=== PATIENT | male | born 1940 | race Caucasian/White ===

== ENCOUNTER 2024-02-03 15:43 | Inpatient (IN) | payer MEDICARE, BC ==
--- NOTE | 2024-02-03 16:13 | ED ---
Nausea/Vomiting/Diarrhea HPI - General Chief complaint: Nausea/Vomiting/Diarrhea Stated complaint: Generalized Weakness Time Seen by Provider: 02/03/24 15:59 Source: patient, EMS, RN notes reviewed Mode of arrival: EMS Limitations: no limitations - History of Present Illness Initial comments: This is an 83 year old male who presents to the emergency department for nausea and vomiting. Patient's daughter is at bedside and provides the majority of the history. States that she received a call from him yesterday stating that he was nauseous and short of breath. They went over to his house and he was having ongoing nausea and vomiting along with diarrhea and difficulty breathing. They called EMS, however he refused transport at that time because symptoms had started to subside. This morning the nausea and vomiting returned. He was also very weak and unable to get himself up out of his chair. This prompted family to call EMS again. Patient currently denies any chest pain, shortness of breath, or abdominal pain. MD complaint: nausea, vomiting - Related Data Home Medications Medication Instructions Recorded Confirmed Apixaban [Eliquis] 5 mg PO BID 02/03/24 02/03/24 Atorvastatin [Lipitor] 40 mg PO HS 02/03/24 02/03/24 Furosemide [Lasix] 20 mg PO DAILY PRN 02/03/24 02/03/24 Losartan [Cozaar] 25 mg PO DAILY 02/03/24 02/03/24 Metoprolol Succinate (ER) [Toprol 12.5 mg PO DAILY 02/03/24 02/03/24 Xl] Tamsulosin [Flomax] 0.4 mg PO HS 02/03/24 02/03/24 predniSONE 20 mg PO DAILY 02/03/24 02/03/24 Allergies Allergy/AdvReac Type Severity Reaction Status Date / Time itraconazole [From Sporanox] Allergy Rash/Hives Verified 02/03/24 19:35 Review of Systems ROS Statement: Those systems with pertinent positive or pertinent negative responses have been documented in the HPI. ROS Other: All systems not noted in ROS Statement are negative. Past Medical History Past Medical History: Atrial Fibrillation History of Any Multi-Drug Resistant Organisms: None Reported Past Psychological History: No Psychological Hx Reported Smoking Status: Former smoker Past Alcohol Use History: None Reported Past Drug Use History: None Reported General Exam Limitations: no limitations General appearance: alert, in no apparent distress Head exam: Present: atraumatic, normocephalic, normal inspection Respiratory exam: Present: normal lung sounds bilaterally. Absent: respiratory distress, wheezes, rales, rhonchi, stridor Cardiovascular Exam: Present: tachycardia, irregular rhythm GI/Abdominal exam: Present: soft, normal bowel sounds. Absent: distended, tenderness, guarding, rebound, rigid Neurological exam: Present: alert, oriented X3, CN II-XII intact Psychiatric exam: Present: normal affect, normal mood Skin exam: Present: warm, dry, intact, normal color. Absent: rash Course Vital Signs 02/03/24 02/03/24 02/03/24 15:46 17:36 18:13 Temperature 98.4 F 100.6 F H Pulse Rate 64 118 H 121 H Respiratory 16 17 24 Rate Blood Pressure 115/68 92/76 120/67 O2 Sat by Pulse 97 94 L 96 Oximetry 02/03/24 02/03/24 02/03/24 18:56 20:00 20:30 Temperature 100.6 F H 100.1 F H Pulse Rate 110 H 120 H Respiratory 18 18 Rate Blood Pressure 90/72 97/60 O2 Sat by Pulse 95 94 L Oximetry 02/03/24 02/03/24 02/03/24 20:40 21:00 21:10 Temperature Pulse Rate 93 117 H 99 Respiratory 18 18 16 Rate Blood Pressure 88/52 76/57 87/56 O2 Sat by Pulse 96 96 97 Oximetry 02/03/24 02/03/24 02/03/24 21:20 21:30 21:40 Temperature Pulse Rate 106 H 102 H 111 H Respiratory 18 16 18 Rate Blood Pressure 82/56 86/59 116/94 O2 Sat by Pulse 96 93 L 95 Oximetry 02/03/24 02/03/24 02/03/24 22:00 22:10 22:20 Temperature Pulse Rate 112 H 112 H 106 H Respiratory 18 18 18 Rate Blood Pressure 81/51 84/52 96/79 O2 Sat by Pulse 96 96 96 Oximetry 02/03/24 02/03/24 02/03/24 22:30 22:40 22:50 Temperature Pulse Rate 124 H 113 H 121 H Respiratory 18 18 18 Rate Blood Pressure 86/52 88/48 71/49 O2 Sat by Pulse 95 94 L 95 Oximetry 02/03/24 02/03/24 02/03/24 23:00 23:10 23:20 Temperature 98.2 F Pulse Rate 113 H 109 H 110 H Respiratory 18 18 16 Rate Blood Pressure 77/49 86/44 73/49 O2 Sat by Pulse 95 94 L 95 Oximetry 02/03/24 02/03/24 23:30 23:40 Temperature Pulse Rate 108 H 103 H Respiratory 18 18 Rate Blood Pressure 84/52 79/50 O2 Sat by Pulse 95 94 L Oximetry Medical Decision Making - Medical Decision Making This is an 83 year old male who presents to the emergency department for nausea and vomiting. Was pt. sent in by a medical professional or institution? @ -No Did you speak to anyone other than the patient for history? @ -His daughter provided the majority of the history. Did you review nursing and triage notes? @ -Yes, and I agree, it is accurate with regards to the patient's symptoms. Were old charts reviewed? @ -No Differential Diagnosis? @ -Differential Nausea and Vomiting: Gastroenteritis, cholecystitis, appendicitis, pancreatitis, migraine, benign positional vertigo, food borne illness, pyelonephritis, irritable bowel syndrome, influenza, Covid, GERD, incarcerated hernia, intestinal obstruction, this is not meant to be an all-inclusive list. EKG interpreted by me (3pts min.)? @ -EKG interpreted by me demonstrating the following: A-fib with RVR. Ventricular rate 119 bpm, QRS duration 96 ms, QTc 375 ms. X-rays interpreted by me (1pt min.)? @ -Chest x-ray obtained. My interpretation identifies a patchy opacity at the left lung base. CT interpreted by me (1pt min.)? @ -CT scan of the abdomen and pelvis obtained. My interpretation identifies no evidence of bowel wall thickening or free air. U/S interpreted by me (1pt. min.)? @ -Not obtained What testing was considered but not performed? (CT, X-rays, U/S, labs)? Why? @ -None What meds were considered but not given? Why? @ -None Did you discuss the management of the patient with other professionals? @ -Yes, Dr. Brooks, who accepts the patient for admission. Did you reconcile home meds? @ -Yes Was smoking cessation discussed for >3mins.? @ -No Was critical care preformed (if so, how long)? @ -No Were there social determinants of health that impacted care today? How? (Joseph elessness, low income, unemployed, alcoholism, drug addiction, transportation, low edu. Level, literacy, decrease access to med. care, penitentiary, rehab)? @ -No Was there de-escalation of care discussed even if they declined? (Discuss DNR or withdrawal of care, Hospice)? @ -No What co-morbidities impacted this encounter? (DM, HTN, Smoking, COPD, CAD, C ancer, CVA, Hep., AIDS, mental health diagnosis, sleep apnea, morbid obesity)? @ -A-fib, CAD, HTN Was patient admitted / discharged? @ -Admitted. Lab work demonstrates signs of dehydration. Troponin negative, but on the higher side of normal at 0.026. COVID, influenza, and RSV testing negative. Urinalysis demonstrates rare bacteria, but is not overly suggestive of infection. Urine sent for culture. Chest x-ray demonstrates a patchy left lung base opacity suggestive of atelectasis versus less likely developing pneumonia. CT scan of the abdomen and pelvis reveals no acute process. Patient's heart rate was within normal limits on arrival, however he then went into A-fib with RVR. He was rehydrated with a liter bolus of IV fluids, however he remained in A-fib with RVR. He was subsequently started on a Cardizem drip. Nausea was well-controlled with Zofran and Reglan. When the patient was reevaluated, he was found to be febrile with a temperature 100.6 F. Ofirmev administered, however he remained febrile and was then given ibuprofen. Tem perature eventually came down. He remained in A-fib with RVR, however he started to become hypotensive and the Cardizem drip was discontinued. His heart rate had improved at that point. Patient appears to have some sort of infection given the fever and A-fib with RVR, however the specific infection is not clear. It may be related to pneumonia or a UTI, however neither of those are definitive. It could also be viral in nature. He was started on the pneumonia protocol with ceftriaxone and azithromycin to cover for potential infectious process. Blood culture and procalcitonin level ordered as well. Patient admitted to medicine for A-fib with RVR, nausea and vomiting, and infection of unknown etiology. Consult placed for cardiology and infectious disease. Case discussed with ED attending Dr. Gómez. Undiagnosed new problem with uncertain prognosis? @ -None Drug Therapy requiring intensive monitoring for toxicity (Heparin, Nitro, Insulin, Cardizem)? @ -Cardizem Were any procedures done? @ -None Diagnosis/symptom? @ -A-fib with RVR, nausea and vomiting, infection of unknown etiology Acute, or Chronic, or Acute on Chronic? @ -Acute Uncomplicated (without systemic symptoms) or Complicated (systemic symptoms)? @ -Complicated Side effects of treatment? @ -None Exacerbation, Progression, or Severe Exacerbation] @ -Not applicable Poses a threat to life or bodily function? @ -Yes, can lead to septic shock and - Lab Data Result diagrams: 02/03/24 16:14 02/03/24 16:14 Lab Results 02/03/24 02/03/24 02/03/24 Range/Units 16:14 16:14 16:14 WBC 8.0 (3.8-10.6) k/uL RBC 4.40 (4.30-5.90) m/uL Hgb 14.1 (13.0-17.5) gm/dL Hct 43.2 (39.0-53.0) % MCV 98.2 (80.0-100.0) fL MCH 32.0 (25.0-35.0) pg MCHC 32.6 (31.0-37.0) g/dL RDW 13.8 (11.5-15.5) % Plt Count 136 L (150-450) k/uL MPV 8.1 Neutrophils % 88 % Lymphocytes % 5 % Monocytes % 5 % Eosinophils % 1 % Basophils % 0 % Neutrophils # 7.0 (1.3-7.7) k/uL Lymphocytes # 0.4 L (1.0-4.8) k/uL Monocytes # 0.4 (0-1.0) k/uL Eosinophils # 0.1 (0-0.7) k/uL Basophils # 0.0 (0-0.2) k/uL Sodium 135 L (137-145) mmol/L Potassium 4.0 (3.5-5.1) mmol/L Chloride 103 (98-107) mmol/L Carbon Dioxide 27 (22-30) mmol/L Anion Gap 5 mmol/L BUN 35 H (9-20) mg/dL Creatinine 0.81 (0.66-1.25) mg/dL Est GFR (CKD-EPI)AfAm >90 (>60 ml/min/1.73 sqM) Est GFR (CKD-EPI)NonAf 82 (>60 ml/min/1.73 sqM) Glucose 115 H (74-99) mg/dL Plasma Lactic Acid Emeka 1.9 (0.7-2.0) mmol/L Calcium 8.3 L (8.4-10.2) mg/dL Magnesium 1.7 (1.6-2.3) mg/dL Total Bilirubin 1.2 (0.2-1.3) mg/dL AST 21 (17-59) U/L ALT 15 (4-49) U/L Alkaline Phosphatase 70 (38-126) U/L Troponin I (0.000-0.034) ng/mL C-Reactive Protein (<1.0) mg/dL NT-Pro-B Natriuret Pep pg/mL Total Protein 5.9 L (6.3-8.2) g/dL Albumin 3.6 (3.5-5.0) g/dL Lipase 27 (23-300) U/L Urine Color Urine Appearance (Clear) Urine pH (5.0-8.0) Ur Specific Gillett (1.001-1.035) Urine Protein (Negative) Urine Glucose (UA) (Negative) Urine Ketones (Negative) Urine Blood (Negative) Urine Nitrite (Negative) Urine Bilirubin (Negative) Urine Urobilinogen (<2.0) mg/dL Ur Leukocyte Esterase (Negative) Urine RBC (0-5) /hpf Urine WBC (0-5) /hpf Ur Squamous Epith Cells (0-4) /hpf Urine Bacteria (None) /hpf Urine Mucus (None) /hpf Urine Yeast (Budding) (None) /hpf Influenza Type A (PCR) (Not Detectd) Influenza Type B (PCR) (Not Detectd) RSV (PCR) (Not Detectd) SARS-CoV-2 (PCR) (Not Detectd) 02/03/24 02/03/24 02/03/24 Range/Units 16:14 16:14 16:14 WBC (3.8-10.6) k/uL RBC (4.30-5.90) m/uL Hgb (13.0-17.5) gm/dL Hct (39.0-53.0) % MCV (80.0-100.0) fL MCH (25.0-35.0) pg MCHC (31.0-37.0) g/dL RDW (11.5-15.5) % Plt Count (150-450) k/uL MPV Neutrophils % % Lymphocytes % % Monocytes % % Eosinophils % % Basophils % % Neutrophils # (1.3-7.7) k/uL Lymphocytes # (1.0-4.8) k/uL Monocytes # (0-1.0) k/uL Eosinophils # (0-0.7) k/uL Basophils # (0-0.2) k/uL Sodium (137-145) mmol/L Potassium (3.5-5.1) mmol/L Chloride (98-107) mmol/L Carbon Dioxide (22-30) mmol/L Anion Gap mmol/L BUN (9-20) mg/dL Creatinine (0.66-1.25) mg/dL Est GFR (CKD-EPI)AfAm (>60 ml/min/1.73 sqM) Est GFR (CKD-EPI)NonAf (>60 ml/min/1.73 sqM) Glucose (74-99) mg/dL Plasma Lactic Acid Emeka (0.7-2.0) mmol/L Calcium (8.4-10.2) mg/dL Magnesium (1.6-2.3) mg/dL Total Bilirubin (0.2-1.3) mg/dL AST (17-59) U/L ALT (4-49) U/L Alkaline Phosphatase (38-126) U/L Troponin I 0.026 (0.000-0.034) ng/mL C-Reactive Protein (<1.0) mg/dL NT-Pro-B Natriuret Pep 1880 pg/mL Total Protein (6.3-8.2) g/dL Albumin (3.5-5.0) g/dL Lipase (23-300) U/L Urine Color Urine Appearance (Clear) Urine pH (5.0-8.0) Ur Specific Gillett (1.001-1.035) Urine Protein (Negative) Urine Glucose (UA) (Negative) Urine Ketones (Negative) Urine Blood (Negative) Urine Nitrite (Negative) Urine Bilirubin (Negative) Urine Urobilinogen (<2.0) mg/dL Ur Leukocyte Esterase (Negative) Urine RBC (0-5) /hpf Urine WBC (0-5) /hpf Ur Squamous Epith Cells (0-4) /hpf Urine Bacteria (None) /hpf Urine Mucus (None) /hpf Urine Yeast (Budding) (None) /hpf Influenza Type A (PCR) Not Detected (Not Detectd) Influenza Type B (PCR) Not Detected (Not Detectd) RSV (PCR) Not Detected (Not Detectd) SARS-CoV-2 (PCR) Not Detected (Not Detectd) 02/03/24 02/03/24 Range/Units 19:15 20:00 WBC (3.8-10.6) k/uL RBC (4.30-5.90) m/uL Hgb (13.0-17.5) gm/dL Hct (39.0-53.0) % MCV (80.0-100.0) fL MCH (25.0-35.0) pg MCHC (31.0-37.0) g/dL RDW (11.5-15.5) % Plt Count (150-450) k/uL MPV Neutrophils % % Lymphocytes % % Monocytes % % Eosinophils % % Basophils % % Neutrophils # (1.3-7.7) k/uL Lymphocytes # (1.0-4.8) k/uL Monocytes # (0-1.0) k/uL Eosinophils # (0-0.7) k/uL Basophils # (0-0.2) k/uL Sodium (137-145) mmol/L Potassium (3.5-5.1) mmol/L Chloride (98-107) mmol/L Carbon Dioxide (22-30) mmol/L Anion Gap mmol/L BUN (9-20) mg/dL Creatinine (0.66-1.25) mg/dL Est GFR (CKD-EPI)AfAm (>60 ml/min/1.73 sqM) Est GFR (CKD-EPI)NonAf (>60 ml/min/1.73 sqM) Glucose (74-99) mg/dL Plasma Lactic Acid Emeka (0.7-2.0) mmol/L Calcium (8.4-10.2) mg/dL Magnesium (1.6-2.3) mg/dL Total Bilirubin (0.2-1.3) mg/dL AST (17-59) U/L ALT (4-49) U/L Alkaline Phosphatase (38-126) U/L Troponin I (0.000-0.034) ng/mL C-Reactive Protein 2.5 H (<1.0) mg/dL NT-Pro-B Natriuret Pep pg/mL Total Protein (6.3-8.2) g/dL Albumin (3.5-5.0) g/dL Lipase (23-300) U/L Urine Color Light Yellow Urine Appearance Clear (Clear) Urine pH 5.0 (5.0-8.0) Ur Specific Gillett 1.021 (1.001-1.035) Urine Protein Negative (Negative) Urine Glucose (UA) Negative (Negative) Urine Ketones Negative (Negative) Urine Blood Moderate H (Negative) Urine Nitrite Negative (Negative) Urine Bilirubin Negative (Negative) Urine Urobilinogen <2.0 (<2.0) mg/dL Ur Leukocyte Esterase Negative (Negative) Urine RBC 12 H (0-5) /hpf Urine WBC 2 (0-5) /hpf Ur Squamous Epith Cells 1 (0-4) /hpf Urine Bacteria Rare H (None) /hpf Urine Mucus Few H (None) /hpf Urine Yeast (Budding) Rare H (None) /hpf Influenza Type A (PCR) (Not Detectd) Influenza Type B (PCR) (Not Detectd) RSV (PCR) (Not Detectd) SARS-CoV-2 (PCR) (Not Detectd) - Radiology Data Radiology results: report reviewed, image reviewed Disposition Clinical Impression: Atrial fibrillation with RVR, Nausea & vomiting, Infection of uncertain etiology Disposition: ADMITTED IP TO THIS HOSP
[2024-02-03 16:25] LABS: Basophils % (A) 0 %; Eosinophils # (A) 0.1 k/uL (0-0.7); Eosinophils % (A) 1 %; HCT 43.2 % (39.0-53.0); HGB 14.1 gm/dL (13.0-17.5); Lymphocytes # (A) 0.4 k/uL (1.0-4.8); Lymphocytes % (A) 5 %; MCHC 32.6 g/dL (31.0-37.0); MCV 98.2 fL (80.0-100.0); Mean Platelet Volume 8.1; Monocytes # (A) 0.4 k/uL (0-1.0); Monocytes % (A) 5 %; Neutrophils % (A) 88 %; Platelet Count 136 k/uL (150-450); RDW 13.8 % (11.5-15.5)
[2024-02-03] MEDS: FAMOTIDINE 20 MG/2 ML VIAL IV STA (16:35)
[2024-02-03] MEDS: ONDANSETRON 4 MG/2 ML VIAL IVP STA (16:35)
[2024-02-03] MEDS: SODIUM CHLORIDE 0.9% 1,000 ML IV STA (16:36)
[2024-02-03 16:37] LABS: ALT 15 U/L (4-49); AST 21 U/L (17-59); African American GFR (CKD) >90 (>60 ml/min/1.73 sqM); Albumin 3.6 g/dL (3.5-5.0); Alkaline Phosphatase 70 U/L (38-126); Anion Gap 5 mmol/L; Blood Urea Nitrogen 35 mg/dL (9-20); Calcium 8.3 mg/dL (8.4-10.2); Carbon Dioxide 27 mmol/L (22-30); Chloride 103 mmol/L (98-107); Glucose 115 mg/dL (74-99); Lipase 27 U/L (23-300); Magnesium 1.7 mg/dL (1.6-2.3); Non-African American GFR(CKD) 82 (>60 ml/min/1.73 sqM); Sodium 135 mmol/L (137-145); Total Bilirubin 1.2 mg/dL (0.2-1.3); Total Protein 5.9 g/dL (6.3-8.2)
--- NOTE | 2024-02-03 17:21 | XR ---
EXAMINATION TYPE: XR chest 2V DATE OF EXAM: 02/03/2024 5:14 PM COMPARISON: None available. CLINICAL INDICATION: Male, 83 years old with history of STEVEN; H TECHNIQUE: XR chest 2V Frontal and lateral views of the chest. FINDINGS: Cardiac silhouette within normal limits for size. Patchy left lung base opacity which could reflect atelectasis and/or pneumonia. I find no pleural eff usion. No pneumothorax. No acute osseous abnormality. IMPRESSION: Patchy left lung base opacity suggestive of atelectasis versus less likely developing pneumonia. [facility], , 02/03/2024 5:19 PM
[2024-02-03] MEDS: METOCLOPRAMIDE 5 MG/ML 2 ML VIAL IVP STA (17:43)
[2024-02-03] MEDS: ACETAMINOPHEN IV (For NPO) 1,000 MG in EMPTY BAG 1 BAG IVPB STA (18:08)
[2024-02-03] MEDS: DILTIAZEM 125 MG in SODIUM CHLORIDE 0.9% 100 ML IV SCH (18:44)
[2024-02-03] MEDS ORDERED: PNEUMONIA PROTOCOL UTILIZED 1 EACH MISC PO PRN (19:00)
[2024-02-03] MEDS: SODIUM CHLORIDE 0.9% 500 ML 500 ML IV STA (19:01)
[2024-02-03] MEDS: IBUPROFEN 800 MG TAB PO STA (19:15)
--- NOTE | 2024-02-03 20:03 | CT ---
EXAMINATION TYPE: CT abdomen pelvis w con DATE OF EXAM: 02/03/2024 7:50 PM COMPARISON: None available. CLINICAL INDICATION: Male, 83 years old with history of N/V, fever; Abdominal pain, nausea and vomiti ng onset this morning. TECHNIQUE: Axial CT abdomen pelvis w con;Sagittal and coronal reformats were created on a separate w orkstation. Contrast used:80 mL of Isovue 300 with IV Contrast, (none if empty) Oral contrast used: without Oral Contrast (none if empty) CT DLP: 1159.9 mGycm, Automated exposure control for dose reduction was used. FINDINGS: LOWER CHEST: Unremarkable ABDOMEN LIVER: Unremarkable GALLBLADDER AND BILE DUCTS: Unremarkable. PANCREAS: Unremarkable. SPLEEN: Unremarkable. ADRENAL GLANDS: Unremarkable. KIDNEYS AND URETERS: Simple cysts bilaterally and additional hypodense lesions which are indeterminat e. For example, a 12 mm exophytic lesion in the left kidney (axial series 3 image 32). Punctate nonob structing left renal calculus. Additional small indeterminate lesions in the right kidney measuring u p to 10 mm (image 35). PELVIS BLADDER: Multiple bladder diverticula. REPRODUCTIVE: Unremarkable. ABDOMEN & PELVIS STOMACH AND BOWEL: Stomach and duodenum are unremarkable. Scattered diverticula are noted throughout the colon. No evidence of bowel obstruction. PERITONEUM/RETROPERITONEUM: No evidence of pneumoperitoneum or free fluid. VASCULATURE: No evidence of aortic aneurysm. MUSCULOSKELETAL: Osseous structures demineralized. Multilevel thoracolumbar spinal degenerative carrillo es. Grade 1 anterolisthesis of L4 and L5. [id number] age-indeterminate compression deformities of the T12 and L1 vertebral bodies. LYMPH NODES: No gross evidence for lymphadenopathy. SOFT TISSUE/ABDOMINAL WALL: Unremarkable IMPRESSION: 1. No acute abnormality in the abdomen/pelvis or CT findings to explain reported symptoms. 2. Age-indeterminate mild to moderate compression fractures of the T12 and L1 vertebral bodies. 3. Colonic diverticulosis. 4. Multiple bladder diverticula. 5. Indeterminate 12 mm exophytic lesion in the left kidney. Recommend outpatient MRI with IV contras t for further evaluation. [facility], , 02/03/2024 8:01 PM
[2024-02-03 20:13] LABS: Appearance,Urine Clear (Clear); Bacteria,Urine Rare /hpf; Bilirubin,Urine Negative (Negative); Blood,Urine Moderate (Negative); Budding Yeast,Urine Rare /hpf; Color,Urine Light Yellow; Glucose,Urine (UA) Negative (Negative); Ketones,Urine Negative (Negative); Leukocyte Esterase,Urine Negative (Negative); Mucus,Urine Few /hpf; Nitrite,Urine Negative (Negative); Protein,Urine Negative (Negative); RBC,Urine 12 /hpf (0-5); Specific Gravity,Urine 1.021 (1.001-1.035); Squamous Epithelial Cell,Urine 1 /hpf (0-4); Urobilinogen,Urine <2.0 mg/dL (<2.0); WBC,Urine 2 /hpf (0-5)
[2024-02-03] MEDS ORDERED: ONDANSETRON 4 MG/2 ML VIAL IVP PRN (20:28)
[2024-02-03] MEDS ORDERED: HYDROcodone/APAP 5-325MG 1 EACH TAB PO PRN (20:28)
[2024-02-03] MEDS ORDERED: ACETAMINOPHEN TAB 325 MG TAB PO PRN (20:28)
[2024-02-03] MEDS ORDERED: MORPHINE SULFATE 4 MG/ML SYRINGE IV PRN (20:28)
[2024-02-03] MEDS ORDERED: IBUPROFEN 400 MG TAB PO PRN (20:28)
[2024-02-03] MEDS ORDERED: NALOXONE 0.4 MG/ML 1 ML VIAL IV PRN (20:28)
[2024-02-03] MEDS ORDERED: FUROSEMIDE 20 MG TAB PO PRN (20:31)
[2024-02-03] MEDS: DILTIAZEM DRIP BOLUS FROM BAG 1 MG SOLN IV ONE (20:48)
[2024-02-03] MEDS: SODIUM CHLORIDE 0.9% 1,000 ML IV SCH (20:57)
[2024-02-03] MEDS: ATORVASTATIN 40 MG TAB PO SCH (20:58)
[2024-02-03] MEDS: TAMSULOSIN 0.4 MG CAP.ER.24H PO SCH (20:58)
[2024-02-03] MEDS: APIXABAN 5 MG TAB PO SCH (20:58)
[2024-02-03] MEDS: AZITHROMYCIN 500 MG in SODIUM CHLORIDE 0.9% 250 ML IVPB STA (21:03)
[2024-02-04] MEDS: SODIUM CHLORIDE 0.9% 500 ML 500 ML IV ONE (00:07)
[2024-02-04] MEDS: DEXTROSE 5% IN WATER 100 ML with AMIODARONE 150 MG IV ONE (03:36)
[2024-02-04] MEDS: AMIODARONE 360 MG in DEXTROSE 5% IN WATER 200 ML IV ONE (04:16)
[2024-02-04] MEDS: predniSONE 20 MG TAB PO SCH (08:11)
[2024-02-04] MEDS: PANTOPRAZOLE 40 MG/10 ML VIAL IV SCH (08:11)
[2024-02-04] MEDS: LOSARTAN 25 MG TAB PO SCH (08:11)
[2024-02-04] MEDS: METOPROLOL SUCCINATE (ER) 25 MG TAB.ER.24H PO SCH ×2 (08:11→12:49)
--- NOTE | 2024-02-04 09:42 | P.HPIM ---
History of Present Illness This is a pleasant 83 years old male with past medical history of atrial fibrillation on Eliquis at home. Presents because of vomiting for 3 days duration, he said he has been vomiting frequently for 2 days he could not eat and drink, yesterday he tried to drink and right away he threw up However patient has no abdominal pain, yesterday had normal bowel movement no urinary complaints like dysuria or change in frequency, no chest pain or dyspnea, he has mild headache but no dizziness weakness or numbness He quit smoking more than 20 years ago no alcohol or illicit drugs He complains from chronic lower extremity and ankle neuropathy at baseline he uses a walker. Patient also denies abdominal pain or back pain On admission patient has been having a fever of 100.6 Blood pressure borderline 91/72, heart rate 107 proBNP is elevated 1880 Urine analysis showing RBCs about 12 with moderate blood EKG showing A-fib with a rate of 116 Chest x-ray showing left lower lobe opacity, I reviewed the chest x-ray by myself and agree. Most likely related to pneumonia CT of the abdomen and pelvis is negative for acute process but showing age- indeterminate mild to moderate compression fracture of T12 and L1, multiple bladder diverticular disease and 12 mm left kidney lesion needs outpatient MRI with IV contrast per radiologist Review of Systems Review of systems CONSTITUTIONAL: No fever, no malaise, no fatigue. HEENT: No recent visual problems or hearing problems. Denied any sore throat. CARDIOVASCULAR: No orthopnea, PND, no palpitations, no syncope. PULMONARY: No shortness of breath, no cough, no hemoptysis. GASTROINTESTINAL: No diarrhea, no nausea, no vomiting, no abdominal pain. Normoactive bowel sounds. NEUROLOGICAL: No headaches, no weakness, no numbness. HEMATOLOGICAL: Denies any bleeding or petechiae. GENITOURINARY: Denies any burning micturition, frequency, or urgency. MUSCULOSKELETAL/RHEUMATOLOGICAL: Denies any joint pain, swelling, or any muscle pain. ENDOCRINE: Denies any polyuria or polydipsia. Past Medical History Past Medical History: Atrial Fibrillation History of Any Multi-Drug Resistant Organisms: None Reported Past Surgical History: Heart Catheterization With Stent Additional Past Surgical History / Comment(s): heart cath 2017 Past Psychological History: No Psychological Hx Reported Smoking Status: Former smoker Past Alcohol Use History: None Reported Past Drug Use History: None Reported Medications and Allergies Home Medications Medication Instructions Recorded Confirmed Type Apixaban [Eliquis] 5 mg PO BID 02/03/24 02/03/24 History Atorvastatin [Lipitor] 40 mg PO HS 02/03/24 02/03/24 History Furosemide [Lasix] 20 mg PO DAILY PRN 02/03/24 02/03/24 History Losartan [Cozaar] 25 mg PO DAILY 02/03/24 02/03/24 History Metoprolol Succinate (ER) [Toprol 12.5 mg PO DAILY 02/03/24 02/03/24 History Xl] Tamsulosin [Flomax] 0.4 mg PO HS 02/03/24 02/03/24 History predniSONE 20 mg PO DAILY 02/03/24 02/03/24 History Allergies Allergy/AdvReac Type Severity Reaction Status Date / Time itraconazole [From Sporanox] Allergy Rash/Hives Verified 02/03/24 19:35 Physical Exam Vitals: Vital Signs Temp Pulse Resp BP Pulse Ox 02/04/24 06:30 107 H 18 91/66 98 02/04/24 06:15 113 H 16 85/49 98 02/04/24 06:00 105 H 16 84/55 99 02/04/24 05:45 102 H 18 98/55 99 02/04/24 05:30 123 H 16 100/48 99 02/04/24 05:15 114 H 16 90/47 99 02/04/24 05:00 104 H 16 78/65 98 02/04/24 04:45 120 H 16 94/60 98 02/04/24 04:30 113 H 18 111/80 99 02/04/24 04:10 121 H 18 103/78 98 02/04/24 04:00 142 H 18 86/67 98 02/04/24 03:50 98.1 F 113 H 18 97/63 98 02/04/24 03:30 146 H 18 103/58 98 02/04/24 03:15 172 H 18 86/59 95 02/04/24 02:45 137 H 18 112/72 98 02/04/24 02:30 134 H 20 101/76 99 02/04/24 02:15 131 H 20 96/83 98 02/04/24 02:00 131 H 18 90/62 99 02/04/24 01:45 116 H 20 104/60 98 02/04/24 01:30 118 H 21 96/63 98 02/04/24 01:15 126 H 18 112/95 91 L 02/04/24 01:00 101 H 18 82/62 95 02/04/24 00:45 98 18 89/59 94 L 02/04/24 00:30 106 H 18 81/58 95 02/04/24 00:15 123 H 16 88/51 93 L 02/04/24 00:00 105 H 18 73/50 98 02/03/24 23:45 110 H 16 82/54 95 02/03/24 23:40 103 H 18 79/50 94 L 02/03/24 23:30 108 H 18 84/52 95 02/03/24 23:20 110 H 16 73/49 95 02/03/24 23:10 98.2 F 109 H 18 86/44 94 L 02/03/24 23:00 113 H 18 77/49 95 02/03/24 22:50 121 H 18 71/49 95 02/03/24 22:40 113 H 18 88/48 94 L 02/03/24 22:30 124 H 18 86/52 95 02/03/24 22:20 106 H 18 96/79 96 02/03/24 22:10 112 H 18 84/52 96 02/03/24 22:00 112 H 18 81/51 96 02/03/24 21:40 111 H 18 116/94 95 02/03/24 21:30 102 H 16 86/59 93 L 02/03/24 21:20 106 H 18 82/56 96 02/03/24 21:10 99 16 87/56 97 02/03/24 21:00 117 H 18 76/57 96 02/03/24 20:40 93 18 88/52 96 02/03/24 20:30 120 H 18 97/60 94 L 02/03/24 20:00 100.1 F H 110 H 18 90/72 95 02/03/24 18:56 100.6 F H 02/03/24 18:13 121 H 24 120/67 96 02/03/24 17:36 100.6 F H 118 H 17 92/76 94 L 02/03/24 15:46 98.4 F 64 16 115/68 97 Intake and Output 02/03/24 02/04/24 02/04/24 22:59 06:59 14:59 Intake Total 11.917 Balance 11.917 Intake: Intake, IV Titration 11.917 Amount Diltiazem 125 mg In 11.917 Sodium Chloride 0.9% 100 ml @ 5 MG/HR 5 mls/hr IV .Q24H [facility] Rx#:[id number] Other: Weight 84.368 kg GENERAL: The patient is alert and oriented x3, not in any acute distress. Well developed, well nourished. HEENT: Pupils are round and equally reacting to light. EOMI. No scleral icterus. No conjunctival pallor. Normocephalic, atraumatic. No pharyngeal erythema. No thyromegaly. CARDIOVASCULAR: S1 and S2 present. No murmurs, rubs, or gallops. PULMONARY: Chest is clear to auscultation, no wheezing , no crackles. ABDOMEN: Soft, nontender, nondistended, normoactive bowel sounds. No palpable organomegaly. MUSCULOSKELETAL: No joint swelling or deformity. EXTREMITIES: No cyanosis, clubbing, or pedal edema. NEUROLOGICAL: Gross neurological examination did not reveal any focal deficits. SKIN: No rashes. no petechiae. Results CBC & Chem 7: 02/03/24 16:14 02/03/24 16:14 Labs: Abnormal Lab Results - Last 24 Hours (Table) 02/03/24 02/03/24 02/03/24 Range/Units 16:14 16:14 19:15 Plt Count 136 L (150-450) k/uL Lymphocytes # 0.4 L (1.0-4.8) k/uL Sodium 135 L (137-145) mmol/L BUN 35 H (9-20) mg/dL Glucose 115 H (74-99) mg/dL Calcium 8.3 L (8.4-10.2) mg/dL C-Reactive Protein 2.5 H (<1.0) mg/dL Total Protein 5.9 L (6.3-8.2) g/dL Urine Blood (Negative) Urine RBC (0-5) /hpf Urine Bacteria (None) /hpf Urine Mucus (None) /hpf Urine Yeast (Budding) (None) /hpf 02/03/24 Range/Units 20:00 Plt Count (150-450) k/uL Lymphocytes # (1.0-4.8) k/uL Sodium (137-145) mmol/L BUN (9-20) mg/dL Glucose (74-99) mg/dL Calcium (8.4-10.2) mg/dL C-Reactive Protein (<1.0) mg/dL Total Protein (6.3-8.2) g/dL Urine Blood Moderate H (Negative) Urine RBC 12 H (0-5) /hpf Urine Bacteria Rare H (None) /hpf Urine Mucus Few H (None) /hpf Urine Yeast (Budding) Rare H (None) /hpf Assessment and Plan Assessment: Left lower lobe pneumonia Recurrent nausea vomiting and dehydration x 3 days A-fib and RVR, present on admission Mild hematuria, microscopic with multiple bladder diverticula and left kidney lesion 112 mm Chronic compression fracture of T12-L1 Plan: Continue with no IV fluids D5 normal saline at 75 mL/h Continue ceftriaxone and Zithromax Follow-up sputum culture and blood culture Infectious disease consult Cardiology team consult Continue with Luis Guaman urology consult for left kidney lesion, this was explained for the patient and risk of cancer explained to him as well Labs and medication were reviewed.. Continue same treatment. Continue with symptomatic treatment. Resume home medication. Monitor labs and vitals. DVT and GI prophylaxis. Further recommendations as per clinical course of the patient DVT prophylaxis: Eliquis GI Prophylaxis: Pepcid PT/OT: Pending Prognosis is guarded
[2024-02-04] MEDS: AMIODARONE 450 MG in DEXTROSE 5% IN WATER 250 ML IV SCH (10:30)
[2024-02-04] MEDS: DEXTROSE 5%-0.9% NACL 1,000 ML IV SCH (10:33)
--- NOTE | 2024-02-04 12:44 | P.CRDCN ---
History of Present Illness Consult date: 02/04/24 History of present illness: HISTORY OF PRESENTING ILLNESS 83-year-old male with past medical history of atrial fibrillation on anticoagulation with Eliquis. He is known to Dr. Sterling in [facility]. He also has prior history of CAD status post PCI in 2017. He has longstanding chronic atrial fibrillation. He is not got an ablation or cardioversion procedure done in the past. This time he presented to the hospital because of poor appetite, feeling weak for 3 to 4 days increased nausea vomiting. He was also noticed to have increased heart rate and low blood pressure and subjective fevers. On admission temp was 100.6 , heart rate 107, BP 91/72, EKG shows atrial fibrillation with RVR heart rate 119, frequent PVCs, Social Hx: Ex-smoker, denies any alcohol use drug use marijuana use Family Hx: non contributary to current clinical scenario REVIEW OF SYSTEMS 14 point review of system is negative except what is mentioned above in HPI. PHYSICAL EXAMINATION Neck: Brisk carotid upstroke, no jugular venous distention. Lungs: Mild decreased air entry in bilateral bases likely due to atelectasis Heart: Irregularly irregular pulse, no significant murmurs appreciated Abdomen: Soft nontender, positive bowel sounds. Extremities: 1-2+ pitting edema bilateral lower extremity with cold and clammy extremities, bluish discoloration neuro: Alert, oritented, no focal deficits. Detailed neuro exam was not performed. 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 Suspect PAD Ex-smoker Hypomagnesemia Nausea vomiting Hypotension, likely related to my dehydration and poor oral intake because of nausea Generalized weakness, due to above UTI Cardiac testing Admission labs: NT-proBNP 1800, initial Trope negative, magnesium 1.7 Admission ECG shows A-fib RVR heart rate 119 bpm, PVCs. Telemetry 02/04/2024, A-fib heart rate 104 bpm, intermittent PVCs PLAN Obtain echocardiogram Repeat troponin levels, TSH, lipid, HbA1c Give 3 g of magnesium sulfate. Continue amiodarone drip for now. Increase metoprolol succinate to 25 mg daily. I would not do long-term rhythm control with amiodarone. May consider cardioversion/ablation on outpatient basis. Hold losartan due to low blood pressure Obtain orthostatic vital signs Obtain bilateral lower extremity arterial doppler Tee Ramires, MD, FACC, RPVI Thank you for allowing [facility] to participate in this patient's care. Feel free to reach out in case of any followup questions. Past Medical History Past Medical History: Atrial Fibrillation History of Any Multi-Drug Resistant Organisms: None Reported Past Surgical History: Heart Catheterization With Stent Additional Past Surgical History / Comment(s): heart cath 2017 Past Psychological History: No Psychological Hx Reported Smoking Status: Former smoker Past Alcohol Use History: None Reported Past Drug Use History: None Reported Medications and Allergies Home Medications Medication Instructions Recorded Confirmed Type Apixaban [Eliquis] 5 mg PO BID 02/03/24 02/03/24 History Atorvastatin [Lipitor] 40 mg PO HS 02/03/24 02/03/24 History Furosemide [Lasix] 20 mg PO DAILY PRN 02/03/24 02/03/24 History Losartan [Cozaar] 25 mg PO DAILY 02/03/24 02/03/24 History Metoprolol Succinate (ER) [Toprol 12.5 mg PO DAILY 02/03/24 02/03/24 History Xl] Tamsulosin [Flomax] 0.4 mg PO HS 02/03/24 02/03/24 History predniSONE 20 mg PO DAILY 02/03/24 02/03/24 History Allergies Allergy/AdvReac Type Severity Reaction Status Date / Time itraconazole [From Sporanox] Allergy Rash/Hives Verified 02/03/24 19:35 Physical Exam Vitals: Vital Signs Temp Pulse Resp BP Pulse Ox 02/04/24 10:54 107 H 18 108/67 95 02/04/24 06:30 107 H 18 91/66 98 02/04/24 06:15 113 H 16 85/49 98 02/04/24 06:00 105 H 16 84/55 99 02/04/24 05:45 102 H 18 98/55 99 02/04/24 05:30 123 H 16 100/48 99 02/04/24 05:15 114 H 16 90/47 99 02/04/24 05:00 104 H 16 78/65 98 02/04/24 04:45 120 H 16 94/60 98 02/04/24 04:30 113 H 18 111/80 99 02/04/24 04:10 121 H 18 103/78 98 02/04/24 04:00 142 H 18 86/67 98 02/04/24 03:50 98.1 F 113 H 18 97/63 98 02/04/24 03:30 146 H 18 103/58 98 02/04/24 03:15 172 H 18 86/59 95 02/04/24 02:45 137 H 18 112/72 98 02/04/24 02:30 134 H 20 101/76 99 02/04/24 02:15 131 H 20 96/83 98 02/04/24 02:00 131 H 18 90/62 99 02/04/24 01:45 116 H 20 104/60 98 02/04/24 01:30 118 H 21 96/63 98 02/04/24 01:15 126 H 18 112/95 91 L 02/04/24 01:00 101 H 18 82/62 95 02/04/24 00:45 98 18 89/59 94 L 02/04/24 00:30 106 H 18 81/58 95 02/04/24 00:15 123 H 16 88/51 93 L 02/04/24 00:00 105 H 18 73/50 98 02/03/24 23:45 110 H 16 82/54 95 02/03/24 23:40 103 H 18 79/50 94 L 02/03/24 23:30 108 H 18 84/52 95 02/03/24 23:20 110 H 16 73/49 95 02/03/24 23:10 98.2 F 109 H 18 86/44 94 L 02/03/24 23:00 113 H 18 77/49 95 02/03/24 22:50 121 H 18 71/49 95 02/03/24 22:40 113 H 18 88/48 94 L 02/03/24 22:30 124 H 18 86/52 95 02/03/24 22:20 106 H 18 96/79 96 02/03/24 22:10 112 H 18 84/52 96 02/03/24 22:00 112 H 18 81/51 96 02/03/24 21:40 111 H 18 116/94 95 02/03/24 21:30 102 H 16 86/59 93 L 02/03/24 21:20 106 H 18 82/56 96 02/03/24 21:10 99 16 87/56 97 02/03/24 21:00 117 H 18 76/57 96 12/25/24 20:40 93 18 88/52 96 02/03/24 20:30 120 H 18 97/60 94 L 02/03/24 20:00 100.1 F H 110 H 18 90/72 95 02/03/24 18:56 100.6 F H 02/03/24 18:13 121 H 24 120/67 96 02/03/24 17:36 100.6 F H 118 H 17 92/76 94 L 02/03/24 15:46 98.4 F 64 16 115/68 97 Intake and Output 02/03/24 02/04/24 02/04/24 22:59 06:59 14:59 Intake Total 11.917 Balance 11.917 Intake: Intake, IV Titration 11.917 Amount Diltiazem 125 mg In 11.917 Sodium Chloride 0.9% 100 ml @ 5 MG/HR 5 mls/hr IV .Q24H [facility] Rx#:[id number] Other: Weight 84.368 kg Results 02/03/24 16:14 02/03/24 16:14 Cardiac Enzymes 02/03/24 02/03/24 Range/Units 16:14 16:14 AST 21 (17-59) U/L Troponin I 0.026 (0.000-0.034) ng/mL CBC 02/03/24 Range/Units 16:14 WBC 8.0 (3.8-10.6) k/uL RBC 4.40 (4.30-5.90) m/uL Hgb 14.1 (13.0-17.5) gm/dL Hct 43.2 (39.0-53.0) % Plt Count 136 L (150-450) k/uL Comprehensive Metabolic Panel 02/03/24 Range/Units 16:14 Sodium 135 L (137-145) mmol/L Potassium 4.0 (3.5-5.1) mmol/L Chloride 103 (98-107) mmol/L Carbon Dioxide 27 (22-30) mmol/L BUN 35 H (9-20) mg/dL Creatinine 0.81 (0.66-1.25) mg/dL Glucose 115 H (74-99) mg/dL Calcium 8.3 L (8.4-10.2) mg/dL AST 21 (17-59) U/L ALT 15 (4-49) U/L Alkaline Phosphatase 70 (38-126) U/L Total Protein 5.9 L (6.3-8.2) g/dL Albumin 3.6 (3.5-5.0) g/dL Current Medications Generic Name Dose Route Start Last Admin Trade Name Freq PRN Reason Stop Dose Admin Acetaminophen 650 mg 02/03/24 20:28 Acetaminophen Tab 325 Mg Tab PO Q6HR PRN Mild Pain or Fever > 100.5 Hydrocodone Bitart/Acetaminophen 1 each 02/03/24 20:28 Hydrocodone/Apap 5-325mg 1 Each Tab PO Q4HR PRN Moderate Pain (Scale 4 to 6) Apixaban 5 mg 02/03/24 21:00 02/04/24 08:11 Apixaban 5 Mg Tab PO 5 mg BID NISSA Administration Protocol Atorvastatin Calcium 40 mg 02/03/24 21:00 02/03/24 20:58 Atorvastatin 40 Mg Tab PO 40 mg HS NISSA Administration Azithromycin 500 mg 02/04/24 21:00 Azithromycin 500 Mg Tab PO 02/05/24 21:01 HS NISSA Protocol Famotidine 20 mg 02/04/24 21:00 Famotidine 20 Mg/2 Ml Vial IV Q12HR NISSA Furosemide 20 mg 02/03/24 20:31 Furosemide 20 Mg Tab PO DAILY PRN Edema Ceftriaxone Sodium 2 gm/ 50 mls @ 100 mls/hr 02/04/24 21:00 Sodium Chloride IVPB 02/07/24 21:29 HS NISSA Protocol Amiodarone HCl 450 mg/ 250 mls @ 16.667 mls/hr 02/04/24 03:15 02/04/24 10:30 Dextrose/Water IV 02/04/24 21:14 0.5 mg/min .Q15H NISSA 16.667 mls/hr Administration Protocol 0.5 MG/MIN Dextrose/Sodium Chloride 1,000 mls @ 75 mls/hr 02/04/24 09:45 02/04/24 10:33 Dextrose 5%-Ns Iv Soln IV 75 mls/hr .[id number] NISSA Administration Magnesium Sulfate/Dextrose 1 100 mls @ 100 mls/hr 02/04/24 12:45 gm/ IV Solution IVPB 02/04/24 15:44 Q1H NISSA Ibuprofen 400 mg 02/03/24 20:28 Ibuprofen 400 Mg Tab PO Q6HR PRN Mild Pain or Fever > 100.5 Metoprolol Succinate 25 mg 02/04/24 12:30 Metoprolol Succinate (Er) 25 Mg Tab.Er.24h PO DAILY NISSA Miscellaneous Information 1 each 02/03/24 19:00 Pneumonia Protocol Utilized 1 Each Misc PO ONCE PRN Per Protocol Morphine Sulfate 4 mg 02/03/24 20:28 Morphine Sulfate 4 Mg/Ml Syringe IV Q4HR PRN Severe Pain (Scale 7 to 10) Naloxone HCl 0.2 mg 02/03/24 20:28 Naloxone 0.4 Mg/Ml 1 Ml Vial IV Q2M PRN Opioid Reversal Ondansetron HCl 4 mg 02/03/24 20:28 Ondansetron 4 Mg/2 Ml Vial IVP Q8HR PRN Nausea And Vomiting Pantoprazole Sodium 40 mg 02/04/24 09:00 02/04/24 08:11 Pantoprazole 40 Mg/10 Ml Vial IV 40 mg DAILY NISSA Administration Prednisone 20 mg 02/04/24 09:00 02/04/24 08:11 Prednisone 20 Mg Tab PO 20 mg DAILY NISSA Administration Tamsulosin HCl 0.4 mg 02/03/24 21:00 02/03/24 20:58 Tamsulosin 0.4 Mg Cap.Er.24h PO 0.4 mg HS NISSA Administration Intake and Output 02/03/24 02/04/24 02/04/24 22:59 06:59 14:59 Intake Total 11.917 Balance 11.917 Intake: Intake, IV Titration 11.917 Amount Diltiazem 125 mg In 11.917 Sodium Chloride 0.9% 100 ml @ 5 MG/HR 5 mls/hr IV .Q24H [facility] Rx#:[id number] Other: Weight 84.368 kg 02/03/24 16:14 02/03/24 16:14
[2024-02-04] MEDS: MAGNESIUM SULFATE-D5W PMX 1 GM in DEXTROSE/WATER 1 100ML.BAG IVPB SCH (12:50)
--- NOTE | 2024-02-04 13:39 | US ---
EXAMINATION TYPE: US arterial LE single level DATE OF EXAM: 02/04/2024 1:27 PM COMPARISONS: None. CLINICAL INDICATION: Male, 83 years old with history of PAD; PAD TECHNIQUE: Systolic pressures were taken of the upper and lower extremity arteries with ankle-brachia l indices and toe brachial indices calculated bilaterally. History of: Smoker: No Hypertension: No Diabetic: No Hyperlipidemia: No TIA/CVA: No Previous Vascular Surgery: No CAD: No [place]: No Vascular Ulcers: No Claudication: No Gangrene: No FINDINGS: Doppler Waveforms: Right: Multiphasic Left: Multiphasic Brachial Artery systolic pressure: Right: 103 Left: 120 Posterior Tibial artery systolic pressure: Right:140 Left: 133 Dorsalis Pedis artery systolic pressure: Right: 122 Left:119 Ankle-Brachial Indices: Right: 1.17 Left: 1.11 (Vessel hardening > 1.4; Normal 0.9 - 1.4, Moderate 0.7 - 0.9, Severe 0.5-0.7) IMPRESSION: Normal ankle-brachial brachial indices bilaterally. [facility], , 02/04/2024 1:37 PM
--- NOTE | 2024-02-04 16:50 | CA ---
Transthoracic Echo Report Name: Kameron Larson Age: 83 Gender: M : 1940 Exam Date: 02/04/2024 15:13 Exam Location: [facility] Ht (in): 71 Wt (lb): 186 Ordering Physician: Tee Ramires MD ([id number]) Attending/Referring Phys: Agronomy Manager Fouzia Grayson RDCS Procedure CPT: Indications: chf, afib Cardiac Hx: Technical Quality: Fair Contrast 1: Total Dose (mL): Contrast 2: Total Dose (mL): MEASUREMENTS (Male / Female) Normal Values 2D ECHO LV Diastolic Diameter PLAX 5.8 cm 4.2 - 5.9 / 3.9 - 5.3 cm LV Systolic Diameter PLAX 4.9 cm IVS Diastolic Thickness 0.8 cm 0.6 - 1.0 / 0.6 - 0.9 cm LVPW Diastolic Thickness 0.8 cm 0.6 - 1.0 / 0.6 - 0.9 cm LV Relative Wall Thickness 0.3 RV Internal Dim ED PLAX 4.1 cm LA Systolic Diameter LX 4.7 cm 3.0 - 4.0 / 2.7 - 3.8 cm LV Diastolic Volume MOD 4C 108.0 cm??? LV Systolic Volume MOD 4C 63.2 cm??? LV Ejection Fraction MOD 4C 41.4 % LV Cardiac Index MOD 4C 2099.1 cm???/min???m??? LV Diastolic Length 4C 8.6 cm LV Systolic Length 4C 7.2 cm LV Diastolic Volume MOD 2C 102.3 cm??? LV Systolic Volume MOD 2C 61.7 cm??? LV Ejection Fraction MOD 2C 39.7 % LV Cardiac Index MOD 2C 1905.4 cm???/min???m??? LV Diastolic Length 2C 7.7 cm LV Systolic Length 2C 6.9 cm LA Volume 98.0 cm??? 18 - 58 / 22 - 52 cm??? LA Volume Index 47.4 cm???/m??? 16 - 28 cm???/m??? M-MODE Aortic Root Diameter MM 3.4 cm AV Cusp Separation MM 1.8 cm DOPPLER AV Peak Velocity 123.2 cm/s AV Peak Gradient 6.1 mmHg MV Area PHT 3.6 cm??? MV Deceleration Time 149.0 ms TR Peak Velocity 236.2 cm/s TR Peak Gradient 22.3 mmHg Right Ventricular Systolic Press 27.3 mmHg FINDINGS Left Ventricle Left ventricular ejection fraction is estimated at 35-40 %. Left ventricular cavity size normal. Left ventricular wall thickness normal. Moderately reduced global left ventricular systolic function. Right Ventricle Severe right ventricular dilatation. Right ventricular systolic pressure within normal limits. Right Atrium Moderate right atrial dilatation. No right atrial thrombus or mass seen. Left Atrium Mildly increased left atrial diameter. Severely increased left atrial volume. Mildly increased left atrial area. Mitral Valve Structurally normal mitral valve. Mild mitral regurgitation. Aortic Valve Trileaflet aortic valve. No aortic valve stenosis or regurgitation. Tricuspid Valve Structurally normal tricuspid valve. Mild tricuspid regurgitation. Pulmonic Valve Structurally normal pulmonic valve. No pulmonic regurgitation. Pericardium No pericardial effusion. Aorta Normal size aortic root and proximal ascending aorta. CONCLUSIONS Moderate LV systolic dysfunction with an ejection fraction of 35-40% Dilated left atrium Mild mitral and tricuspid regurgitation Previewed by: Dr. Yovani Lee MD (Electronically Signed) Final Date: 04 February 2024 16:49
[2024-02-04 19:14] LABS: Chol/HDL Ratio 2.37 Ratio; LDL Cholesterol,Calculated 57.9 mg/dL (0.0-131.0)
[2024-02-04] MEDS: AZITHROMYCIN 500 MG TAB PO SCH (20:04)
[2024-02-04] MEDS: FAMOTIDINE 20 MG/2 ML VIAL IV SCH (20:05)
--- NOTE | 2024-02-04 23:16 | P.CONS ---
History of Present Illness - Reason for Consult Consult date: 02/04/24 Infection of unknown etiology Requesting physician: Claudia Ramos - Chief Complaint Nausea vomiting x 3 days - History of Present Illness Patient is a 83-year-old male with a past medical history significant for atrial fibrillation coronary artery disease presenting to the hospital for evaluation of nausea and vomiting patient symptom has been going on for about 2 to 3 days patient mention has not been able to keep anything down at the moment he drinks water it comes out patient denies having any abdominal pain denies having any significant diarrhea or blood or mucus in the stool and also started having increasing shortness of breath for the patient presented to hospital patient did not recall having any fever at home however the patient was febrile with a temperature of 100.6 F in the ER patient was tachycardic but not hypotensive or hypoxic and no need for supplemental oxygen patient did have a white count of 8.0 creatinine 0.81 electrolytes has been normal liver enzymes normal CRP is 2.5 urine has been negative liver isms are normal influenza RSV COVID testing has been negative patient did have a chest x-ray patchy left base opacity suggestive of atelectasis versus early developing pneumonia patient did have abdominal pelvis CT did not show any acute abnormality patient was started on Rocephin and Zithromax infectious was consulted concerning for infection of uncertain cause Review of Systems Positive point and negatives has been mentioned in the HPI, complete review of systems was performed and all other systems are negative Past Medical History Past Medical History: Atrial Fibrillation History of Any Multi-Drug Resistant Organisms: None Reported Past Surgical History: Heart Catheterization With Stent Additional Past Surgical History / Comment(s): heart cath 2016 Past Psychological History: No Psychological Hx Reported Smoking Status: Former smoker Past Alcohol Use History: None Reported Past Drug Use History: None Reported Medications and Allergies Home Medications Medication Instructions Recorded Confirmed Type Apixaban [Eliquis] 5 mg PO BID 02/03/24 02/03/24 History Atorvastatin [Lipitor] 40 mg PO HS 02/03/24 02/03/24 History Furosemide [Lasix] 20 mg PO DAILY PRN 02/03/24 02/03/24 History Losartan [Cozaar] 25 mg PO DAILY 02/03/24 02/03/24 History Metoprolol Succinate (ER) [Toprol 12.5 mg PO DAILY 02/03/24 02/03/24 History Xl] Tamsulosin [Flomax] 0.4 mg PO HS 02/03/24 02/03/24 History predniSONE 20 mg PO DAILY 02/03/24 02/03/24 History Allergies Allergy/AdvReac Type Severity Reaction Status Date / Time itraconazole [From Sporanox] Allergy Rash/Hives Verified 02/03/24 19:35 Physical Exam Vitals: Vital Signs Temp Pulse Resp BP Pulse Ox 02/04/24 06:30 107 H 18 91/66 98 02/04/24 06:15 113 H 16 85/49 98 02/04/24 06:00 105 H 16 84/55 99 02/04/24 05:45 102 H 18 98/55 99 02/04/24 05:30 123 H 16 100/48 99 02/04/24 05:15 114 H 16 90/47 99 02/04/24 05:00 104 H 16 78/65 98 02/04/24 04:45 120 H 16 94/60 98 02/04/24 04:30 113 H 18 111/80 99 02/04/24 04:10 121 H 18 103/78 98 02/04/24 04:00 142 H 18 86/67 98 02/04/24 03:50 98.1 F 113 H 18 97/63 98 02/04/24 03:30 146 H 18 103/58 98 02/04/24 03:15 172 H 18 86/59 95 02/04/24 02:45 137 H 18 112/72 98 02/04/24 02:30 134 H 20 101/76 99 02/04/24 02:15 131 H 20 96/83 98 02/04/24 02:00 131 H 18 90/62 99 02/04/24 01:45 116 H 20 104/60 98 02/04/24 01:30 118 H 21 96/63 98 02/04/24 01:15 126 H 18 112/95 91 L 02/04/24 01:00 101 H 18 82/62 95 02/04/24 00:45 98 18 89/59 94 L 02/04/24 00:30 106 H 18 81/58 95 02/04/24 00:15 123 H 16 88/51 93 L 02/04/24 00:00 105 H 18 73/50 98 02/03/24 23:45 110 H 16 82/54 95 02/03/24 23:40 103 H 18 79/50 94 L 02/03/24 23:30 108 H 18 84/52 95 02/03/24 23:20 110 H 16 73/49 95 02/03/24 23:10 98.2 F 109 H 18 86/44 94 L 02/03/24 23:00 113 H 18 77/49 95 02/03/24 22:50 121 H 18 71/49 95 02/03/24 22:40 113 H 18 88/48 94 L 02/03/24 22:30 124 H 18 86/52 95 02/03/24 22:20 106 H 18 96/79 96 02/03/24 22:10 112 H 18 84/52 96 02/03/24 22:00 112 H 18 81/51 96 02/03/24 21:40 111 H 18 116/94 95 02/03/24 21:30 102 H 16 86/59 93 L 02/03/24 21:20 106 H 18 82/56 96 02/03/24 21:10 99 16 87/56 97 02/03/24 21:00 117 H 18 76/57 96 02/03/24 20:40 93 18 88/52 96 02/03/24 20:30 120 H 18 97/60 94 L 02/03/24 20:00 100.1 F H 110 H 18 90/72 95 02/03/24 18:56 100.6 F H 02/03/24 18:13 121 H 24 120/67 96 02/03/24 17:36 100.6 F H 118 H 17 92/76 94 L 02/03/24 15:46 98.4 F 64 16 115/68 97 Intake and Output 02/03/24 02/04/24 02/04/24 22:59 06:59 14:59 Intake Total 11.917 Balance 11.917 Intake: Intake, IV Titration 11.917 Amount Diltiazem 125 mg In 11.917 Sodium Chloride 0.9% 100 ml @ 5 MG/HR 5 mls/hr IV .Q24H [facility] Rx#:[id number] Other: Weight 84.368 kg GENERAL DESCRIPTION: Elderly male lying in bed, no distress. No tachypnea or accessory muscle of respiration use. HEENT: Shows Pallor , no scleral icterus. Oral mucous membrane is dry. No pharyngeal erythema or thrush NECK: Trachea central, no thyromegaly. LUNGS: Unlabored breathing. Decreased breath sound at the base HEART: S1, S2, regular rate and rhythm. No loud murmur ABDOMEN: Soft, no tenderness , guarding or rigidity, no organomegaly EXTREMITIES: No edema of feet. SKIN: No rash, no masses palpable. NEUROLOGICAL: The patient is awake, alert, oriented x3, mood and affect normal. Results CBC & Chem 7: 02/03/24 16:14 02/03/24 16:14 Labs: Abnormal Lab Results - Last 24 Hours (Table) 02/03/24 02/03/24 02/03/24 Range/Units 16:14 16:14 19:15 Plt Count 136 L (150-450) k/uL Lymphocytes # 0.4 L (1.0-4.8) k/uL Sodium 135 L (137-145) mmol/L BUN 35 H (9-20) mg/dL Glucose 115 H (74-99) mg/dL Calcium 8.3 L (8.4-10.2) mg/dL C-Reactive Protein 2.5 H (<1.0) mg/dL Total Protein 5.9 L (6.3-8.2) g/dL Urine Blood (Negative) Urine RBC (0-5) /hpf Urine Bacteria (None) /hpf Urine Mucus (None) /hpf Urine Yeast (Budding) (None) /hpf 02/03/24 Range/Units 20:00 Plt Count (150-450) k/uL Lymphocytes # (1.0-4.8) k/uL Sodium (137-145) mmol/L BUN (9-20) mg/dL Glucose (74-99) mg/dL Calcium (8.4-10.2) mg/dL C-Reactive Protein (<1.0) mg/dL Total Protein (6.3-8.2) g/dL Urine Blood Moderate H (Negative) Urine RBC 12 H (0-5) /hpf Urine Bacteria Rare H (None) /hpf Urine Mucus Few H (None) /hpf Urine Yeast (Budding) Rare H (None) /hpf Assessment and Plan (1) Fever Current Visit: Yes Status: Acute Code(s): R50.9 - FEVER, UNSPECIFIED SNOM ED Code(s): 365181161 Plan: 1patient presented to hospital acute nausea and vomiting unable to keep anything down subsequent evaluating shortness of breath with patchy opacity seen in the left base concerning for possible pneumonia question of aspiration, patient did have a low-grade fever abdominal CT did not show any acute abnormality UA did not show any pyuria evidence of any cellulitis or joint swelling 2-we will check ultrasound of the liver and the gallbladder area 3-try to obtain a sputum 4-continue with Rocephin Zithromax while waiting for the workup to be completed We will follow on clinical condition and cultures to further adjust medication if needed Thank you for this consultation we will follow the patient along with you Dictation was produced using [employer] dictation software. please excuse any grammatical, word or spelling errors. Time with Patient: Greater than 30
[2024-02-05] MEDS: AMIODARONE 450 MG in DEXTROSE 5% IN WATER 250 ML IV SCH (03:11)
[2024-02-05 08:15] LABS: Basophils % (A) 0 %; Eosinophils # (A) 0.1 k/uL (0-0.7); Eosinophils % (A) 2 %; HGB 12.1 gm/dL (13.0-17.5); Lymphocytes # (A) 0.5 k/uL (1.0-4.8); Lymphocytes % (A) 10 %; MCH 32.6 pg (25.0-35.0); MCHC 32.6 g/dL (31.0-37.0); MCV 100.2 fL (80.0-100.0); Monocytes # (A) 0.4 k/uL (0-1.0); Monocytes % (A) 7 %; Neutrophils # (A) 4.1 k/uL (1.3-7.7); Neutrophils % (A) 80 %; Platelet Count 105 k/uL (150-450); RDW 13.4 % (11.5-15.5); WBC 5.1 k/uL (3.8-10.6)
[2024-02-05 08:28] LABS: African American GFR (CKD) >90 (>60 ml/min/1.73 sqM); Anion Gap 2 mmol/L; Blood Urea Nitrogen 20 mg/dL (9-20); Calcium 6.8 mg/dL (8.4-10.2); Carbon Dioxide 26 mmol/L (22-30); Chloride 109 mmol/L (98-107); Glucose 98 mg/dL (74-99); Magnesium 2.4 mg/dL (1.6-2.3); Non-African American GFR(CKD) 84 (>60 ml/min/1.73 sqM); Potassium 3.5 mmol/L (3.5-5.1); Sodium 137 mmol/L (137-145)
--- NOTE | 2024-02-05 10:39 | US ---
EXAMINATION TYPE: US abdomen complete DATE OF EXAM: 02/05/2024 COMPARISON: CT 02/03/2024 CLINICAL INDICATION: Male, 83 years old with history of Fever and vomiting; Fever and vomiting. TECHNIQUE: Grayscale and color Doppler imaging of the abdomen was performed. FINDINGS: EXAM MEASUREMENTS: Liver Length: 13.9 cm Gallbladder Wall: 0.30 cm CBD: 0.55 cm, color Doppler imaging was utilized to isolate the common bile duct for measurement. Spleen: 8.4 cm Right Kidney: 12.0 x 5.7 x 6.0 cm Left Kidney: 11.9 x 5.0 x 5.5 cm TANK TRUCK OPERATOR NOTES: *Exam is limited due to gas. Pancreas: Very limited due to gas. Only portions of the pancreatic neck are seen. Liver: Most images taken intercostal. Visualized portions show homogeneous appearance. Gallbladder: Limited due to gas. Gallbladder measures 4.9 cm transverse. No wall thickening or shadow ing stones. Evidence for sonographic Meyers's sign: No CBD: wnl Spleen: Limited visibility, but otherwise appears wnl Right Kidney: Multiple complex areas and simple cysts are seen. *Largest complex area seen laterally measures: 3.0 x 1.8 x 2.4 cm. Internal echoes could be artifact or debris. *Largest cyst seen inferiorly measures: 4.7 x 3.2 x 3.5 cm. *Hyperechoic focus seen at mid: 0.3 x 0.3 x 0.4 cm. Left Kidney: *Complex area seen upper: 1.8 x 1.7 x 1.8 cm. Internal echoes could represent artifact read. Solid mass not excluded at this time. *Hyperechoic focus seen at mid: 0.4 x 0.4 x 0.4 cm. Upper IVC: wnl Abd Aorta: Proximal segment appears ectatic at 2.8 cm. Portion of distal aorta was obscured. Iliac ar teries were obscured. IMPRESSION: 1. Ultrasound exam limited due to bowel gas. 2. The gallbladder is mildly hydropic but shows no ancillary imaging findings of acute cholecystitis. Probably relating to fasting state. 3. Multiple bilateral renal cysts, along with some complex lesions in either kidney measuring up to 4 .7 cm. Possible debris-filled cysts. Solid mass is not excluded at this time. Given the appearance of these lesions on recent CT, recommend three-month follow-up CT to exclude a small RCC. [facility], , 02/05/2024 10:37 AM
[2024-02-05] MEDS: DIGOXIN 250 MCG TAB PO ONE (13:31)
--- NOTE | 2024-02-05 14:50 | P.PN ---
Subjective HISTORY OF PRESENT ILLNESS: 02/04/24-Per Dr. Ramires 83-year-old male with past medical history of atrial fibrillation on anticoagulation with Eliquis. He is known to Dr. Sterling in [facility]. He also has prior history of CAD status post PCI in 2017. He has longstanding chronic atrial fibrillation. He is not got an ablation or cardioversion procedure done in the past. This time he presented to the hospital because of poor appetite, feeling weak for 3 to 4 days increased nausea vomiting. He was also noticed to have increased heart rate and low blood pressure and subjective fevers. On admission temp was 100.6 , heart rate 107, BP 91/72, EKG shows atrial fibrillation with RVR heart rate 119, frequent PVCs Admission labs: NT-proBNP 1800, initial Trope negative, magnesium 1.7 Admission ECG shows A-fib RVR heart rate 119 bpm, PVCs. Telemetry 02/04/2024, A-fib heart rate 104 bpm, intermittent PVCs 02/05/2024 Patient examined this morning the bedside. Patient currently denies chest pain or pressure. He denies shortness of breath. He remains in atrial fibrillation with a heart in the 80s. Blood pressure stable. Most recent blood pressure 117/72. He remains on IV amiodarone. Echocardiogram completed revealing ejection fraction 35 to 40%, severe right ventricular dilatation, mild mitral and tricuspid regurgitation PHYSICAL EXAM: VITAL SIGNS: Reviewed. GENERAL: Well-developed in no acute distress. NECK: Supple. No JVD or thyromegaly LUNGS: Respirations even and unlabored. Lungs essentially clear to auscultation bilaterally. HEART: Irregular rate and rhythm. S1 and S2 heard. EXTREMITIES: Normal range of motion. No clubbing or cyanosis. Peripheral pulses intact. Bilateral lower extremity edema ASSESSMENT: Permanent atrial fibrillation with RVR, currently rate controlled Coronary artery disease with previous PCI, 2017 Ischemic cardiomyopathy, 35 to 40% Suspected peripheral arterial disease Former nicotine dependence Hypomagnesemia Nausea and vomiting Hypotension, likely secondary to hypovolemia from poor oral intake, resolved Generalized weakness Urinary tract infection PLAN: Continue oral anticoagulation with Eliquis Discontinue IV amiodarone. No oral amiodarone at this time Begin digoxin 250 mcg today followed by 125 mcg starting tomorrow Add losartan 12.5 mg daily Add Farxiga 10 mg daily Add Aldactone 12.5 mg daily Continue telemetry monitoring Patient to follow-up postdischarge with his primary watch leader, Dr. Sterling in [place] Further recommendations pending patient course Nurse practitioner note has been reviewed by physician. Signing provider agrees with the documented findings, assessment, and plan of care documented by LANDSCAPE SPECIALIST as a scribe. Objective - Vital Signs Vital signs: Vital Signs Temp 97.5 F L 02/05/24 11:50 Pulse 87 02/05/24 11:50 Resp 14 02/05/24 11:50 BP 117/72 02/05/24 11:50 Pulse Ox 96 02/05/24 11:50 FiO2 Intake & Output 02/04/24 02/05/24 02/05/24 18:59 06:59 18:59 Intake Total 222 20 240 Output Total 0 300 Balance 222 20 -60 Weight 84.368 kg 83.7 kg Intake: IV 20 Invasive Line 2 20 Oral 222 240 Output: Urine 0 300 Other: Voiding Method Urinal # Voids 1 - Labs CBC & Chem 7: 02/05/24 06:57 02/05/24 06:57 Labs: Abnormal Lab Results - Last 24 Hours (Table) 02/04/24 02/05/24 02/05/24 Range/Units 12:58 06:57 06:57 RBC 3.70 L (4.30-5.90) m/uL Hgb 12.1 L (13.0-17.5) gm/dL Hct 37.0 L (39.0-53.0) % MCV 100.2 H (80.0-100.0) fL Plt Count 105 L (150-450) k/uL Lymphocytes # 0.5 L (1.0-4.8) k/uL Chloride 109 H (98-107) mmol/L Hemoglobin A1c 6.2 H (<=6.0) % Calcium 6.8 L (8.4-10.2) mg/dL Magnesium 2.4 H (1.6-2.3) mg/dL Microbiology - Last 24 Hours (Table) 02/03/24 20:00 Urine Culture - Final Urine,Clean Catch 02/03/24 19:15 Blood Culture - Preliminary Blood
--- NOTE | 2024-02-05 15:12 | P.PN ---
Subjective Progress Note Date: 02/05/24 Principal diagnosis: Reason for follow-up is fever question of pneumonia Patient is a 83-year-old male with a past medical history significant for atrial fibrillation coronary artery disease presenting to the hospital for evaluation of nausea and vomiting, unable to keep anything down did have a low- grade fever chest x-ray with patchy left base opacity concerning for possible pneumonia. On today's evaluation that is 02/05/2024, the patient did have resolution of his fever and his afebrile today, the patient is on room air and breathing comfortably, the Pt denies having any chest pain or any worsening cough, the patient denies having any abdominal pain and resolution of his nausea and vomiting. Patient white count is 5.1, creatinine 0.76 cultures currently pending Objective - Vital Signs Vital signs: Vital Signs Temp 97.5 F L 02/05/24 11:50 Pulse 87 02/05/24 11:50 Resp 14 02/05/24 11:50 BP 117/72 02/05/24 11:50 Pulse Ox 96 02/05/24 11:50 FiO2 Intake & Output 02/04/24 02/05/24 02/05/24 18:59 06:59 18:59 Intake Total 222 20 240 Output Total 0 300 Balance 222 20 -60 Weight 84.368 kg 83.7 kg Intake: IV 20 Invasive Line 2 20 Oral 222 240 Output: Urine 0 300 Other: Voiding Method Urinal # Voids 1 - Exam GENERAL DESCRIPTION: An elderly male lying in bed in no distress RESPIRATORY SYSTEM: Unlabored breathing , decreased breath sounds at bases HEART: S1 S2 regular rate and rhythm , ABDOMEN: Soft , no tenderness EXTREMITIES: No edema feet - Labs CBC & Chem 7: 02/05/24 06:57 02/05/24 06:57 Labs: Abnormal Lab Results - Last 24 Hours (Table) 02/04/24 02/05/24 02/05/24 Range/Units 12:58 06:57 06:57 RBC 3.70 L (4.30-5.90) m/uL Hgb 12.1 L (13.0-17.5) gm/dL Hct 37.0 L (39.0-53.0) % MCV 100.2 H (80.0-100.0) fL Plt Count 105 L (150-450) k/uL Lymphocytes # 0.5 L (1.0-4.8) k/uL Chloride 109 H (98-107) mmol/L Hemoglobin A1c 6.2 H (<=6.0) % Calcium 6.8 L (8.4-10.2) mg/dL Magnesium 2.4 H (1.6-2.3) mg/dL Microbiology - Last 24 Hours (Table) 02/03/24 20:00 Urine Culture - Final Urine,Clean Catch 02/03/24 19:15 Blood Culture - Preliminary Blood Assessment and Plan (1) Fever Current Visit: Yes Status: Acute Code(s): R50.9 - FEVER, UNSPECIFIED SNOMED Code(s): 906211060 Plan: 1patient presented to hospital acute nausea and vomiting unable to keep anything down subsequent evaluating shortness of breath with patchy opacity seen in the left base concerning for possible pneumonia question of aspiration, patient did have a low-grade fever abdominal CT did not show any acute abnormality UA did not show any pyuria evidence of any cellulitis or joint swelling 2-ultrasound of the liver and the gallbladder area did not show any acute abnormality 3-try to obtain a sputum 4-patient mention improvement in symptoms continue Rocephin Zithromax while waiting for the workup to be completed Dictation was produced using [employer] dictation software. please excuse any grammatical, word or spelling errors. Time with Patient: Less than 30
[2024-02-05] MEDS ORDERED: AMIODARONE 200 MG TAB PO SCH (16:00)
--- NOTE | 2024-02-05 17:31 | P.GSCN ---
History of Present Illness Consult date: 02/05/24 Reason for Consult: Left renal mass History of present illness: This is an 83-year-old male with multiple comorbidities admitted to the hospital with dehydration. Urology is consulted for incidental finding of left-sided renal mass. He underwent a CT abdomen pelvis that showed evidence of a 1.2 cm left-sided partially exophytic renal mass, this was not previously seen. He denies any flank pain, gross hematuria. No previously of kidney stones or renal surgeries. No known family history of malignancies. Review of Systems - Constitutional Denies fever, Denies weight loss - Respiratory Denies cough, Denies 7 - Gastrointestinal Reports abdominal pain, Reports nausea, Reports vomiting - Genitourinary Denies dysuria, Denies hematuria Past Medical History Past Medical History: Atrial Fibrillation History of Any Multi-Drug Resistant Organisms: None Reported Past Surgical History: Heart Catheterization With Stent Additional Past Surgical History / Comment(s): heart cath 2016 Date of Last Stent Placement:: 2016 Past Psychological History: No Psychological Hx Reported Smoking Status: Former smoker Past Alcohol Use History: None Reported Past Drug Use History: None Reported Medications and Allergies Home Medications Medication Instructions Recorded Confirmed Type Apixaban [Eliquis] 5 mg PO BID 02/03/24 02/03/24 History Atorvastatin [Lipitor] 40 mg PO HS 02/03/24 02/03/24 History Furosemide [Lasix] 20 mg PO DAILY PRN 02/03/24 02/03/24 History Losartan [Cozaar] 25 mg PO DAILY 02/03/24 02/03/24 History Metoprolol Succinate (ER) [Toprol 12.5 mg PO DAILY 02/03/24 02/03/24 History Xl] Tamsulosin [Flomax] 0.4 mg PO HS 02/03/24 02/03/24 History predniSONE 20 mg PO DAILY 02/03/24 02/03/24 History Allergies Allergy/AdvReac Type Severity Reaction Status Date / Time itraconazole [From Sporanox] Allergy Rash/Hives Verified 02/03/24 19:35 Surgical - Exam Vital Signs Temp Pulse Resp BP Pulse Ox 98.4 F 64 16 115/68 97 02/03/24 15:46 02/03/24 15:46 02/03/24 15:46 02/03/24 15:46 02/03/24 15:46 - General no distress, no pain - Eyes normal ocular movement, no pale - ENT normal nares, normal mucosa - Respiratory normal expansion, normal respiratory effort - Abdomen Abdomen: soft, non tender Results - Labs 02/05/24 06:57 02/05/24 06:57 Abnormal Lab Results - Last 24 Hours (Table) 02/05/24 02/05/24 Range/Units 06:57 06:57 RBC 3.70 L (4.30-5.90) m/uL Hgb 12.1 L (13.0-17.5) gm/dL Hct 37.0 L (39.0-53.0) % MCV 100.2 H (80.0-100.0) fL Plt Count 105 L (150-450) k/uL Lymphocytes # 0.5 L (1.0-4.8) k/uL Chloride 109 H (98-107) mmol/L Calcium 6.8 L (8.4-10.2) mg/dL Magnesium 2.4 H (1.6-2.3) mg/dL Microbiology - Last 24 Hours (Table) 02/03/24 20:00 Urine Culture - Final Urine,Clean Catch 02/03/24 19:15 Blood Culture - Preliminary Blood Diabetes panel 02/04/24 02/05/24 Range/Units 12:58 06:57 Sodium 137 (137-145) mmol/L Potassium 3.5 (3.5-5.1) mmol/L Chloride 109 H (98-107) mmol/L Carbon Dioxide 26 (22-30) mmol/L BUN 20 (9-20) mg/dL Creatinine 0.76 (0.66-1.25) mg/dL Glucose 98 (74-99) mg/dL Calcium 6.8 L (8.4-10.2) mg/dL Triglycerides 104.00 (0.00-149.00) mg/dL HDL Cholesterol 57.30 (40.00-60.00) mg/dL Calcium panel 02/05/24 Range/Units 06:57 Calcium 6.8 L (8.4-10.2) mg/dL Pituitary panel 02/05/24 Range/Units 06:57 Sodium 137 (137-145) mmol/L Potassium 3.5 (3.5-5.1) mmol/L Chloride 109 H (98-107) mmol/L Carbon Dioxide 26 (22-30) mmol/L BUN 20 (9-20) mg/dL Creatinine 0.76 (0.66-1.25) mg/dL Glucose 98 (74-99) mg/dL Calcium 6.8 L (8.4-10.2) mg/dL Adrenal panel 02/05/24 Range/Units 06:57 Sodium 137 (137-145) mmol/L Potassium 3.5 (3.5-5.1) mmol/L Chloride 109 H (98-107) mmol/L Carbon Dioxide 26 (22-30) mmol/L BUN 20 (9-20) mg/dL Creatinine 0.76 (0.66-1.25) mg/dL Glucose 98 (74-99) mg/dL Calcium 6.8 L (8.4-10.2) mg/dL Assessment and Plan Assessment: 83-year-old male with incidental finding of a 1.2 cm left-sided renal mass. He is asymptomatic from it. I reviewed the CT it is concerning for solid mass, but given patient's age and comorbidities he is a poor surgical candidate, at this point given the lack of symptoms and the fairly small lesion I discussed with him I recommend continued surveillance, discussed if there is significant growth of the lesion in the future then we can consider cryoablation, but at this point no further intervention from urology, I do recommend him following up in our of [facility] in 6 months to set up follow-up imaging
--- NOTE | 2024-02-06 00:49 | P.PN ---
Subjective This is a pleasant 83 years old male with past medical history of atrial fibrillation on Eliquis at home. Presents because of vomiting for 3 days duration, he said he has been vomiting frequently for 2 days he could not eat and drink, yesterday he tried to drink and right away he threw up However patient has no abdominal pain, yesterday had normal bowel movement no urinary complaints like dysuria or change in frequency, no chest pain or dyspne a, he has mild headache but no dizziness weakness or numbness He quit smoking more than 20 years ago no alcohol or illicit drugs He complains from chronic lower extremity and ankle neuropathy at baseline he uses a walker. Patient also denies abdominal pain or back pain On admission patient has been having a fever of 100.6 Blood pressure borderline 91/72, heart rate 107 proBNP is elevated 1880 Urine analysis showing RBCs about 12 with moderate blood EKG showing A-fib with a rate of 116 Chest x-ray showing left lower lobe opacity, I reviewed the chest x-ray by myself and agree. Most likely related to pneumonia CT of the abdomen and pelvis is negative for acute process but showing age-indeterminate mild to moderate compression fracture of T12 and L1, multiple bladder diverticular disease and 12 mm left kidney lesion needs outpatient MRI with IV contrast per radiolog 02/05 Patient with no nausea vomiting No abdominal pain or tenderness No bowel movement yesterday No much respiratory symptoms however he had fever on admission and chest x-ray is suspicious for left lower lobe infiltrate, currently kept on ceftriaxone and Zithromax. Differential diagnosis is atelectasis of the lung Patient also with A-fib kept on Eliquis while amiodarone was discontinued. Digoxin added and other diuretics per cardiology team Neurology for left kidney mass recommended follow-up as an outpatient and no surgical intervention currently. Review of systems CONSTITUTIONAL: No fever, no malaise, no fatigue. HEENT: No recent visual problems or hearing problems. Denied any sore throat. CARDIOVASCULAR: No orthopnea, PND, no palpitations, no syncope. HEMATOLOGICAL: Denies any bleeding or petechiae. GENITOURINARY: Denies any burning micturition, frequency, or urgency. MUSCULOSKELETAL/RHEUMATOLOGICAL: Denies any joint pain, swelling, or any muscle pain. ENDOCRINE: Denies any polyuria or polydipsia. Active Medications Generic Name Dose Route Start Last Admin Trade Name Freq PRN Reason Stop Dose Admin Acetaminophen 650 mg 02/03/24 20:28 Acetaminophen Tab 325 Mg Tab PO Q6HR PRN Mild Pain or Fever > 100.5 Hydrocodone Bitart/Acetaminophen 1 each 02/03/24 20:28 Hydrocodone/Apap 5-325mg 1 Each Tab PO Q4HR PRN Moderate Pain (Scale 4 to 6) Apixaban 5 mg 02/03/24 21:00 02/05/24 20:21 Apixaban 5 Mg Tab PO 5 mg BID NISSA Administration Protocol Atorvastatin Calcium 40 mg 02/03/24 21:00 02/05/24 20:21 Atorvastatin 40 Mg Tab PO 40 mg HS NISSA Administration Dapagliflozin 10 mg 02/06/24 09:00 Dapagliflozin Propanediol 10 Mg Tablet PO DAILY NISSA Digoxin 125 mcg 02/06/24 09:00 Digoxin 125 Mcg Tab PO DAILY NISSA Famotidine 20 mg 02/04/24 21:00 02/05/24 20:25 Famotidine 20 Mg/2 Ml Vial IV 20 mg Q12HR NISSA Administration Furosemide 20 mg 02/03/24 20:31 Furosemide 20 Mg Tab PO DAILY PRN Edema Ceftriaxone Sodium 2 gm/ 50 mls @ 100 mls/hr 02/04/24 21:00 02/05/24 20:21 Sodium Chloride IVPB 02/07/24 21:29 100 mls/hr HS NISSA Administration Protocol Ibuprofen 400 mg 02/03/24 20:28 Ibuprofen 400 Mg Tab PO Q6HR PRN Mild Pain or Fever > 100.5 Losartan Potassium 12.5 mg 02/06/24 09:00 Losartan 25 Mg Tab PO DAILY [facility] Metoprolol Succinate 25 mg 02/04/24 12:30 02/05/24 08:29 Metoprolol Succinate (Er) 25 Mg Tab.Er.24h PO 25 mg DAILY NISSA Administration Miscellaneous Information 1 each 02/03/24 19:00 Pneumonia Protocol Utilized 1 Each Misc PO ONCE PRN Per Protocol Morphine Sulfate 4 mg 02/03/24 20:28 Morphine Sulfate 4 Mg/Ml Syringe IV Q4HR PRN Severe Pain (Scale 7 to 10) Naloxone HCl 0.2 mg 02/03/24 20:28 Naloxone 0.4 Mg/Ml 1 Ml Vial IV Q2M PRN Opioid Reversal Ondansetron HCl 4 mg 02/03/24 20:28 Ondansetron 4 Mg/2 Ml Vial IVP Q8HR PRN Nausea And Vomiting Pantoprazole Sodium 40 mg 02/04/24 09:00 02/05/24 08:30 Pantoprazole 40 Mg/10 Ml Vial IV 40 mg DAILY NISSA Administration Prednisone 20 mg 02/04/24 09:00 02/05/24 08:29 Prednisone 20 Mg Tab PO 20 mg DAILY NISSA Administration Spironolactone 12.5 mg 02/06/24 09:00 Spironolactone 25 Mg Tab PO DAILY NISSA Tamsulosin HCl 0.4 mg 02/03/24 21:00 02/05/24 20:21 Tamsulosin 0.4 Mg Cap.Er.24h PO 0.4 mg HS NISSA Administration Objective - Vital Signs Vital signs: Vital Signs Temp 98.0 F 02/05/24 20:00 Pulse 77 02/05/24 20:00 Resp 14 02/05/24 20:00 BP 101/65 02/05/24 20:00 Pulse Ox 96 02/05/24 20:00 FiO2 Intake & Output 02/05/24 02/05/24 02/06/24 06:59 18:59 06:59 Intake Total 20 462 Output Total 0 300 100 Balance 20 162 -100 Weight 83.7 kg Intake: IV 20 Invasive Line 2 20 Oral 462 Output: Urine 0 300 100 Other: Voiding Method Urinal Urinal Urinal # Voids 1 - Exam GENERAL: The patient is alert and oriented x3, not in any acute distress. Well developed, well nourished. HEENT: Pupils are round and equally reacting to light. EOMI. No scleral icterus. No conjunctival pallor. Normocephalic, atraumatic. No pharyngeal erythema. No thyromegaly. CARDIOVASCULAR: S1 and S2 present. No murmurs, rubs, or gallops. PULMONARY: Chest is clear to auscultation, no wheezing , no crackles. ABDOMEN: Soft, nontender, nondistended, normoactive bowel sounds. No palpable organomegaly. MUSCULOSKELETAL: No joint swelling or deformity. EXTREMITIES: No cyanosis, clubbing, or pedal edema. NEUROLOGICAL: Gross neurological examination did not reveal any focal deficits. SKIN: No rashes. no petechiae. - Labs CBC & Chem 7: 02/05/24 06:57 02/05/24 06:57 Labs: Abnormal Lab Results - Last 24 Hours (Table) 02/05/24 02/05/24 Range/Units 06:57 06:57 RBC 3.70 L (4.30-5.90) m/uL Hgb 12.1 L (13.0-17.5) gm/dL Hct 37.0 L (39.0-53.0) % MCV 100.2 H (80.0-100.0) fL Plt Count 105 L (150-450) k/uL Lymphocytes # 0.5 L (1.0-4.8) k/uL Chloride 109 H (98-107) mmol/L Calcium 6.8 L (8.4-10.2) mg/dL Magnesium 2.4 H (1.6-2.3) mg/dL Microbiology - Last 24 Hours (Table) 02/03/24 20:00 Urine Culture - Final Urine,Clean Catch 02/03/24 19:15 Blood Culture - Preliminary Blood Assessment and Plan Assessment: Left lower lobe pneumonia Recurrent nausea vomiting and dehydration x 3 days A-fib and RVR, present on admission Mild hematuria, microscopic with multiple bladder diverticula and left kidney lesion 112 mm Chronic compression fracture of T12-L1 Plan: Patient currently off IV fluids Continue ceftriaxone and Zithromax Follow-up sputum culture and blood culture Infectious disease consult Cardiology team consult Continue with Eliquis urology consult for left kidney lesion, recommend outpatient follow-up Labs and medication were reviewed.. Continue same treatment. Continue with symptomatic treatment. Resume home medication. Monitor labs and vitals. DVT and GI prophylaxis. Further recommendations as per clinical course of the patient DVT prophylaxis: Eliquis GI Prophylaxis: Pepcid PT/OT: Pending Prognosis is guarded
[2024-02-06] MEDS: LOSARTAN 25 MG TAB PO SCH (09:59)
[2024-02-06] MEDS: SPIRONOLACTONE 25 MG TAB PO SCH (10:00)
[2024-02-06] MEDS: DIGOXIN 125 MCG TAB PO SCH (10:00)
[2024-02-06] MEDS: DAPAGLIFLOZIN PROPANEDIOL 10 MG TABLET PO SCH (10:00)
--- NOTE | 2024-02-06 12:23 | P.PN ---
Subjective HISTORY OF PRESENT ILLNESS: 02/04/24-Per Dr. Ramires 83-year-old male with past medical history of atrial fibrillation on anticoagulation with Eliquis. He is known to Dr. Sterling in [facility]. He also has prior history of CAD status post PCI in 2017. He has longstanding chronic atrial fibrillation. He is not got an ablation or cardioversion procedure done in the past. This time he presented to the hospital because of poor appetite, feeling weak for 3 to 4 days increased nausea vomiting. He was also noticed to have increased heart rate and low blood pressure and subjective fevers. On admission temp was 100.6 , heart rate 107, BP 91/72, EKG shows atrial fibrillation with RVR heart rate 119, frequent PVCs Admission labs: NT-proBNP 1800, initial Trope negative, magnesium 1.7 Admission ECG shows A-fib RVR heart rate 119 bpm, PVCs. Telemetry 02/04/2024, A-fib heart rate 104 bpm, intermittent PVCs 02/05/2024 Patient examined this morning the bedside. Patient currently denies chest pain or pressure. He denies shortness of breath. He remains in atrial fibrillation with a heart in the 80s. Blood pressure stable. Most recent blood pressure 117/72. He remains on IV amiodarone. Echocardiogram completed revealing ejection fraction 35 to 40%, severe right ventricular dilatation, mild mitral and tricuspid regurgitation 02/06/2024 Patient examined this morning the bedside. Patient currently denies chest pain or pressure. He denies shortness of breath. Telemetry reveals atrial fibrillation with heart rate in the 80s. PHYSICAL EXAM: VITAL SIGNS: Reviewed. GENERAL: Well-developed in no acute distress. NECK: Supple. No JVD or thyromegaly LUNGS: Respirations even and unlabored. Lungs essentially clear to auscultation bilaterally. HEART: Irregular rate and rhythm. S1 and S2 heard. EXTREMITIES: Normal range of motion. No clubbing or cyanosis. Peripheral pulses intact. Bilateral lower extremity edema ASSESSMENT: Permanent atrial fibrillation with RVR, currently rate controlled Coronary artery disease with previous PCI, 2017 Ischemic cardiomyopathy, 35 to 40% Suspected peripheral arterial disease Former nicotine dependence Hypomagnesemia Nausea and vomiting Hypotension, likely secondary to hypovolemia from poor oral intake, resolved Generalized weakness Urinary tract infection PLAN: Continue oral anticoagulation with Eliquis Continue current cardiac medications IV amiodarone discontinued yesterday. No oral amiodarone at this time Continue telemetry monitoring Patient is stable for discharge from a cardiac standpoint Patient to follow-up postdischarge with his primary wood processing worker, Dr. Sterling in [place] Further recommendations pending patient course Nurse practitioner note has been reviewed by physician. Signing provider agrees with the documented findings, assessment, and plan of care documented by SPIKE MACHINE OPERATOR as a scribe. Objective - Vital Signs Vital signs: Vital Signs Temp 97.6 F 02/06/24 08:21 Pulse 92 02/06/24 08:21 Resp 18 02/06/24 08:21 BP 113/71 02/06/24 08:21 Pulse Ox 97 02/06/24 08:21 FiO2 Intake & Output 02/05/24 02/06/24 02/06/24 18:59 06:59 18:59 Intake Total 462 250 Output Total 300 500 Balance 162 -500 250 Weight 83.8 kg Intake: IV 10 Invasive Line 2 10 Oral 462 240 Output: Urine 300 500 Other: Voiding Method Urinal Urinal Urinal # Voids 1 - Labs CBC & Chem 7: 02/05/24 06:57 02/05/24 06:57 Labs: Microbiology - Last 24 Hours (Table) 02/03/24 19:15 Blood Culture - Preliminary Blood 02/03/24 20:00 Urine Culture - Final Urine,Clean Catch
[2024-02-06 12:24] VITALS: BP 115/68; PULSE 66; RESP 20; TEMP 96.5
[2024-02-06] MEDS: AZITHROMYCIN 500 MG in SODIUM CHLORIDE 0.9% 250 ML IVPB SCH (12:43)
--- NOTE | 2024-02-06 15:02 | P.DS ---
Providers Date of admission: 02/03/24 20:31 Expected date of discharge: 02/06/24 Attending physician: Jeff Brooks MD Consults: 02/03/24 20:28 Consult Physician Urgent Consulting Provider: Mireya Chaves Consult Reason/Comments: Infection of uncertain cause, possible pneumonia, possible UTI Do you want consulting provider notified?: Yes Consult Physician Urgent Consulting Provider: Shaun Roy Consult Reason/Comments: A-fib with RVR Do you want consulting provider notified?: Yes 02/04/24 09:40 Consult Physician Routine Consulting Provider: Terrence Curry Consult Reason/Comments: 12 mm left kidney lesion with microscopic hematuria and UB diverticuli Do you want consulting provider notified?: Yes Primary care physician: Stated None Hospital Course: Discharge diagnoses: Permanent atrial fibrillation with RVR: Rate controlled now History of CAD with previous PCI to 2017 Ischemic cardiomyopathy with EF 35 to 40%, suspected peripheral arterial disease Former nicotine dependence Hypomagnesemia Nausea and vomiting: Resolved Hypotension: Resolved likely secondary to hypovolemia for poor oral intake Generalized weakness UTI Mild hematuria, microscopic with multiple bladder diverticuli and left renal lesion 112 mm Chronic compression fraction of T12-L1 patient initially treated with IV fluids, blood pressure later on improved Received Rocephin during hospitalization, ID consulted, continue on Rocephin azithromycin at discharge Cardiology consultedcontinue Eliquis, increase metoprolol Started digoxin, Losartan, Aldactone Urology consulted for left kidney lesionrecommended outpatient follow-up Hospital course: This is a pleasant 83 years old male with past medical history of atrial fibrillation on Eliquis at home. Presents because of vomiting for 3 days duration, he said he has been vomiting frequently for 2 days he could not eat and drink, yesterday he tried to drink and right away he threw up However patient has no abdominal pain, yesterday had normal bowel movement no urinary complaints like dysuria or change in frequency, no chest pain or dyspnea, he has mild headache but no dizziness weakness or numbness He quit smoking more than 20 years ago no alcohol or illicit drugs He complains from chronic lower extremity and ankle neuropathy at baseline he uses a walker. Patient also denies abdominal pain or back pain On admission patient has been having a fever of 100.6 Blood pressure borderline 91/72, heart rate 107 proBNP is elevated 1880 Urine analysis showing RBCs about 12 with moderate blood EKG showing A-fib with a rate of 116 Chest x-ray showing left lower lobe opacity, I reviewed the chest x-ray by myself and agree. Most likely related to pneumonia CT of the abdomen and pelvis is negative for acute process but showing age- indeterminate mild to moderate compression fracture of T12 and L1, multiple bladder diverticular disease and 12 mm left kidney lesion needs outpatient MRI with IV contrast per radiolog Patient was admitted to hospital for further evaluation and management of A-fib with RVR and pneumonia. Cardiology and infectious disease was consulted. Patient received IV antibiotics for pneumonia during hospitalization, continued on Ceftin and azithromycin at discharge. Patient was initially started on IV amiodarone which was later on discontinued, patient continued on digoxin at discharge, metoprolol dose was increased to 25 mg daily. Echocardiogram was done which showed EF 35 to 40%, severe RV dilatation, mild mitral and tricuspid regurgitation. Patient heart rate later on remained controlled. Losartan and Aldactone was added at discharge. Patient's condition vital stable at discharge, okay to discharge per cardiology. Patient on room air. Please refer to medical assessment for further details. Patient was also evaluated by urology for left renal mass and recommended outpatient follow-up. PHYSICAL EXAMINATION: GENERAL: The patient is A&O x3, NAD HEENT: EOMI, Sclerae anicteric, Moist Mucous membranes Neck: Supple, Non tender, No JVD PULMONARY: Equal breath souds B/L, No wheezing, No crackles. CARDIOVASCULAR: S1, S2 present. No murmurs, rubs, or gallops. ABDOMEN: Soft, nontender, nondistended, normoactive bowel sounds. No guarding or rebound tenderness. MUSCULOSKELETAL: No edema, No cyanosis. No clubbing. Normal ROM. Intact peripheral pulses. NEUROLOGICAL: CN 2-12 grossly intact. No FND SKIN: No rashes. Dictation was produced using [employer] dictation software. please excuse any grammatical, word or spelling errors. Patient Condition at Discharge: Fair Plan - Discharge Summary New Discharge Prescriptions: New Spironolactone [Aldactone] 12.5 mg PO DAILY #30 tab Digoxin [Lanoxin] 125 mcg PO DAILY #30 tablet cefuroxime axetiL [Ceftin] 500 mg PO BID #6 tab Azithromycin [Zithromax] 500 mg PO DAILY 4 Days #4 tab Continue predniSONE 20 mg PO DAILY Tamsulosin [Flomax] 0.4 mg PO HS Atorvastatin [Lipitor] 40 mg PO HS Furosemide [Lasix] 20 mg PO DAILY PRN PRN Reason: Edema Apixaban [Eliquis] 5 mg PO BID Changed Losartan [Cozaar] 12.5 mg PO DAILY #30 tab Metoprolol Succinate (ER) [Toprol XL] 25 mg PO DAILY #30 tab Discharge Medication List Apixaban [Eliquis] 5 mg PO BID 02/03/24 [History] Atorvastatin [Lipitor] 40 mg PO HS 02/03/24 [History] Furosemide [Lasix] 20 mg PO DAILY PRN 02/03/24 [History] Tamsulosin [Flomax] 0.4 mg PO HS 02/03/24 [History] predniSONE 20 mg PO DAILY 02/03/24 [History] Azithromycin [Zithromax] 500 mg PO DAILY 4 Days #4 tab 02/06/24 [Rx] Digoxin [Lanoxin] 125 mcg PO DAILY #30 tablet 02/06/24 [Rx] Losartan [Cozaar] 12.5 mg PO DAILY #30 tab 02/06/24 [Rx] Metoprolol Succinate (ER) [Toprol XL] 25 mg PO DAILY #30 tab 02/06/24 [Rx] Spironolactone [Aldactone] 12.5 mg PO DAILY #30 tab 02/06/24 [Rx] cefuroxime axetiL [Ceftin] 500 mg PO BID #6 tab 02/06/24 [Rx] Follow up Appointment(s)/Referral(s): Jt Alexander MD [STAFF PHYSICIAN] - 6 Weeks None,Stated [Primary Care Provider] - 1-2 days Discharge Disposition: HOME WITH HOME HEALTH SERVICES
== END 2024-02-06 15:23 | disposition home health service (06) | DRG 308 ==
LOC: EC 15:43 → 3SCARD 20:31
PROVIDERS: ADMIT Internal Medicine; ATTEND Internal Medicine
DX: I48.21 Permanent atrial fibrillation (principal); J18.9 Pneumonia, unspecified organism; N39.0 Urinary tract infection, site not specified; M48.55XA Collapsed vertebra, not elsewhere classified, thoracolumbar region, initial encounter for fracture; I25.10 Atherosclerotic heart disease of native coronary artery without angina pectoris; I25.5 Ischemic cardiomyopathy; E83.42 Hypomagnesemia; R11.2 Nausea with vomiting, unspecified; I95.9 Hypotension, unspecified; N28.89 Other specified disorders of kidney and ureter; R31.29 Other microscopic hematuria; I08.1 Rheumatic disorders of both mitral and tricuspid valves; E86.0 Dehydration; G62.9 Polyneuropathy, unspecified; E86.1 Hypovolemia; I49.3 Ventricular premature depolarization; Z98.61 Coronary angioplasty status; Z87.891 Personal history of nicotine dependence; Z79.899 Other long term (current) drug therapy; Z91.09 Other allergy status, other than to drugs and biological substances
CPT/HCPCS: 36415; 71046; 74177; 76700; 80048; 80053; 80061; 81001; 83036; 83605; 83690; 83735; 83880; 84145; 84443; 84484; 85025; 86140; 87040; 87086; 87449; 87636; 93005; 93306; 93922; 96361; 96365; 96366; 96367; 96368; 96375; 99285

== ENCOUNTER 2024-02-11 10:09 | Observation (INO) | payer MEDICARE, BC ==
--- NOTE | 2024-02-11 10:49 | ED ---
SOB HPI - General Chief Complaint: Upper Respiratory Infection Stated Complaint: sob Time Seen by Provider: 02/11/24 10:11 Source: patient, RN notes reviewed Mode of arrival: EMS Limitations: no limitations - History of Present Illness Initial Comments: This is an 83-year-old male who presents to the emergency department for shortness of breath and coughing. Patient was discharged from this facility on 02/05 and diagnosed with pneumonia. He was discharged with antibiotics, but states that since discharge he has not gotten any better. He continues to feel very short of breath with a productive cough. Also reports generalized abdominal pain. Denies any chest pain, nausea, or vomiting. The abdominal pain was present during his prior visit as well. MD Complaint: shortness of breath, cough - Related Data Home Medications Medication Instructions Recorded Confirmed Apixaban [Eliquis] 5 mg PO BID 02/03/24 02/11/24 Atorvastatin [Lipitor] 40 mg PO HS 02/03/24 02/11/24 Furosemide [Lasix] 20 mg PO DAILY PRN 02/03/24 02/11/24 Tamsulosin [Flomax] 0.4 mg PO HS 02/03/24 02/11/24 predniSONE 20 mg PO DAILY 02/03/24 02/11/24 Previous Rx's Medication Instructions Recorded Digoxin [Lanoxin] 125 mcg PO DAILY #30 tablet 02/06/24 Losartan [Cozaar] 12.5 mg PO DAILY #30 tab 02/06/24 Metoprolol Succinate (ER) [Toprol 25 mg PO DAILY #30 tab 02/06/24 XL] Spironolactone [Aldactone] 12.5 mg PO DAILY #30 tab 02/06/24 Allergies Allergy/AdvReac Type Severity Reaction Status Date / Time itraconazole [From Sporanox] Allergy Rash/Hives Verified 02/11/24 14:37 Review of Systems ROS Statement: Those systems with pertinent positive or pertinent negative responses have been documented in the HPI. ROS Other: All systems not noted in ROS Statement are negative. Past Medical History Past Medical History: Atrial Fibrillation History of Any Multi-Drug Resistant Organisms: None Reported Past Surgical History: Heart Catheterization With Stent Additional Past Surgical History / Comment(s): heart cath 2016 Date of Last Stent Placement:: 2016 Past Psychological History: No Psychological Hx Reported Smoking Status: Former smoker Past Alcohol Use History: None Reported Past Drug Use History: None Reported General Exam Limitations: no limitations General appearance: alert, in no apparent distress Head exam: Present: atraumatic, normocephalic, normal inspection Respiratory exam: Present: normal lung sounds bilaterally. Absent: respiratory distress, wheezes, rales, rhonchi, stridor Cardiovascular Exam: Present: regular rate, normal rhythm, normal heart sounds. Absent: systolic murmur, diastolic murmur, rubs, gallop, clicks GI/Abdominal exam: Present: soft, normal bowel sounds. Absent: distended, tenderness, guarding, rebound, rigid Neurological exam: Present: alert, oriented X3, CN II-XII intact Psychiatric exam: Present: normal affect, normal mood Skin exam: Present: warm, dry, intact, normal color. Absent: rash Course Vital Signs 02/11/24 02/11/24 02/11/24 10:12 11:35 11:56 Temperature 97.8 F Pulse Rate 76 51 L Respiratory 20 18 18 Rate Blood Pressure 103/68 94/54 O2 Sat by Pulse 97 96 Oximetry 02/11/24 02/11/24 02/11/24 12:18 13:05 14:20 Temperature Pulse Rate 51 L 52 L 88 Respiratory 20 18 20 Rate Blood Pressure 89/54 117/70 99/71 O2 Sat by Pulse 97 97 97 Oximetry 02/11/24 02/11/24 15:00 15:30 Temperature Pulse Rate 98 93 Respiratory 18 16 Rate Blood Pressure 106/66 94/65 O2 Sat by Pulse 100 97 Oximetry Medical Decision Making - Medical Decision Making This is an 83-year-old male who presents emergency department for shortness of breath. Was pt. sent in by a medical professional or institution? @ -No Did you speak to anyone other than the patient for history? @ -No Did you review nursing and triage notes? @ -Yes, and I agree, it is accurate with regards to the patient's symptoms. Were old charts reviewed? @ -No Differential Diagnosis? @ -Differential Dyspnea: Coronary syndrome, arrhythmia, tamponade, asthma, COPD, pulmonary embolism, pneumonia, pneumothorax, pulmonary effusion, anaphylaxis, diabetic ketoacidosis, flailed chest, pulmonary contusion, diaphragmatic rupture, anemia, neuromuscular, this is not meant to be an all-inclusive list. EKG interpreted by me (3pts min.)? @ -EKG interpreted by me demonstrating the following: Sinus tachycardia. Ventricular rate 110 bpm, NV interval 253 ms, QRS duration 96 ms, QTc 409 ms. X-rays interpreted by me (1pt min.)? @ -Chest x-ray obtained, my interpretation identifies no localized consolidations or infiltrates. CT interpreted by me (1pt min.)? @ -Not obtained U/S interpreted by me (1pt. min.)? @ -Not obtained What testing was considered but not performed? (CT, X-rays, U/S, labs)? Why? @ -None What meds were considered but not given? Why? @ -None Did you discuss the management of the patient with other professionals? @ -Yes, Dr. Brooks, who accepts the patient for admission Did you reconcile home meds? @ -No Was smoking cessation discussed for >3mins.? @ -No Was critical care preformed (if so, how long)? @ -No Were there social determinants of health that impacted care today? How? (Homelessness, low income, unemployed, alcoholism, drug addiction, transportation, low edu. Level, literacy, decrease access to med. care, [facility], rehab)? @ -No Was there de-escalation of care discussed even if they declined? (Discuss DNR or withdrawal of care, Hospice)? @ -No What co-morbidities impacted this encounter? (DM, HTN, Smoking, COPD, CAD, Cancer, CVA, Hep., AIDS, mental health diagnosis, sleep apnea, morbid obesity)? @ -A-fib Was patient admitted / discharged? @ -Admitted. Lab work demonstrates mild leukocytosis and an elevated BNP of 2350. Patient is also positive for COVID-19. On reevaluation of the patient, he started to become more and more hypotensive with his blood pressure in the 80s systolically. He was also bradycardic with his heart rate dropping down into the 40s. Daughter states that he did not take any of his medication today and she is concerned about how low it could have gotten if he had. Given his progressive symptoms with unstable vital signs, patient was admitted to medicine for further evaluation and management. Consult placed for cardiology regarding symptomatic bradycardia to see if any medication adjustments can be made. Case discussed with ED attending Dr. Huynh. Undiagnosed new problem with uncertain prognosis? @ -None Drug Therapy requiring intensive monitoring for toxicity (Heparin, Nitro, Insulin, Cardizem)? @ -None Were any procedures done? @ -None Diagnosis/symptom? @ -Symptomatic bradycardia, hypotension, COVID-19 Acute, or Chronic, or Acute on Chronic? @ -Acute Uncomplicated (without systemic symptoms) or Complicated (systemic symptoms)? @ -Complicated Side effects of treatment? @ -None yes Exacerbation, Progression, or Severe Exacerbation] @ -Not applicable Poses a threat to life or bodily function? @ -Yes - Lab Data Result diagrams: 02/11/24 11:12 02/11/24 11:12 Lab Results 02/11/24 02/11/24 02/11/24 Range/Units 10:56 11:12 11:12 WBC 11.0 H (3.8-10.6) k/uL RBC 4.54 (4.30-5.90) m/uL Hgb 14.7 (13.0-17.5) gm/dL Hct 44.3 (39.0-53.0) % MCV 97.7 (80.0-100.0) fL MCH 32.5 (25.0-35.0) pg MCHC 33.2 (31.0-37.0) g/dL RDW 13.5 (11.5-15.5) % Plt Count 204 (150-450) k/uL MPV 7.8 Neutrophils % 85 % Lymphocytes % 10 % Monocytes % 4 % Eosinophils % 1 % Basophils % 0 % Neutrophils # 9.4 H (1.3-7.7) k/uL Lymphocytes # 1.1 (1.0-4.8) k/uL Monocytes # 0.4 (0-1.0) k/uL Eosinophils # 0.1 (0-0.7) k/uL Basophils # 0.0 (0-0.2) k/uL PT 11.9 (10.0-12.5) sec INR 1.1 (<1.2) APTT 22.1 (22.0-30.0) sec Sodium (137-145) mmol/L Potassium (3.5-5.1) mmol/L Chloride (98-107) mmol/L Carbon Dioxide (22-30) mmol/L Anion Gap mmol/L BUN (9-20) mg/dL Creatinine (0.66-1.25) mg/dL Est GFR (CKD-EPI)AfAm (>60 ml/min/1.73 sqM) Est GFR (CKD-EPI)NonAf (>60 ml/min/1.73 sqM) Glucose (74-99) mg/dL Plasma Lactic Acid Emeka (0.7-2.0) mmol/L Calcium (8.4-10.2) mg/dL Magnesium (1.6-2.3) mg/dL Total Bilirubin (0.2-1.3) mg/dL AST (17-59) U/L ALT (4-49) U/L Alkaline Phosphatase (38-126) U/L Troponin I (0.000-0.034) ng/mL C-Reactive Protein (<1.0) mg/dL NT-Pro-B Natriuret Pep pg/mL Total Protein (6.3-8.2) g/dL Albumin (3.5-5.0) g/dL Influenza Type A (PCR) Not Detected (Not Detectd) Influenza Type B (PCR) Not Detected (Not Detectd) RSV (PCR) Not Detected (Not Detectd) SARS-CoV-2 (PCR) Detected A (Not Detectd) 02/11/24 02/11/24 02/11/24 Range/Units 11:12 11:12 11:12 WBC (3.8-10.6) k/uL RBC (4.30-5.90) m/uL Hgb (13.0-17.5) gm/dL Hct (39.0-53.0) % MCV (80.0-100.0) fL MCH (25.0-35.0) pg MCHC (31.0-37.0) g/dL RDW (11.5-15.5) % Plt Count (150-450) k/uL MPV Neutrophils % % Lymphocytes % % Monocytes % % Eosinophils % % Basophils % % Neutrophils # (1.3-7.7) k/uL Lymphocytes # (1.0-4.8) k/uL Monocytes # (0-1.0) k/uL Eosinophils # (0-0.7) k/uL Basophils # (0-0.2) k/uL PT (10.0-12.5) sec INR (<1.2) APTT (22.0-30.0) sec Sodium 139 (137-145) mmol/L Potassium 3.9 (3.5-5.1) mmol/L Chloride 103 (98-107) mmol/L Carbon Dioxide 28 (22-30) mmol/L Anion Gap 8 mmol/L BUN 27 H (9-20) mg/dL Creatinine 0.79 (0.66-1.25) mg/dL Est GFR (CKD-EPI)AfAm >90 (>60 ml/min/1.73 sqM) Est GFR (CKD-EPI)NonAf 83 (>60 ml/min/1.73 sqM) Glucose 96 (74-99) mg/dL Plasma Lactic Acid Emeka 1.6 (0.7-2.0) mmol/L Calcium 9.2 (8.4-10.2) mg/dL Magnesium 1.8 (1.6-2.3) mg/dL Total Bilirubin 1.6 H (0.2-1.3) mg/dL AST 28 (17-59) U/L ALT 27 (4-49) U/L Alkaline Phosphatase 83 (38-126) U/L Troponin I 0.019 (0.000-0.034) ng/mL C-Reactive Protein (<1.0) mg/dL NT-Pro-B Natriuret Pep 2350 pg/mL Total Protein 6.0 L (6.3-8.2) g/dL Albumin 3.7 (3.5-5.0) g/dL Influenza Type A (PCR) (Not Detectd) Influenza Type B (PCR) (Not Detectd) RSV (PCR) (Not Detectd) SARS-CoV-2 (PCR) (Not Detectd) 02/11/24 Range/Units 12:55 WBC (3.8-10.6) k/uL RBC (4.30-5.90) m/uL Hgb (13.0-17.5) gm/dL Hct (39.0-53.0) % MCV (80.0-100.0) fL MCH (25.0-35.0) pg MCHC (31.0-37.0) g/dL RDW (11.5-15.5) % Plt Count (150-450) k/uL MPV Neutrophils % % Lymphocytes % % Monocytes % % Eosinophils % % Basophils % % Neutrophils # (1.3-7.7) k/uL Lymphocytes # (1.0-4.8) k/uL Monocytes # (0-1.0) k/uL Eosinophils # (0-0.7) k/uL Basophils # (0-0.2) k/uL PT (10.0-12.5) sec INR (<1.2) APTT (22.0-30.0) sec Sodium (137-145) mmol/L Potassium (3.5-5.1) mmol/L Chloride (98-107) mmol/L Carbon Dioxide (22-30) mmol/L Anion Gap mmol/L BUN (9-20) mg/dL Creatinine (0.66-1.25) mg/dL Est GFR (CKD-EPI)AfAm (>60 ml/min/1.73 sqM) Est GFR (CKD-EPI)NonAf (>60 ml/min/1.73 sqM) Glucose (74-99) mg/dL Plasma Lactic Acid Emeka (0.7-2.0) mmol/L Calcium (8.4-10.2) mg/dL Magnesium (1.6-2.3) mg/dL Total Bilirubin (0.2-1.3) mg/dL AST (17-59) U/L ALT (4-49) U/L Alkaline Phosphatase (38-126) U/L Troponin I (0.000-0.034) ng/mL C-Reactive Protein <0.5 (<1.0) mg/dL NT-Pro-B Natriuret Pep pg/mL Total Protein (6.3-8.2) g/dL Albumin (3.5-5.0) g/dL Influenza Type A (PCR) (Not Detectd) Influenza Type B (PCR) (Not Detectd) RSV (PCR) (Not Detectd) SARS-CoV-2 (PCR) (Not Detectd) - Radiology Data Radiology results: report reviewed, image reviewed Disposition Clinical Impression: Hypotension, Bradycardia, COVID-19 Disposition: ADMITTED IP TO THIS HOSP
--- NOTE | 2024-02-11 11:01 | XR ---
Chest, 2 view. HISTORY: Difficulty breathing COMPARISON: 02/03/2024 TECHNIQUE: PA and lateral views the chest are obtained. FINDINGS: The lungs are clear and there is no consolidative or interstitial opacity. There is no pleural effusion or pneumothorax. The heart is mildly enlarged. Pulmonary vasculature is not congested. The osseous structures are intact. IMPRESSION: Mild cardiomegaly. No acute cardiopulmonary disease. [facility], , 02/11/2024 10:59 AM
[2024-02-11 11:22] LABS: Basophils % (A) 0 %; Eosinophils # (A) 0.1 k/uL (0-0.7); Eosinophils % (A) 1 %; HCT 44.3 % (39.0-53.0); HGB 14.7 gm/dL (13.0-17.5); Lymphocytes # (A) 1.1 k/uL (1.0-4.8); Lymphocytes % (A) 10 %; MCH 32.5 pg (25.0-35.0); MCHC 33.2 g/dL (31.0-37.0); MCV 97.7 fL (80.0-100.0); Mean Platelet Volume 7.8; Monocytes # (A) 0.4 k/uL (0-1.0); Monocytes % (A) 4 %; Neutrophils # (A) 9.4 k/uL (1.3-7.7); Neutrophils % (A) 85 %; Platelet Count 204 k/uL (150-450); RBC 4.54 m/uL (4.30-5.90); RDW 13.5 % (11.5-15.5)
[2024-02-11 11:36] LABS: ALT 27 U/L (4-49); AST 28 U/L (17-59); African American GFR (CKD) >90 (>60 ml/min/1.73 sqM); Albumin 3.7 g/dL (3.5-5.0); Alkaline Phosphatase 83 U/L (38-126); Anion Gap 8 mmol/L; Blood Urea Nitrogen 27 mg/dL (9-20); Calcium 9.2 mg/dL (8.4-10.2); Carbon Dioxide 28 mmol/L (22-30); Chloride 103 mmol/L (98-107); Glucose 96 mg/dL (74-99); Magnesium 1.8 mg/dL (1.6-2.3); Non-African American GFR(CKD) 83 (>60 ml/min/1.73 sqM); Potassium 3.9 mmol/L (3.5-5.1); Sodium 139 mmol/L (137-145); Total Bilirubin 1.6 mg/dL (0.2-1.3)
[2024-02-11 11:44] LABS: NT-Pro-B-Type Natriuretic Pept 2350 pg/mL
[2024-02-11] MEDS: SODIUM CHLORIDE 0.9% 1,000 ML IV STA (11:46)
[2024-02-11 11:53] LABS: INR 1.1 (<1.2); Partial Thromboplastin Time 22.1 sec (22.0-30.0); Prothrombin Time 11.9 sec (10.0-12.5)
[2024-02-11] MEDS ORDERED: ALBUTEROL HFA INHALER INHALATION PRN (12:51)
[2024-02-11] MEDS: ALBUTEROL HFA INHALER INHALATION SCH (13:27)
[2024-02-11] MEDS ORDERED: MORPHINE SULFATE 4 MG/ML SYRINGE IV PRN (13:51)
[2024-02-11] MEDS ORDERED: NALOXONE 0.4 MG/ML 1 ML VIAL IV PRN (13:51)
[2024-02-11] MEDS ORDERED: ONDANSETRON 4 MG/2 ML VIAL IVP PRN (13:51)
[2024-02-11] MEDS ORDERED: HYDROcodone/APAP 5-325MG 1 EACH TAB PO PRN (13:51)
[2024-02-11] MEDS ORDERED: guaiFENesin-Coden 100-10MG/5ML 10 ML CUP PO PRN (14:18)
[2024-02-11] MEDS: guaiFENesin 600 MG TABLET.ER PO SCH (14:58)
[2024-02-11] MEDS: ACETAMINOPHEN TAB 325 MG TAB PO PRN (21:05)
[2024-02-11] MEDS: TAMSULOSIN 0.4 MG CAP.ER.24H PO SCH (21:05)
[2024-02-11] MEDS: ATORVASTATIN 40 MG TAB PO SCH (21:05)
[2024-02-11] MEDS: METOPROLOL SUCCINATE (ER) 25 MG TAB.ER.24H PO STA (21:05)
[2024-02-11] MEDS: APIXABAN 5 MG TAB PO SCH (21:05)
[2024-02-11] MEDS: DILTIAZEM 125 MG in SODIUM CHLORIDE 0.9% 100 ML IV SCH (22:51)
[2024-02-12 06:35] LABS: Basophils % (A) 0 %; Eosinophils % (A) 1 %; HCT 40.1 % (39.0-53.0); HGB 13.4 gm/dL (13.0-17.5); Lymphocytes # (A) 0.5 k/uL (1.0-4.8); Lymphocytes % (A) 7 %; MCH 32.8 pg (25.0-35.0); MCHC 33.4 g/dL (31.0-37.0); MCV 98.2 fL (80.0-100.0); Mean Platelet Volume 8.1; Monocytes # (A) 0.6 k/uL (0-1.0); Monocytes % (A) 8 %; Neutrophils % (A) 84 %; Platelet Count 169 k/uL (150-450); RBC 4.09 m/uL (4.30-5.90); RDW 13.5 % (11.5-15.5); WBC 8.3 k/uL (3.8-10.6)
[2024-02-12 06:53] LABS: ALT 22 U/L (4-49); AST 35 U/L (17-59); African American GFR (CKD) >90 (>60 ml/min/1.73 sqM); Albumin 3.1 g/dL (3.5-5.0); Alkaline Phosphatase 69 U/L (38-126); Anion Gap 6 mmol/L; Blood Urea Nitrogen 23 mg/dL (9-20); Calcium 8.2 mg/dL (8.4-10.2); Carbon Dioxide 28 mmol/L (22-30); Chloride 99 mmol/L (98-107); Glucose 84 mg/dL (74-99); Non-African American GFR(CKD) 86 (>60 ml/min/1.73 sqM); Potassium 4.2 mmol/L (3.5-5.1); Sodium 133 mmol/L (137-145); Total Bilirubin 1.5 mg/dL (0.2-1.3); Total Protein 5.3 g/dL (6.3-8.2)
[2024-02-12] MEDS: ALBUTEROL HFA INHALER INHALATION SCH (07:52)
[2024-02-12] MEDS: PANTOPRAZOLE 40 MG/10 ML VIAL IV SCH (07:58)
[2024-02-12] MEDS: SPIRONOLACTONE 25 MG TAB PO SCH (07:59)
[2024-02-12] MEDS: METOPROLOL SUCCINATE (ER) 25 MG TAB.ER.24H PO SCH ×2 (07:59→20:03)
--- NOTE | 2024-02-12 08:28 | P.CONS ---
History of Present Illness - Reason for Consult Consult date: 02/11/24 Infection of uncertain cause slight cellulitis Requesting physician: Claudia Ramos - Chief Complaint Shortness of breath and cough x few days - History of Present Illness Patient is a 83-year-old male with a past medical history significant for atrial fibrillation coronary disease status post PTCA stent former smoker in this patient who was recently admitted to this facility from 02/03/2024 till 1228 and was treated for pneumonia subsequent discharged home patient now presenting back to the hospital concerning for increasing shortness of breath and the patient also have a cough patient describes a cough to moderate intensity however mostly dry in nature not able to bring up any sputum he did have some lower abdominal discomfort and nausea but no vomiting and no diarrhea patient was noticed to have increasing swelling bilateral lower extremity howeve r denies significant pain to the legs on presentation to the hospital the patient was afebrile and no fever have recorded subsequently patient was mildly tachycardic but not hypotensive or hypoxic and no need for supplemental oxygen patient did have white count of 11,000 with a left shift creatinine 0.7 and electrolyte has been normal liver isms are normal patient did tested positive for COVID-19 that he tested negative for COVID on 02/03/2024 patient did have a chest x-ray mild cardiomegaly no acute cardiopulmonary disease patient was started on cefazolin concern for lower extremity cellulitis infectious disease was consulted for further management of antibiotic therapy Review of Systems Positive point and negatives has been mentioned in the HPI, complete review of systems was performed and all other systems are negative Past Medical History Past Medical History: Atrial Fibrillation History of Any Multi-Drug Resistant Organisms: None Reported Past Surgical History: Heart Catheterization With Stent Additional Past Surgical History / Comment(s): heart cath 2016 Date of Last Stent Placement:: 2016 Past Psychological History: No Psychological Hx Reported Smoking Status: Former smoker Past Alcohol Use History: None Reported Past Drug Use History: None Reported Medications and Allergies Home Medications Medication Instructions Recorded Confirmed Type Apixaban [Eliquis] 5 mg PO BID 02/03/24 02/11/24 History Atorvastatin [Lipitor] 40 mg PO HS 02/03/24 02/11/24 History Furosemide [Lasix] 20 mg PO DAILY PRN 02/03/24 02/11/24 History Tamsulosin [Flomax] 0.4 mg PO HS 02/03/24 02/11/24 History predniSONE 20 mg PO DAILY 02/03/24 02/11/24 History Digoxin [Lanoxin] 125 mcg PO DAILY #30 tablet 02/06/24 02/11/24 Rx Losartan [Cozaar] 12.5 mg PO DAILY #30 tab 02/06/24 02/11/24 Rx Metoprolol Succinate (ER) [Toprol 25 mg PO DAILY #30 tab 02/06/24 02/11/24 Rx XL] Spironolactone [Aldactone] 12.5 mg PO DAILY #30 tab 02/06/24 02/11/24 Rx Allergies Allergy/AdvReac Type Severity Reaction Status Date / Time itraconazole [From Sporanox] Allergy Rash/Hives Verified 02/11/24 14:37 Physical Exam Vitals: Vital Signs Temp Pulse Resp BP Pulse Ox 02/11/24 14:20 88 20 99/71 97 02/11/24 13:05 52 L 18 117/70 97 02/11/24 12:18 51 L 20 89/54 97 02/11/24 11:56 18 02/11/24 11:35 51 L 18 94/54 96 02/11/24 10:12 97.8 F 76 20 103/68 97 Intake and Output 02/10/24 02/11/24 02/11/24 22:59 06:59 14:59 Other: Weight 80.739 kg GENERAL DESCRIPTION: Elderly male lying in bed, no distress. No tachypnea or accessory muscle of respiration use. HEENT: Shows Pallor , no scleral icterus. Oral mucous membrane is dry. NECK: Trachea central, no thyromegaly. LUNGS: Unlabored breathing. Decreased breath sound the base HEART: S1, S2, regular rate and rhythm. No loud murmur ABDOMEN: Soft, no tenderness , EXTREMITIES: Swelling to bilateral extremity with some erythema warm to touch no open wound or drainage SKIN: No rash, no masses palpable. NEUROLOGICAL: The patient is awake, alert, oriented x3, mood and affect normal. Results CBC & Chem 7: 02/13/24 07:11 02/13/24 07:11 Labs: Abnormal Lab Results - Last 24 Hours (Table) 02/11/24 02/11/24 02/11/24 Range/Units 10:56 11:12 11:12 WBC 11.0 H (3.8-10.6) k/uL Neutrophils # 9.4 H (1.3-7.7) k/uL BUN 27 H (9-20) mg/dL Total Bilirubin 1.6 H (0.2-1.3) mg/dL Total Protein 6.0 L (6.3-8.2) g/dL SARS-CoV-2 (PCR) Detected A (Not Detectd) Assessment and Plan (1) Bilateral lower leg cellulitis Current Visit: Yes Status: Acute Code(s): L03.116 - CELLULITIS OF LEFT LOWER LIMB; L03.115 - CELLULITIS OF RIGHT LOWER LIMB SNOMED Code(s): 167699250 (2) COVID-19 Current Visit: Yes Status: Acute Code(s): U07.1 - COVID-19 SNOMED Code(s): 315845469 Plan: 1patient presenting to the hospital with increasing cough shortness of breath in this patient who did tested positive for COVID-19 patient however is not hypoxic no need for supplemental oxygen chest x-ray has been negative for any acute infiltrate did will be mostly supportive 2-patient did have swelling and some redness lower extremity cellulitis not entirely excluded 3-we will continue the patient cefazolin 2 g every 8 hours and see clinical response We will follow on clinical condition and cultures to further adjust medication if needed Thank you for this consultation we will follow the patient along with you Dictation was produced using [employer] dictation software. please excuse any grammatical, word or spelling errors. Time with Patient: Greater than 30
[2024-02-12] MEDS: ZINC SULFATE 220 MG CAP PO SCH (09:38)
[2024-02-12] MEDS: DAPAGLIFLOZIN PROPANEDIOL 10 MG TABLET PO SCH (09:38)
[2024-02-12] MEDS: LOSARTAN 25 MG TAB PO SCH (09:38)
[2024-02-12] MEDS: FUROSEMIDE 10 MG/ML 2 ML VIAL IV SCH (09:38)
[2024-02-12] MEDS: ASCORBIC ACID 500 MG TAB PO SCH (09:38)
--- NOTE | 2024-02-12 10:11 | P.HPIM ---
History of Present Illness H&P Date: 02/11/24 History of present illness; patient 83-year-old gentleman with past medical history significant for coronary disease, atrial fibrillation, ischemic cardiomyopathy presented the ER because of shortness of breath and cough. Patient was discharged from the hospital recently after being treated for pne umonia, patient completed course of antibiotics at home. Patient stated that yesterday evening he started noticing worsening shortness of breath, also complaining of cough at the time. Patient stated that the cough was very severe and was making it hard to catch his breath. There was no complaint of chest pain. There is no complaint of orthopnea or PND. Patient was complaining of swelling of lower extremity, right more than left with increasing pain in right lower extremity. Patient is complaining of abdominal pain. There is no current nausea or vomiting. Because of the symptoms, patient presented the ED Initial lab work done in the ER showed showed WBC 11, hemoglobin 14.7, platelet count 204, sodium 139, potassium 3.3, BUN 27, creatinine 0.79, calcium 9.2, magnesium 1.8, bili 1.6, troponin 0.019, proBNP 2350 Influenza A not detected Influenza B not detected RSV not detected COVID-19 detected EKG done in the ER showed heart rate of 110, no ST segment elevation or depression seen, no T-wave inversions seen. Chest x-ray done in the ER showed mild cardiomegaly, no acute cardiology process Patient admitted to internal medicine service REVIEW OF SYSTEMS: CONSTITUTIONAL: No fever, no malaise, no fatigue. HEENT: No recent visual problems or hearing problems. Denied any sore throat. CARDIOVASCULAR: As mentioned above PULMONARY: As mentioned above GASTROINTESTINAL: No diarrhea, no nausea, no vomiting, no abdominal pain. NEUROLOGICAL: No headaches, no weakness, no numbness. HEMATOLOGICAL: Denies any bleeding or petechiae. GENITOURINARY: Denies any burning micturition, frequency, or urgency. MUSCULOSKELETAL/RHEUMATOLOGICAL: Denies any joint pain, swelling, or any muscle pain. ENDOCRINE: Denies any polyuria or polydipsia. The rest of the 14-point review of systems is negative. PHYSICAL EXAMINATION: GENERAL: The patient is alert and oriented x3, ill looking HEENT: Pupils are round and equally reacting to light. EOMI. No scleral icterus. No conjunctival pallor. Normocephalic, atraumatic. No pharyngeal erythema. No thyromegaly. CARDIOVASCULAR: S1 and S2 present. No murmurs, rubs, or gallops. PULMONARY: Chest is clear to auscultation, no wheezing or crackles. ABDOMEN: Soft, nontender, nondistended, normoactive bowel sounds. No palpable organomegaly. MUSCULOSKELETAL: 1+ pitting edema lower extremities, right lower extremity erythema seen EXTREMITIES: No cyanosis, clubbing. NEUROLOGICAL: Gross neurological examination did not reveal any focal deficits. SKIN: No rashes. Assessment and plan Shortness of breath Bradycardia Right lower EXTR cellulitis History of COVID-19 infection Permanent atrial fibrillation with RVR: Rate controlled now History of CAD with previous PCI to 2017 Ischemic cardiomyopathy with EF 35 to 40%, suspected peripheral arterial disease Former nicotine dependence Generalized weakness Chronic compression fraction of T12-L1 Monitor vital signs Monitor CBC Monitor CMP Continue telemetry monitoring Ordered CRP, ESR, Pro-Margarito, Ordered Mucinex Ordered blood cultures Ordered breathing treatments Ordered IV cefazolin Resume home meds Cardiology consulted by ER for episodes of bradycardia ID consulted Labs and medication were reviewed.. Continue same treatment. Continue with symptomatic treatment. Resume home medication. Monitor labs and vitals. DVT and GI prophylaxis. Further recommendations as per clinical course of the patient Dictation was produced using [employer] dictation software. please excuse any gram matical, word or spelling errors. Past Medical History Past Medical History: Atrial Fibrillation History of Any Multi-Drug Resistant Organisms: None Reported Past Surgical History: Heart Catheterization With Stent Additional Past Surgical History / Comment(s): heart cath 2016 Date of Last Stent Placement:: 2016 Past Psychological History: No Psychological Hx Reported Smoking Status: Former smoker Past Alcohol Use History: None Reported Past Drug Use History: None Reported Medications and Allergies Home Medications Medication Instructions Recorded Confirmed Type Apixaban [Eliquis] 5 mg PO BID 02/03/24 02/03/24 History Atorvastatin [Lipitor] 40 mg PO HS 02/03/24 02/03/24 History Furosemide [Lasix] 20 mg PO DAILY PRN 02/03/24 02/03/24 History Tamsulosin [Flomax] 0.4 mg PO HS 02/03/24 02/03/24 History predniSONE 20 mg PO DAILY 02/03/24 02/03/24 History Azithromycin [Zithromax] 500 mg PO DAILY 4 Days #4 tab 02/06/24 Rx Digoxin [Lanoxin] 125 mcg PO DAILY #30 tablet 02/06/24 Rx Losartan [Cozaar] 12.5 mg PO DAILY #30 tab 02/06/24 Rx Metoprolol Succinate (ER) [Toprol 25 mg PO DAILY #30 tab 02/06/24 Rx XL] Spironolactone [Aldactone] 12.5 mg PO DAILY #30 tab 02/06/24 Rx cefuroxime axetiL [Ceftin] 500 mg PO BID #6 tab 02/06/24 Rx Allergies Allergy/AdvReac Type Severity Reaction Status Date / Time itraconazole [From Sporanox] Allergy Rash/Hives Verified 02/03/24 19:35 Physical Exam Vitals: Vital Signs Temp Pulse Resp BP Pulse Ox 02/11/24 13:05 52 L 18 117/70 97 02/11/24 12:18 51 L 20 89/54 97 02/11/24 11:56 18 02/11/24 11:35 51 L 18 94/54 96 02/11/24 10:12 97.8 F 76 20 103/68 97 Intake and Output 02/10/24 02/11/24 02/11/24 22:59 06:59 14:59 Other: Weight 80.739 kg Results CBC & Chem 7: 02/11/24 11:12 02/11/24 11:12 Labs: Abnormal Lab Results - Last 24 Hours (Table) 02/11/24 02/11/24 02/11/24 Range/Units 10:56 11:12 11:12 WBC 11.0 H (3.8-10.6) k/uL Neutrophils # 9.4 H (1.3-7.7) k/uL BUN 27 H (9-20) mg/dL Total Bilirubin 1.6 H (0.2-1.3) mg/dL Total Protein 6.0 L (6.3-8.2) g/dL SARS-CoV-2 (PCR) Detected A (Not Detectd)
[2024-02-12 11:00] VITALS: BMI 16.9
[2024-02-12 11:42] LABS: Appearance,Urine Clear (Clear); Bilirubin,Urine Negative (Negative); Blood,Urine Trace (Negative); Color,Urine Colorless; Glucose,Urine (UA) 1+ (Negative); Ketones,Urine Negative (Negative); Leukocyte Esterase,Urine Negative (Negative); Mucus,Urine Rare /hpf; Nitrite,Urine Negative (Negative); PH, Urine 6.5 (5.0-8.0); Protein,Urine Negative (Negative); RBC,Urine 2 /hpf (0-5); Specific Gravity,Urine 1.006 (1.001-1.035); Squamous Epithelial Cell,Urine <1 /hpf (0-4); Urobilinogen,Urine <2.0 mg/dL (<2.0); WBC,Urine <1 /hpf (0-5)
[2024-02-12] MEDS: predniSONE 20 MG TAB PO SCH (11:43)
--- NOTE | 2024-02-12 12:02 | P.PN ---
Subjective Progress Note Date: 02/12/24 Principal diagnosis: Hospital course: Patient 83-year-old gentleman with past medical history significant for coronary disease, atrial fibrillation, ischemic cardiomyopathy presented the ER because of shortness of breath and cough. Patient was discharged from the hospital recently after being treated for pneumonia, patient completed course of antibiotics at home. Patient stated that yesterday evening he started noticing worsening shortness of breath, also complaining of cough at the time. Patient stated that the cough was very severe and was making it hard to catch his b reath. There was no complaint of chest pain. There is no complaint of orthopnea or PND. Patient was complaining of swelling of lower extremity, right more than left with increasing pain in right lower extremity. Patient is complaining of abdominal pain. There is no current nausea or vomiting. Because of the symptoms, patient presented the ED Initial lab work done in the ER showed showed WBC 11, hemoglobin 14.7, platelet count 204, sodium 139, potassium 3.3, BUN 27, creatinine 0.79, calcium 9.2, magnesium 1.8, bili 1.6, troponin 0.019, proBNP 2350 Influenza A not detected Influenza B not detected RSV not detected COVID-19 detected EKG done in the ER showed heart rate of 110, no ST segment elevation or depression seen, no T-wave inversions seen. Chest x-ray done in the ER showed mild cardiomegaly, no acute cardiology process Patient admitted to internal medicine service 02/12/24: Patient seen and examined today at bedside. Patient is currently saturating at 97% on 2L of oxygen via nasal cannula and pulse is 105 bpm. Labs today show WBC 8.3, hemoglobin 13.4, sodium 133, BUN 23, total bilirubin 1.5. Procalcitonin 0.08, ESR is 2 and CRP is 3.6 Review of systems: Pertinent positives and negatives as discussed in HPI, a complete review of systems was performed and all other systems are negative. Vitals: Signs Reviewed Physical examination: General: nontoxic, no distress, appears at stated age Derm: warm, dry, intact Head: atraumatic, normocephalic, symmetric Eyes: EOMI, anicteric sclera Mouth: no lip lesion, mucus membranes moist Cardiovascular: S1 S2 reg, no murmur Lungs: CTA bilateral, no rhonchi, no rales, no accessory muscle use Abdominal: soft, non-tender to palpataion Extremities: 1+ pitting edema of the LE b/l, left LE erythema, No cyanosis, clubbing Neuro: Alert, Oriented, Gross neurological examination did not reveal any focal deficits. Psych: well appearing, appropriate affect Assessment/Plan: Patient is a 83 year old male with past medical history of atrial fibrillation and heart catheterisation with stent placement in 2017 presented to the ED with shortness of breath. and productive cough along with bilateral lower extremity edema. He has been admitted for bilateral lower extremity cellulitis, acute hypoxic respiratory failure, COVID-19 pneumonia. Active: #. Acute hypoxic respiratory failure #. Ischemic cardiomyopathy with EF 35 to 40% #. Covid-19 penumonia proBNP 2350 Chest x-ray shows mild cardiomegaly, no acute cardiopulmonary disease Continue supplemental oxygen, currently on 2 L oxygen via nasal cannula Continue albuterol inhaler 2 puffs every 6 hours as needed and 3 times daily, guaifenesin 10 mL p.o. every 6 hours as needed, guaifenesin 600 mg p.o. every 12 hours, ascorbic acid 1000 mg p.o. daily, zinc sulfate to 20 mg p.o. daily Continue metoprolol 25 mg p.o. twice daily, losartan 12.5 mg p.o. daily, s pironolactone 5 mg p.o. daily, [id number] mg IV daily, Dapagliflozin 10 mg p.o. daily Obtain sputum culture Encourage to use Incentive spirometer Q1HR Cardiology is following #. Bilateral lower extremity cellulitis CRP is 3.6, ESR is 2 Continue Cefazolin 2gm Q8HR Obtain blood culture ID is following #. Nausea and vomiting Continue Zofran 4 mg IV every 8 hours as needed #. Bradycardia, resolved #. Hypotension, resolved Chronic: #. Permanent atrial fibrillation with rapid ventricular response #. History of CAD s/p PCI in 2017 #. Suspected PAD #. Former nicotine dependence #. BPH #. Chronic compression fracture of T12-L1 Continue Eliquis 5 mg p.o. twice daily, metoprolol 25 mg p.o. twice daily, atorvastatin 40 mg p.o. at bedtime, losartan 12.5 mg p.o. daily, spironolactone 12.5 mg p.o. daily, tamsulosin 0.4 mg p.o. at bedtime, dapagliflozin 10 mg p.o. daily F: None E: Replete as required N: Heart healthy diet DVT prophylaxis: Eliquis 5 mg p.o. twice daily GI prophylaxis: Pantoprazole 40 mg IV daily Attestation I have seen and examined this patient with my resident , discussed the same with the resident/TRACI, and agree with the dictator's assessment and plan as written Dr. Jeff dias Objective - Vital Signs Vital signs: Vital Signs Temp 98 F 02/12/24 03:47 Pulse 112 H 02/12/24 03:47 Resp 16 02/12/24 03:47 BP 133/72 02/12/24 03:47 Pulse Ox 95 02/12/24 03:47 FiO2 Intake & Output 02/11/24 02/12/24 02/12/24 18:59 06:59 18:59 Output Total 300 0 Balance -300 0 Weight 80.739 kg 55 kg Output: Urine 300 0 Other: Voiding Method Urinal - Labs CBC & Chem 7: 02/13/24 07:11 02/13/24 07:11 Labs: Abnormal Lab Results - Last 24 Hours (Table) 02/11/24 02/11/24 02/11/24 Range/Units 10:56 11:12 11:12 WBC 11.0 H (3.8-10.6) k/uL RBC (4.30-5.90) m/uL Neutrophils # 9.4 H (1.3-7.7) k/uL Lymphocytes # (1.0-4.8) k/uL Sodium (137-145) mmol/L BUN 27 H (9-20) mg/dL Calcium (8.4-10.2) mg/dL Total Bilirubin 1.6 H (0.2-1.3) mg/dL Total Protein 6.0 L (6.3-8.2) g/dL Albumin (3.5-5.0) g/dL SARS-CoV-2 (PCR) Detected A (Not Detectd) 02/12/24 02/12/24 Range/Units 05:21 05:21 WBC (3.8-10.6) k/uL RBC 4.09 L (4.30-5.90) m/uL Neutrophils # (1.3-7.7) k/uL Lymphocytes # 0.5 L (1.0-4.8) k/uL Sodium 133 L (137-145) mmol/L BUN 23 H (9-20) mg/dL Calcium 8.2 L (8.4-10.2) mg/dL Total Bilirubin 1.5 H (0.2-1.3) mg/dL Total Protein 5.3 L (6.3-8.2) g/dL Albumin 3.1 L (3.5-5.0) g/dL SARS-CoV-2 (PCR) (Not Detectd)
[2024-02-12 12:04] VITALS: RESP 18
--- NOTE | 2024-02-12 13:13 | P.CRDCN ---
History of Present Illness Consult date: 02/12/24 Reason for Consult (text): Symptomatic bradycardia History of present illness: This is an 83-year-old male patient with past medical history of chronic atrial fibrillation on Eliquis, hypertension, hyperlipidemia, ischemic cardiomyopathy, CAD status post PCI in 2017. Patient follows with a floor waxer in [place]. Patient has not had a previous ablation or cardioversion in the past. We have been asked to evaluate the patient for symptomatic bradycardia. Patient presented to the hospital due to shortness of breath and cough and a little dizziness. He denies having palpitations. He does complain of lower extremity edema. He denies chest pain. He denies nausea or vomiting. No blood in his stools. He denies history of stroke or seizure. He is not normally very active. Patient did test positive for COVID. Patient has been started on Cardizem drip last evening. Blood pressure 133/72, heart rate 105, pulse ox 97% on 2 L nasal cannula. Patient states that he is feeling well this morning. -EKG: Atrial fibrillation at 110 bpm -Chest x-ray: Mild cardiomegaly. No acute process. -Laboratory studies: WBC 8.3, initial WBC 11, hemoglobin 13.4. Sodium 133, potassium 4.2, BUN 23 creatinine 0.72. Troponin negative x 1. proBNP 2350. Procalcitonin 0.08. Recent TSH 0.474 done on 02/04/2024 -Home cardiac medications: Eliquis 5 mg twice daily, atorvastatin 40 mg at bedtime, digoxin 125 mcg daily, Lasix 20 mg as needed, losartan 12.5 mg daily, Toprol XL 25 mg daily, Aldactone 12.5 mg daily. -Echocardiogram performed 02/04/2024 reveals EF of 35 to 40%, dilated left atrium, mild mitral and tricuspid regurgitation. Review Of Systems: At the time of my exam: CONSTITUTIONAL: Denies fever or chills. HEENT: Denies blurred vision, vision changes, or eye pain. Denies hemoptysis CARDIOVASCULAR: Denies chest pain. Denies orthopnea. Denies PND. Denies palpitations RESPIRATORY: Reports cough and shortness of breath. GASTROINTESTINAL: Denies abdominal pain. Denies nausea or vomiting. HEMATOLOGIC: Denies bleeding disorders. GENITOURINARY: Denies any blood in urine. SKIN: Denies puritis. Denies rash. Physical examination: Gen: This is an 83-year-old male in no acute distress VS: reviewed HEENT: Head is atraumatic, normocephalic. Pupils equal, round. Sclerae is anicteric. NECK: Supple. No JVD. LUNGS: Clear to auscultation. No wheezes or rhonchi. No intercostal retractions. HEART: Irregular rate and rhythm. ABDOMEN: Soft No tenderness. EXTREMITIES: Mild bilateral lower extremity edema. No calf tenderness. NEUROLOGICAL: Patient is awake, alert and oriented x3. Assessment: COVID-19 Chronic A-fib with RVR No evidence of bradycardia Hypertension Hyperlipidemia Ischemic cardiomyopathy CAD status post PCI in 2016 Plan: Resume patient's home cardiac medications Discontinue Cardizem drip Increase Toprol XL 25 mg to frequency of twice daily Start patient on Farxiga 10 mg daily Change IV Lasix to 20 mg daily No need to repeat echocardiogram as this was done in January Repeat BMP in the morning Further recommendations to follow based upon clinical course Thank you kindly for this consultation. Nurse practitioner note has been reviewed, I agree with documented findings and plan of care. Patient was seen and examined. Past Medical History Past Medical History: Atrial Fibrillation History of Any Multi-Drug Resistant Organisms: None Reported Past Surgical History: Heart Catheterization With Stent Additional Past Surgical History / Comment(s): heart cath 2016 Past Anesthesia/Blood Transfusion Reactions: No Reported Reaction Date of Last Stent Placement:: 2016 Past Psychological History: No Psychological Hx Reported Smoking Status: Former smoker Past Alcohol Use History: None Reported Past Drug Use History: None Reported Medications and Allergies Home Medications Medication Instructions Recorded Confirmed Type Apixaban [Eliquis] 5 mg PO BID 02/03/24 02/11/24 History Atorvastatin [Lipitor] 40 mg PO HS 02/03/24 02/11/24 History Furosemide [Lasix] 20 mg PO DAILY PRN 02/03/24 02/11/24 History Tamsulosin [Flomax] 0.4 mg PO HS 02/03/24 02/11/24 History predniSONE 20 mg PO DAILY 02/03/24 02/11/24 History Digoxin [Lanoxin] 125 mcg PO DAILY #30 tablet 02/06/24 02/11/24 Rx Losartan [Cozaar] 12.5 mg PO DAILY #30 tab 02/06/24 02/11/24 Rx Metoprolol Succinate (ER) [Toprol 25 mg PO DAILY #30 tab 02/06/24 02/11/24 Rx XL] Spironolactone [Aldactone] 12.5 mg PO DAILY #30 tab 02/06/24 02/11/24 Rx Allergies Allergy/AdvReac Type Severity Reaction Status Date / Time itraconazole [From Sporanox] Allergy Rash/Hives Verified 02/11/24 14:37 Physical Exam Vitals: Vital Signs Temp Pulse Pulse Resp BP BP Pulse Ox 02/12/24 03:47 98 F 112 H 16 133/72 95 02/11/24 23:26 97.6 F 121 H 17 111/67 95 02/11/24 20:35 98.9 F 111 H 16 125/66 97 02/11/24 20:08 99.4 F 101 H 18 105/83 95 02/11/24 15:30 93 16 94/65 97 02/11/24 15:00 98 18 106/66 100 02/11/24 14:20 88 20 99/71 97 02/11/24 13:05 52 L 18 117/70 97 02/11/24 12:18 51 L 20 89/54 97 02/11/24 11:56 18 02/11/24 11:35 51 L 18 94/54 96 02/11/24 10:12 97.8 F 76 20 103/68 97 Intake and Output 02/11/24 02/12/24 02/12/24 22:59 06:59 14:59 Output Total 300 Balance -300 Output: Urine 300 Other: Voiding Method Urinal Urinal Weight 80.739 kg 55 kg Results 02/12/24 05:21 02/12/24 05:21 Cardiac Enzymes 02/11/24 02/11/24 02/12/24 Range/Units 11:12 11:12 05:21 AST 28 35 (17-59) U/L Troponin I 0.019 (0.000-0.034) ng/mL Coagulation 02/11/24 Range/Units 11:12 PT 11.9 (10.0-12.5) sec APTT 22.1 (22.0-30.0) sec CBC 02/11/24 02/12/24 Range/Units 11:12 05:21 WBC 11.0 H 8.3 (3.8-10.6) k/uL RBC 4.54 4.09 L (4.30-5.90) m/uL Hgb 14.7 13.4 (13.0-17.5) gm/dL Hct 44.3 40.1 (39.0-53.0) % Plt Count 204 169 (150-450) k/uL Comprehensive Metabolic Panel 02/11/24 02/12/24 Range/Units 11:12 05:21 Sodium 139 133 L (137-145) mmol/L Potassium 3.9 4.2 (3.5-5.1) mmol/L Chloride 103 99 (98-107) mmol/L Carbon Dioxide 28 28 (22-30) mmol/L BUN 27 H 23 H (9-20) mg/dL Creatinine 0.79 0.72 (0.66-1.25) mg/dL Glucose 96 84 (74-99) mg/dL Calcium 9.2 8.2 L (8.4-10.2) mg/dL AST 28 35 (17-59) U/L ALT 27 22 (4-49) U/L Alkaline Phosphatase 83 69 (38-126) U/L Total Protein 6.0 L 5.3 L (6.3-8.2) g/dL Albumin 3.7 3.1 L (3.5-5.0) g/dL Current Medications Generic Name Dose Route Start Last Admin Trade Name Freq PRN Reason Stop Dose Admin Acetaminophen 650 mg 02/11/24 13:51 02/11/24 21:05 Acetaminophen Tab 325 Mg Tab PO 650 mg Q6HR PRN Administration Mild Pain or Fever > 100.5 Hydrocodone Bitart/Acetaminophen 1 each 02/11/24 13:51 Hydrocodone/Apap 5-325mg 1 Each Tab PO Q4HR PRN Moderate Pain (Scale 4 to 6) Albuterol Sulfate 2 puff 02/11/24 12:51 Albuterol Hfa Inhaler INHALATION RT-Q6H PRN Shortness Of Breath Or Wheezing Albuterol Sulfate 2 puff 02/12/24 08:00 02/12/24 07:52 Albuterol Hfa Inhaler INHALATION 2 puff RT-TID NISSA Administration Apixaban 5 mg 02/11/24 21:00 02/12/24 07:59 Apixaban 5 Mg Tab PO 5 mg BID NISSA Administration Protocol Atorvastatin Calcium 40 mg 02/11/24 21:00 02/11/24 21:05 Atorvastatin 40 Mg Tab PO 40 mg HS NISSA Administration Guaifenesin 600 mg 02/11/24 14:30 02/12/24 07:59 Guaifenesin 600 Mg Tablet.Er PO 600 mg Q12HR NISSA Administration Guaifenesin/Codeine Phosphate 10 ml 02/11/24 14:18 Guaifenesin-Coden 100-10mg/5ml 10 Ml Cup PO Q6HR PRN Cough Cefazolin Sodium 2 gm/ Sodium 50 mls @ 100 mls/hr 02/11/24 16:00 02/12/24 08:20 Chloride IVPB 100 mls/hr Q8HR NISSA Administration Protocol Diltiazem HCl 125 mg/ Sodium 125 mls @ 5 mls/hr 02/11/24 22:45 02/11/24 22:51 Chloride IV 5 mg/hr .Q24H NISSA 5 mls/hr Administration 5 MG/HR Metoprolol Succinate 25 mg 02/12/24 09:00 02/12/24 07:59 Metoprolol Succinate (Er) 25 Mg Tab.Er.24h PO 25 mg DAILY NISSA Administration Morphine Sulfate 4 mg 02/11/24 13:51 Morphine Sulfate 4 Mg/Ml Syringe IV Q4HR PRN Severe Pain (Scale 7 to 10) Naloxone HCl 0.2 mg 02/11/24 13:51 Naloxone 0.4 Mg/Ml 1 Ml Vial IV Q2M PRN Opioid Reversal Ondansetron HCl 4 mg 02/11/24 13:51 Ondansetron 4 Mg/2 Ml Vial IVP Q8HR PRN Nausea And Vomiting Pantoprazole Sodium 40 mg 02/12/24 09:00 02/12/24 07:58 Pantoprazole 40 Mg/10 Ml Vial IV 40 mg DAILY NISSA Administration Spironolactone 12.5 mg 02/12/24 09:00 02/12/24 07:59 Spironolactone 25 Mg Tab PO 12.5 mg DAILY NISSA Administration Tamsulosin HCl 0.4 mg 02/11/24 21:00 02/11/24 21:05 Tamsulosin 0.4 Mg Cap.Er.24h PO 0.4 mg HS NISSA Administration Intake and Output 02/11/24 02/12/24 02/12/24 22:59 06:59 14:59 Output Total 300 Balance -300 Output: Urine 300 Other: Voiding Method Urinal Urinal Weight 80.739 kg 55 kg 02/12/24 05:21 02/12/24 05:21
[2024-02-13 08:25] LABS: HCT 41.9 % (39.0-53.0); Hypochromasia Slight; MCH 31.5 pg (25.0-35.0); MCHC 30.9 g/dL (31.0-37.0); MCV 101.8 fL (80.0-100.0); Macrocytosis Slight; Mean Platelet Volume 8.4; Platelet Count 142 k/uL (150-450); RBC 4.11 m/uL (4.30-5.90); RDW 13.4 % (11.5-15.5); WBC 7.6 k/uL (3.8-10.6)
[2024-02-13 08:40] LABS: African American GFR (CKD) >90 (>60 ml/min/1.73 sqM); Anion Gap 5 mmol/L; Blood Urea Nitrogen 19 mg/dL (9-20); Calcium 8.1 mg/dL (8.4-10.2); Carbon Dioxide 29 mmol/L (22-30); Chloride 102 mmol/L (98-107); Glucose 83 mg/dL (74-99); Non-African American GFR(CKD) 87 (>60 ml/min/1.73 sqM); Potassium 4.1 mmol/L (3.5-5.1); Sodium 136 mmol/L (137-145)
--- NOTE | 2024-02-13 12:18 | P.PN ---
Subjective Progress Note Date: 02/13/24 Principal diagnosis: Hospital course: Patient 83-year-old gentleman with past medical history significant for coronary disease, atrial fibrillation, ischemic cardiomyopathy presented the ER because of shortness of breath and cough. Patient was discharged from the hospital recently after being treated for pneumonia, patient completed course of antibiotics at home. Patient stated that yesterday evening he started noticing worsening shortness of breath, also complaining of cough at the time. Patient stated that the cough was very severe and was making it hard to catch his b reath. There was no complaint of chest pain. There is no complaint of orthopnea or PND. Patient was complaining of swelling of lower extremity, right more than left with increasing pain in right lower extremity. Patient is complaining of abdominal pain. There is no current nausea or vomiting. Because of the symptoms, patient presented the ED Initial lab work done in the ER showed showed WBC 11, hemoglobin 14.7, platelet count 204, sodium 139, potassium 3.3, BUN 27, creatinine 0.79, calcium 9.2, magnesium 1.8, bili 1.6, troponin 0.019, proBNP 2350 Influenza A not detected Influenza B not detected RSV not detected COVID-19 detected EKG done in the ER showed heart rate of 110, no ST segment elevation or depression seen, no T-wave inversions seen. Chest x-ray done in the ER showed mild cardiomegaly, no acute cardiology process Patient admitted to internal medicine service 02/12/24: Patient seen and examined today at bedside. Patient is currently saturating at 97% on 2L of oxygen via nasal cannula and pulse is 105 bpm. Labs today show WBC 8.3, hemoglobin 13.4, sodium 133, BUN 23, total bilirubin 1.5. Procalcitonin 0.08, ESR is 2 and CRP is 3.6 02/13/24: Patient evaluated at bedside. Patient continues to be on 2L of oxygen via nasal cannula. Labs today show hemoglobin 13, sodium 136, creatinine 0.70. UA shows 1+ glucose, trace blood, rare mucus. Blood culture shows no growth at 24 hours. PT and OT recommends postacute rehab due to level of debility and level of assist required for basic task completion, high fall risk for discharge to home setting. Review of systems: Pertinent positives and negatives as discussed in HPI, a complete review of systems was performed and all other systems are negative. Vitals: Signs Reviewed Physical examination: General: nontoxic, no distress, appears at stated age Derm: warm, dry, intact Head: atraumatic, normocephalic, symmetric Eyes: EOMI, anicteric sclera Mouth: no lip lesion, mucus membranes moist Cardiovascular: S1 S2 reg, no murmur Lungs: CTA bilateral, no rhonchi, no rales, no accessory muscle use Abdominal: soft, non-tender to palpataion Extremities: 1+ pitting edema of the LE b/l, left LE erythema, No cyanosis, clubbing Neuro: Alert, Oriented, Gross neurological examination did not reveal any focal deficits. Psych: well appearing, appropriate affect Assessment/Plan: Patient is a 83 year old male with past medical history of atrial fibrillation and heart catheterisation with stent placement in 2017 presented to the ED with shortness of breath. and productive cough along with bilateral lower extremity e vanessa. He has been admitted for bilateral lower extremity cellulitis, acute hypoxic respiratory failure, COVID-19 pneumonia. PT and OT recommends postacute rehab. Active: #. Acute hypoxic respiratory failure #. Ischemic cardiomyopathy with EF 35 to 40% #. Covid-19 penumonia proBNP 2350 Chest x-ray shows mild cardiomegaly, no acute cardiopulmonary disease Continue supplemental oxygen, currently on 2 L oxygen via nasal cannula Continue albuterol inhaler 2 puffs every 6 hours as needed and 3 times daily, guaifenesin 10 mL p.o. every 6 hours as needed, guaifenesin 600 mg p.o. every 12 hours, ascorbic acid 1000 mg p.o. daily, zinc sulfate to 20 mg p.o. daily Continue metoprolol 25 mg p.o. twice daily, losartan 12.5 mg p.o. daily, spironolactone 5 mg p.o. daily, furosemide 20 mg IV daily, Dapagliflozin 10 mg p.o. daily Obtain sputum culture Encourage to use Incentive spirometer Q1HR Cardiology is following #. Bilateral lower extremity cellulitis CRP is 3.6, ESR is 2 Continue Cefazolin 2gm Q8HR Obtain blood culture ID is following #. Nausea and vomiting Continue Zofran 4 mg IV every 8 hours as needed #. Bradycardia, resolved #. Hypotension, resolved Chronic: #. Permanent atrial fibrillation with rapid ventricular response #. History of CAD s/p PCI in 2017 #. Suspected PAD #. Former nicotine dependence #. BPH #. Chronic compression fracture of T12-L1 Continue Eliquis 5 mg p.o. twice daily, metoprolol 25 mg p.o. twice daily, atorvastatin 40 mg p.o. at bedtime, losartan 12.5 mg p.o. daily, spironolactone 12.5 mg p.o. daily, tamsulosin 0.4 mg p.o. at bedtime, dapagliflozin 10 mg p.o. daily F: None E: Replete as required N: Heart healthy diet DVT prophylaxis: Eliquis 5 mg p.o. twice daily GI prophylaxis: Pantoprazole 40 mg IV daily Attestation I have seen and examined this patient with my resident , discussed the same with the resident/TRACI, and agree with the dictator's assessment and plan as written Dr. Jeff dias Objective - Vital Signs Vital signs: Vital Signs Temp 97.4 F L 02/13/24 03:07 Pulse 73 02/13/24 03:07 Resp 18 02/13/24 03:07 BP 100/56 02/13/24 03:07 Pulse Ox 99 02/13/24 03:07 FiO2 Intake & Output 02/12/24 02/13/24 02/13/24 18:59 06:59 18:59 Intake Total 820 100 Output Total 1350 450 Balance -530 -350 Weight 55 kg 62.5 kg Intake: IV 100 ceFAZolin 2 gm In Sodium 100 Chloride 0.9% 50 ml @ 100 mls/hr IVPB Q8HR [facility] Rx# :[id number] Oral 820 Output: Urine 1350 450 Other: Voiding Method Urinal Urinal # Voids 1 - Labs CBC & Chem 7: 02/14/24 08:07 02/14/24 08:07 Labs: Abnormal Lab Results - Last 24 Hours (Table) 02/12/24 02/12/24 Range/Units 05:21 11:29 C-Reactive Protein 3.6 H (<1.0) mg/dL Urine Glucose (UA) 1+ H (Negative) Urine Blood Trace H (Negative) Urine Mucus Rare H (None) /hpf Microbiology - Last 24 Hours (Table) 02/11/24 15:24 Blood Culture - Preliminary Blood 02/11/24 14:38 Blood Culture - Preliminary Blood 02/11/24 14:03 Gram Stain - Preliminary Sputum Sputum Culture - Preliminary
--- NOTE | 2024-02-13 13:26 | P.PN ---
Subjective HISTORY OF PRESENT ILLNESS: This is an 83-year-old male patient with past medical history of chronic atrial fibrillation on Eliquis, hypertension, hyperlipidemia, ischemic cardiomyopathy, CAD status post PCI in 2017. Patient follows with a [employer] in [place]. Patient has not had a previous ablation or cardioversion in the past. We have joseph peace asked to evaluate the patient for symptomatic bradycardia. Patient presented to the hospital due to shortness of breath and cough and a little dizziness. He denies having palpitations. He does complain of lower extremity edema. He denies chest pain. He denies nausea or vomiting. No blood in his stools. He denies history of stroke or seizure. He is not normally very active. Patient did test positive for COVID. Patient has been started on Cardizem drip last evening. Blood pressure 133/72, heart rate 105, pulse ox 97% on 2 L nasal cannula. Patient states that he is feeling well this morning. -EKG: Atrial fibrillation at 110 bpm -Chest x-ray: Mild cardiomegaly. No acute process. -Laboratory studies: WBC 8.3, initial WBC 11, hemoglobin 13.4. Sodium 133, potassium 4.2, BUN 23 creatinine 0.72. Troponin negative x 1. proBNP 2350. Procalcitonin 0.08. Recent TSH 0.474 done on 02/04/2024 -Home cardiac medications: Eliquis 5 mg twice daily, atorvastatin 40 mg at bedtime, digoxin 125 mcg daily, Lasix 20 mg as needed, losartan 12.5 mg daily, Toprol XL 25 mg daily, Aldactone 12.5 mg daily. -Echocardiogram performed 02/04/2024 reveals EF of 35 to 40%, dilated left atrium, mild mitral and tricuspid regurgitation. 02/13/2024 Patient examined this morning. Patient is sitting up in the chair. Patient currently denies chest pain or pressure. He reports improvement in his sh ortness of breath. He continues to have a cough upon examination. He continues to have lower extremity edema although improving. He remains on IV Lasix. PHYSICAL EXAM: VITAL SIGNS: Reviewed. GENERAL: Well-developed in no acute distress. NECK: Supple. No JVD or thyromegaly LUNGS: Respirations even and unlabored. Lungs essentially clear to auscultation bilaterally. HEART: Irregular rate and rhythm. S1 and S2 heard. EXTREMITIES: Normal range of motion. No clubbing or cyanosis. Peripheral p ulses intact. Trace bilateral lower extremity edema ASSESSMENT: COVID-19 Permanent A-fib with RVR No evidence of bradycardia Hypertension Hyperlipidemia Ischemic cardiomyopathy CAD status post PCI in 2016 PLAN: No need to repeat echocardiogram as this was performed in January 2024 Continue current cardiac medications Continue IV Lasix for additional 24 hours. Anticipate transition to oral d iuretics tomorrow Daily weights, accurate intake and output, and monitoring of kidney function Further recommendations pending patient course Nurse practitioner note has been reviewed by physician. Signing provider agrees with the documented findings, assessment, and plan of care documented by INDUST[employer] TE[employer]ER as a scribe. Objective - Vital Signs Vital signs: Vital Signs Temp 97.8 F 02/13/24 08:00 Pulse 73 02/13/24 12:00 Resp 18 02/13/24 12:00 BP 88/53 02/13/24 12:00 Pulse Ox 95 02/13/24 12:00 FiO2 1 02/13/24 08:16 Intake & Output 02/12/24 02/13/24 02/13/24 18:59 06:59 18:59 Intake Total 820 100 100 Output Total 1350 450 600 Balance -530 -350 -500 Weight 55 kg 62.5 kg Intake: IV 100 ceFAZolin 2 gm In Sodium 100 Chloride 0.9% 50 ml @ 100 mls/hr IVPB Q8HR [facility] Rx# :[id number] Oral 820 100 Output: Urine 1350 450 600 Other: Voiding Method Urinal Urinal # Voids 1 1 # Bowel Movements 1 - Labs CBC & Chem 7: 02/13/24 07:11 02/13/24 07:11 Labs: Abnormal Lab Results - Last 24 Hours (Table) 02/13/24 02/13/24 Range/Units 07:11 07:11 RBC 4.11 L (4.30-5.90) m/uL MCV 101.8 H (80.0-100.0) fL MCHC 30.9 L (31.0-37.0) g/dL Plt Count 142 L (150-450) k/uL Sodium 136 L (137-145) mmol/L Calcium 8.1 L (8.4-10.2) mg/dL Microbiology - Last 24 Hours (Table) 02/11/24 14:03 Gram Stain - Final Sputum Sputum Culture - Final 02/11/24 15:24 Blood Culture - Preliminary Blood 02/11/24 14:38 Blood Culture - Preliminary Blood
--- NOTE | 2024-02-13 15:21 | P.PN ---
Subjective Progress Note Date: 02/13/24 Principal diagnosis: Reason for follow-up is COVID-19 and lower extremity cellulitis Patient is a 83-year-old male with a past medical history significant for atrial fibrillation coronary disease status post PTCA stent former smoker presented to hospital for evaluation of increasing shortness of breath and cough patient tested positive for COVID-19 chest x-ray did not show any acute cardiopulmonary disease did have some swelling and redness of the leg concern for possible cellulitis On today's evaluation that is 02/13/2024, patient did not have any fever and denies any chills, patient is breathing comfortably on room air, patient with no chest pain cough is decreased intensity mostly dry, patient did not have any abdominal pain nausea vomiting or any loose stools. Patient white count 7.6 creatinine 0.70 Objective - Vital Signs Vital signs: Vital Signs Temp 97.8 F 02/13/24 08:00 Pulse 73 02/13/24 12:00 Resp 18 02/13/24 12:00 BP 88/53 02/13/24 12:00 Pulse Ox 95 02/13/24 12:00 FiO2 1 02/13/24 08:16 Intake & Output 02/12/24 02/13/24 02/13/24 18:59 06:59 18:59 Intake Total 820 100 100 Output Total 1350 450 600 Balance -530 -350 -500 Weight 55 kg 62.5 kg Intake: IV 100 ceFAZolin 2 gm In Sodium 100 Chloride 0.9% 50 ml @ 100 mls/hr IVPB Q8HR [facility] Rx# :[id number] Oral 820 100 Output: Urine 1350 450 600 Other: Voiding Method Urinal Urinal # Voids 1 1 # Bowel Movements 1 - Exam GENERAL DESCRIPTION: An elderly female lying in bed in no distress RESPIRATORY SYSTEM: Unlabored breathing , decreased breath sounds at bases HEART: S1 S2 regular rate and rhythm , ABDOMEN: Soft , no tenderness EXTREMITIES: Lower extremity swelling redness has decreased - Labs CBC & Chem 7: 02/13/24 07:11 02/13/24 07:11 Labs: Abnormal Lab Results - Last 24 Hours (Table) 02/13/24 02/13/24 Range/Units 07:11 07:11 RBC 4.11 L (4.30-5.90) m/uL MCV 101.8 H (80.0-100.0) fL MCHC 30.9 L (31.0-37.0) g/dL Plt Count 142 L (150-450) k/uL Sodium 136 L (137-145) mmol/L Calcium 8.1 L (8.4-10.2) mg/dL Microbiology - Last 24 Hours (Table) 02/11/24 14:03 Gram Stain - Final Sputum Sputum Culture - Final 02/11/24 15:24 Blood Culture - Preliminary Blood 02/11/24 14:38 Blood Culture - Preliminary Blood Assessment and Plan (1) Bilateral lower leg cellulitis Current Visit: Yes Status: Acute Code(s): L03.116 - CELLULITIS OF LEFT LOWER LIMB; L03.115 - CELLULITIS OF RIGHT LOWER LIMB SNOMED Code(s): 664940574 (2) COVID-19 Current Visit: Yes Status: Acute Code(s): U07.1 - COVID-19 SNOMED Code(s): 884964854 Plan: 1patient presenting to the hospital with increasing cough shortness of breath in this patient who did tested positive for COVID-19 patient however is not hypoxic no need for supplemental oxygen chest x-ray has been negative for any acute infiltrate did will be mostly supportive 2-patient did have improvement to the lower extremity swelling and redness we will continue cefazolin short course of oral Keflex on discharge Dictation was produced using [employer] dictation software. please excuse any grammatical, word or spelling errors. Time with Patient: Less than 30
--- NOTE | 2024-02-13 15:21 | P.PN ---
Subjective Progress Note Date: 02/12/24 Principal diagnosis: Reason for follow-up is COVID-19 and lower extremity cellulitis Patient is a 83-year-old male with a past medical history significant for atrial fibrillation coronary disease status post PTCA stent former smoker presented to hospital for evaluation of increasing shortness of breath and cough patient tested positive for COVID-19 chest x-ray did not show any acute cardiopulmonary disease did have some swelling and redness of the leg concern for possible cellulitis On today's evaluation that is 02/12/2024, the patient continues to be afebrile, the patient is on r 2 L nasal oxygen and breathing comfortably, the Pt denies having any chest pain or any worsening cough, the patient denies having any abdominal pain no vomiting or any diarrhea has been reported by the nursing staff. Denies pain to the lower extremity Patient white count is 8.3 creatinine 0.72 urine has been negative Objective - Vital Signs Vital signs: Vital Signs Temp 98.8 F 02/12/24 08:00 Pulse 96 02/12/24 12:00 Resp 18 02/12/24 12:00 BP 123/71 02/12/24 12:00 Pulse Ox 95 02/12/24 12:00 FiO2 Intake & Output 02/11/24 02/12/24 02/12/24 18:59 06:59 18:59 Intake Total 480 Output Total 300 650 Balance -300 -170 Weight 80.739 kg 55 kg 55 kg Intake: Oral 480 Output: Urine 300 650 Other: Voiding Method Urinal Urinal # Voids 3 - Exam GENERAL DESCRIPTION: An elderly female lying in bed in no distress RESPIRATORY SYSTEM: Unlabored breathing , decreased breath sounds at bases HEART: S1 S2 regular rate and rhythm , ABDOMEN: Soft , no tenderness EXTREMITIES: Lower extremity swelling redness has decreased - Labs CBC & Chem 7: 02/13/24 07:11 02/13/24 07:11 Labs: Abnormal Lab Results - Last 24 Hours (Table) 02/12/24 02/12/24 02/12/24 Range/Units 05:21 05:21 05:21 RBC 4.09 L (4.30-5.90) m/uL Lymphocytes # 0.5 L (1.0-4.8) k/uL Sodium 133 L (137-145) mmol/L BUN 23 H (9-20) mg/dL Calcium 8.2 L (8.4-10.2) mg/dL Total Bilirubin 1.5 H (0.2-1.3) mg/dL C-Reactive Protein 3.6 H (<1.0) mg/dL Total Protein 5.3 L (6.3-8.2) g/dL Albumin 3.1 L (3.5-5.0) g/dL Urine Glucose (UA) (Negative) Urine Blood (Negative) Urine Mucus (None) /hpf 02/12/24 Range/Units 11:29 RBC (4.30-5.90) m/uL Lymphocytes # (1.0-4.8) k/uL Sodium (137-145) mmol/L BUN (9-20) mg/dL Calcium (8.4-10.2) mg/dL Total Bilirubin (0.2-1.3) mg/dL C-Reactive Protein (<1.0) mg/dL Total Protein (6.3-8.2) g/dL Albumin (3.5-5.0) g/dL Urine Glucose (UA) 1+ H (Negative) Urine Blood Trace H (Negative) Urine Mucus Rare H (None) /hpf Microbiology - Last 24 Hours (Table) 02/11/24 14:03 Gram Stain - Preliminary Sputum Sputum Culture - Preliminary Assessment and Plan (1) Bilateral lower leg cellulitis Current Visit: Yes Status: Acute Code(s): L03.116 - CELLULITIS OF LEFT LOWER LIMB; L03.115 - CELLULITIS OF RIGHT LOWER LIMB SNOMED Code(s): 651176996 (2) COVID-19 Current Visit: Yes Status: Acute Code(s): U07.1 - COVID-19 SNOMED Code(s): 976396173 Plan: 1patient presenting to the hospital with increasing cough shortness of breath in this patient who did tested positive for COVID-19 patient however is not hypoxic no need for supplemental oxygen chest x-ray has been negative for any acute infiltrate did will be mostly supportive 2-patient did have swelling and some redness lower extremity concerning for cellulitis likely from gram-positive skin celso 3-patient to l continue the patient cefazolin 2 g every 8 hours and monitor clinical course closely Dictation was produced using [employer] software. please excuse any grammatical, word or spelling errors. Time with Patient: Less than 30
[2024-02-13 20:16] LABS: Glucose,Whole Blood 123 mg/dL (70-110)
[2024-02-14 07:52] VITALS: BP 105/83; PULSE 71; TEMP 97.9
[2024-02-14 08:29] LABS: HCT 40.4 % (39.0-53.0); HGB 13.5 gm/dL (13.0-17.5); MCHC 33.3 g/dL (31.0-37.0); MCV 99.1 fL (80.0-100.0); Platelet Count 171 k/uL (150-450); RBC 4.08 m/uL (4.30-5.90); RDW 13.5 % (11.5-15.5); WBC 7.8 k/uL (3.8-10.6)
[2024-02-14 08:56] LABS: African American GFR (CKD) >90 (>60 ml/min/1.73 sqM); Anion Gap 6 mmol/L; Blood Urea Nitrogen 24 mg/dL (9-20); Calcium 8.3 mg/dL (8.4-10.2); Carbon Dioxide 29 mmol/L (22-30); Chloride 101 mmol/L (98-107); Glucose 99 mg/dL (74-99); Non-African American GFR(CKD) 83 (>60 ml/min/1.73 sqM); Potassium 3.7 mmol/L (3.5-5.1); Sodium 136 mmol/L (137-145)
--- NOTE | 2024-02-14 12:24 | P.DS ---
Providers Date of admission: 02/11/24 13:55 Expected date of discharge: 02/14/24 Attending physician: Jeff Brooks MD Consults: 02/11/24 13:51 Consult Physician Urgent Consulting Provider: Shaun Roy Consult Reason/Comments: Symptomatic bradycardia Do you want consulting provider notified?: Yes 02/11/24 14:10 Consult Physician Routine Consulting Provider: Mireya Chaves Consult Reason/Comments: Right lower extremity cellulitis Do you want consulting provider notified?: Yes Primary care physician: Savana Galicia Hospital Course: Discharge diagnoses; #. Acute hypoxic respiratory failure #. Ischemic cardiomyopathy with EF 35 to 40% #. Covid-19 penumonia proBNP 2350 Chest x-ray shows mild cardiomegaly, no acute cardiopulmonary disease Continue supplemental oxygen, currently on 2 L oxygen via nasal cannula Continue albuterol inhaler 2 puffs every 6 hours as needed and 3 times daily, guaifenesin 10 mL p.o. every 6 hours as needed, guaifenesin 600 mg p.o. every 12 hours, ascorbic acid 1000 mg p.o. daily, zinc sulfate to 20 mg p.o. daily Continue metoprolol 25 mg p.o. twice daily, losartan 12.5 mg p.o. daily, spironolactone 5 mg p.o. daily, furosemide 20 mg IV daily, Dapagliflozin 10 mg p.o. daily Obtain sputum culture Encourage to use Incentive spirometer Q1HR Cardiology is following 02/13. Being discharged on Lasix 20 mg daily and Toprol 25 twice a day and Farxiga. #. Bilateral lower extremity cellulitis CRP is 3.6, ESR is 2 Continue Cefazolin 2gm Q8HR Obtain blood culture ID is following 02/13. Being discharged on Keflex for 5 days #. Nausea and vomiting Continue Zofran 4 mg IV every 8 hours as needed #. Bradycardia, resolved #. Hypotension, resolved Chronic: #. Permanent atrial fibrillation with rapid ventricular response #. History of CAD s/p PCI in 2017 #. Suspected PAD #. Former nicotine dependence #. BPH #. Chronic compression fracture of T12-L1 Hospital course; Patient 83-year-old gentleman with past medical history significant for coronary disease, atrial fibrillation, ischemic cardiomyopathy presented the ER because of shortness of breath and cough. Patient was discharged from the hospital recently after being treated for pneumonia, patient completed course of antibiotics at home. Patient stated that yesterday evening he started noticing worsening shortness of breath, also complaining of cough at the time. Patient stated that the cough was very severe and was making it hard to catch his breath. There was no complaint of chest pain. There is no complaint of orthopnea or PND. Patient was complaining of swelling of lower extremity, right more than left with increasing pain in right lower extremity. Patient is complaining of abdominal pain. There is no current nausea or vomiting. Because of the symptoms, patient presented the ED Initial lab work done in the ER showed showed WBC 11, hemoglobin 14.7, platelet count 204, sodium 139, potassium 3.3, BUN 27, creatinine 0.79, calcium 9.2, magnesium 1.8, bili 1.6, troponin 0.019, proBNP 2350 Influenza A not detected Influenza B not detected RSV not detected COVID-19 detected EKG done in the ER showed heart rate of 110, no ST segment elevation or depression seen, no T-wave inversions seen. Chest x-ray done in the ER showed mild cardiomegaly, no acute cardiology process Patient admitted to internal medicine service 02/12/24: Patient seen and examined today at bedside. Patient is currently saturating at 97% on 2L of oxygen via nasal cannula and pulse is 105 bpm. Labs today show WBC 8.3, hemoglobin 13.4, sodium 133, BUN 23, total bilirubin 1.5. Procalcitonin 0.08, ESR is 2 and CRP is 3.6 02/13/24: Patient evaluated at bedside. Patient continues to be on 2L of oxygen via nasal cannula. Labs today show hemoglobin 13, sodium 136, creatinine 0.70. UA shows 1+ glucose, trace blood, rare mucus. Blood culture shows no growth at 24 hours. PT and OT recommends postacute rehab due to level of debility and level of assist required for basic task completion, high fall risk for discharge to home setting. 02/13. Patient seen and examined. Patient at this time is refusing rehab, wants to discharge home. Being discharged on Keflex for 5 days. Cardiology cleared the patient for discharge PHYSICAL EXAMINATION: GENERAL: The patient is alert and oriented x3, not in any acute distress. Well developed, well nourished. HEENT: Pupils are round and equally reacting to light. EOMI. No scleral icterus. No conjunctival pallor. Normocephalic, atraumatic. No pharyngeal erythema. No thyromegaly. CARDIOVASCULAR: S1 and S2 present. No murmurs, rubs, or gallops. PULMONARY: Chest is clear to auscultation, no wheezing or crackles. ABDOMEN: Soft, nontender, nondistended, normoactive bowel sounds. No palpable organomegaly. MUSCULOSKELETAL: No joint swelling or deformity. EXTREMITIES: No cyanosis, clubbing, or pedal edema. NEUROLOGICAL: Gross neurological examination did not reveal any focal deficits. SKIN: No rashes. Dictation was produced using [employer] dictation software. please excuse any grammatical, word or spelling errors. Patient Condition at Discharge: Fair Plan - Discharge Summary Discharge Rx Participant: No New Discharge Prescriptions: New Dapagliflozin Propanediol [Farxiga] 10 mg PO DAILY 30 Days #30 tab Cephalexin [Keflex] 500 mg PO Q8HR 5 Days #15 cap Metoprolol Succinate (ER) [Toprol XL] 25 mg PO BID 30 Days #60 tab Continue predniSONE 20 mg PO DAILY Tamsulosin [Flomax] 0.4 mg PO HS Atorvastatin [Lipitor] 40 mg PO HS Spironolactone [Aldactone] 12.5 mg PO DAILY #30 tab Losartan [Cozaar] 12.5 mg PO DAILY #30 tab Furosemide [Lasix] 20 mg PO DAILY PRN PRN Reason: Edema Apixaban [Eliquis] 5 mg PO BID Discontinued Digoxin [Lanoxin] 125 mcg PO DAILY #30 tablet Metoprolol Succinate (ER) [Toprol XL] 25 mg PO DAILY #30 tab Discharge Medication List Apixaban [Eliquis] 5 mg PO BID 02/03/24 [History] Atorvastatin [Lipitor] 40 mg PO HS 02/03/24 [History] Furosemide [Lasix] 20 mg PO DAILY PRN 02/03/24 [History] Tamsulosin [Flomax] 0.4 mg PO HS 02/03/24 [History] predniSONE 20 mg PO DAILY 02/03/24 [History] Losartan [Cozaar] 12.5 mg PO DAILY #30 tab 02/06/24 [Rx] Spironolactone [Aldactone] 12.5 mg PO DAILY #30 tab 02/06/24 [Rx] Cephalexin [Keflex] 500 mg PO Q8HR 5 Days #15 cap 02/14/24 [Rx] Dapagliflozin Propanediol [Farxiga] 10 mg PO DAILY 30 Days #30 tab 02/14/24 [Rx] Metoprolol Succinate (ER) [Toprol XL] 25 mg PO BID 30 Days #60 tab 02/14/24 [Rx] Follow up Appointment(s)/Referral(s): None,Stated [REFERRING] - 1-2 days Adilia Sanford MD [STAFF PHYSICIAN] - 1 Week Discharge Disposition: HOME WITH HOME HEALTH SERVICES
--- NOTE | 2024-02-14 13:18 | P.PN ---
Subjective HISTORY OF PRESENT ILLNESS: This is an 83-year-old male patient with past medical history of chronic atrial fibrillation on Eliquis, hypertension, hyperlipidemia, ischemic cardiomyopathy, CAD status post PCI in 2017. 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 Patient has not had a previous ablation or cardioversion in the past. We have joseph peace asked to evaluate the patient for symptomatic bradycardia. Patient presented to the hospital due to shortness of breath and cough and a little dizziness. He denies having palpitations. He does complain of lower extremity edema. He denies chest pain. He denies nausea or vomiting. No blood in his stools. He denies history of stroke or seizure. He is not normally very active. Patient did test positive for COVID. Patient has been started on Cardizem drip last evening. Blood pressure 133/72, heart rate 105, pulse ox 97% on 2 L nasal cannula. Patient states that he is feeling well this morning. -EKG: Atrial fibrillation at 110 bpm -Chest x-ray: Mild cardiomegaly. No acute process. -Laboratory studies: WBC 8.3, initial WBC 11, hemoglobin 13.4. Sodium 133, potassium 4.2, BUN 23 creatinine 0.72. Troponin negative x 1. proBNP 2350. Procalcitonin 0.08. Recent TSH 0.474 done on 02/04/2024 -Home cardiac medications: Eliquis 5 mg twice daily, atorvastatin 40 mg at bedtime, digoxin 125 mcg daily, Lasix 20 mg as needed, losartan 12.5 mg daily, Toprol XL 25 mg daily, Aldactone 12.5 mg daily. -Echocardiogram performed 02/04/2024 reveals EF of 35 to 40%, dilated left atrium, mild mitral and tricuspid regurgitation. 02/13/2024 Patient examined this morning. Patient is sitting up in the chair. Patient currently denies chest pain or pressure. He reports improvement in his sh ortness of breath. He continues to have a cough upon examination. He continues to have lower extremity edema although improving. He remains on IV Lasix. 02/14/2024 Patient examined this morning. He is sitting up in the chair. Patient currently denies chest pain or pressure. He denies shortness of breath. He continues to report sputum production and states he is choking on his phlegm. He continues to have lower extremity edema and remains on IV Lasix. PHYSICAL EXAM: VITAL SIGNS: Reviewed. GENERAL: Well-developed in no acute distress. NECK: Supple. No JVD or thyromegaly LUNGS: Respirations even and unlabored. Lungs diminished with rhonchi noted HEART: Irregular rate and rhythm. S1 and S2 heard. EXTREMITIES: Normal range of motion. No clubbing or cyanosis. Peripheral pulses intact. Trace bilateral lower extremity edema ASSESSMENT: COVID-19 Permanent A-fib with RVR No evidence of bradycardia Hypertension Hyperlipidemia Ischemic cardiomyopathy CAD status post PCI in 2016 PLAN: No need to repeat echocardiogram as this was performed in January 2024 Continue current cardiac medications Continue IV Lasix while patient is hospitalized as kidney function remains stable Daily weights, accurate intake and output, and monitoring of kidney function Further recommendations pending patient course Nurse practitioner note has been reviewed by physician. Signing provider agrees with the documented findings, assessment, and plan of care documented by WOOL WASHER as a scribe. Objective - Vital Signs Vital signs: Vital Signs Temp 97.9 F 02/14/24 07:51 Pulse 71 02/14/24 08:00 Resp 18 02/14/24 08:00 BP 105/83 02/14/24 07:51 Pulse Ox 95 02/14/24 07:51 FiO2 1 02/13/24 08:16 Intake & Output 02/13/24 02/14/24 02/14/24 18:59 06:59 18:59 Intake Total 220 100 240 Output Total 600 150 250 Balance -380 -50 -10 Weight 79.8 kg Intake: IV 100 ceFAZolin 2 gm In Sodium 100 Chloride 0.9% 50 ml @ 100 mls/hr IVPB Q8HR [facility] Rx# :[id number] Oral 220 240 Output: Urine 600 150 250 Other: Voiding Method Urinal # Voids 1 # Bowel Movements 1 1 - Labs CBC & Chem 7: 02/14/24 08:07 02/14/24 08:07 Labs: Abnormal Lab Results - Last 24 Hours (Table) 02/13/24 02/14/24 02/14/24 Range/Units 20:14 08:07 08:07 RBC 4.08 L (4.30-5.90) m/uL Sodium 136 L (137-145) mmol/L BUN 24 H (9-20) mg/dL POC Glucose (mg/dL) 123 H (70-110) mg/dL Calcium 8.3 L (8.4-10.2) mg/dL Microbiology - Last 24 Hours (Table) 02/11/24 15:24 Blood Culture - Preliminary Blood 02/11/24 14:38 Blood Culture - Preliminary Blood 02/11/24 14:03 Gram Stain - Final Sputum Sputum Culture - Final
--- NOTE | 2024-02-14 13:32 | P.PN ---
Subjective Progress Note Date: 02/14/24 Principal diagnosis: Reason for follow-up is COVID-19 and lower extremity cellulitis Patient is a 83-year-old male with a past medical history significant for atrial fibrillation coronary disease status post PTCA stent former smoker presented to hospital for evaluation of increasing shortness of breath and cough patient tested positive for COVID-19 chest x-ray did not show any acute cardiopulmonary disease did have some swelling and redness of the leg concern for possible cellulitis On today's evaluation that is 02/14/2024, Patient is afebrile patient is currently on room air and denies having any shortness of breath, the patient denies any chest pain or cough, the patient denies any nausea vomiting did not have any abdominal pain and no diarrhea, no fever lower extremity feeling better. Patient white count 7.8, creatinine 0.79 culture has been negative Objective - Vital Signs Vital signs: Vital Signs Temp 97.9 F 02/14/24 07:51 Pulse 71 02/14/24 08:00 Resp 18 02/14/24 08:00 BP 105/83 02/14/24 07:51 Pulse Ox 95 02/14/24 07:51 FiO2 1 02/13/24 08:16 Intake & Output 02/13/24 02/14/24 02/14/24 18:59 06:59 18:59 Intake Total 220 100 240 Output Total 600 150 250 Balance -380 -50 -10 Weight 79.8 kg Intake: IV 100 ceFAZolin 2 gm In Sodium 100 Chloride 0.9% 50 ml @ 100 mls/hr IVPB Q8HR NISSA Rx# :[id number] Oral 220 240 Output: Urine 600 150 250 Other: Voiding Method Urinal # Voids 1 # Bowel Movements 1 1 - Exam GENERAL DESCRIPTION: An elderly female lying in bed in no distress RESPIRATORY SYSTEM: Unlabored breathing , decreased breath sounds at bases HEART: S1 S2 regular rate and rhythm , ABDOMEN: Soft , no tenderness EXTREMITIES: Lower extremity swelling redness has improved - Labs CBC & Chem 7: 02/14/24 08:07 02/14/24 08:07 Labs: Abnormal Lab Results - Last 24 Hours (Table) 02/13/24 02/14/24 02/14/24 Range/Units 20:14 08:07 08:07 RBC 4.08 L (4.30-5.90) m/uL Sodium 136 L (137-145) mmol/L BUN 24 H (9-20) mg/dL POC Glucose (mg/dL) 123 H (70-110) mg/dL Calcium 8.3 L (8.4-10.2) mg/dL Microbiology - Last 24 Hours (Table) 02/11/24 15:24 Blood Culture - Preliminary Blood 02/11/24 14:38 Blood Culture - Preliminary Blood 02/11/24 14:03 Gram Stain - Final Sputum Sputum Culture - Final Assessment and Plan (1) Bilateral lower leg cellulitis Status: Acute Code(s): L03.116 - CELLULITIS OF LEFT LOWER LIMB; L03.115 - CELLULITIS OF RIGHT LOWER LIMB SNOMED Code(s): 711331217 (2) COVID-19 Status: Acute Code(s): U07.1 - COVID-19 SNOMED Code(s): 153155173 Plan: 1patient presenting to the hospital with increasing cough shortness of breath in this patient who did tested positive for COVID-19 patient however is not hypoxic no need for supplemental oxygen chest x-ray has been negative for any acute infiltrate did will be mostly supportive 2-patient did have improvement to the lower extremity swelling and redness, consider short course of oral Keflex on discharge discussed with the admitting physician working on discharge Dictation was produced using alike dictation software. please excuse any grammatical, word or spelling errors. Time with Patient: Less than 30
== END 2024-02-14 13:29 | disposition home health service (06) ==
LOC: EC 10:09 → SUPCPDRO 10:09 → 3SCARD 13:55
PROVIDERS: ADMIT Internal Medicine; ATTEND Internal Medicine
DX: U07.1 COVID-19 (principal); J96.01 Acute respiratory failure with hypoxia; J12.82 Pneumonia due to coronavirus disease 2019; L03.116 Cellulitis of left lower limb; L03.115 Cellulitis of right lower limb; R11.2 Nausea with vomiting, unspecified; R10.84 Generalized abdominal pain; E78.5 Hyperlipidemia, unspecified; I10 Essential (primary) hypertension; I25.10 Atherosclerotic heart disease of native coronary artery without angina pectoris; I25.5 Ischemic cardiomyopathy; I48.21 Permanent atrial fibrillation; N40.0 Benign prostatic hyperplasia without lower urinary tract symptoms; M48.55XA Collapsed vertebra, not elsewhere classified, thoracolumbar region, initial encounter for fracture; Z79.01 Long term (current) use of anticoagulants; Z79.899 Other long term (current) drug therapy; Z79.52 Long term (current) use of systemic steroids; Z88.8 Allergy status to other drugs, medicaments and biological substances; Z87.891 Personal history of nicotine dependence; Z98.61 Coronary angioplasty status
CPT/HCPCS: 96376 ×2; 96366 ×4; 96367; 96375; 96368 ×2; 96365; 99285; 36415; 94640 ×7; 94760; 93005; 97530; 97162; 97166; 83880; 80053 ×2; 80048 ×2; 85652; 83605; 83735; 84484; 85025 ×2; 85027 ×2; 85610; 85730; 86140 ×2; 81001; 87040; 87070; 87205; 84145 ×2; 87636; 71046; G0378 ×4; J1940 ×3; J0690 ×4; J7512 ×3; J2470 ×3

== ENCOUNTER 2024-02-15 11:59 | Emergency (ER) | payer MEDICARE, BC ==
[2024-02-15 12:07] VITALS: RESP 18
--- NOTE | 2024-02-15 12:41 | CT ---
EXAMINATION TYPE: CT brain [facility] DATE OF EXAM: 02/15/2024 COMPARISON: NONE HISTORY: patient fell and hit head on wall in bathroom CT DLP: 1529.4 mGycm. Automated Exposure Control for Dose Reduction was Utilized. TECHNIQUE: CT scan of the head and cervical spine are performed without contrast. FINDINGS: There is no acute intracranial hemorrhage or midline shift identified. Mild to moderate v entricular and sulcal prominence. Mild to moderate low attenuation scattered throughout the deep and periventricular white matter . Septal variant is present. Bilateral aphakia is seen. Daah-fb-iinvaors mucosal thickening involving ethmoid sinuses bilaterally. The calvarium is intact. Cervical spine is visualized in its entirety from C1 through upper thoracic levels and demonstrates satisfactory alignment without evidence of acute fracture or dislocation. Prevertebral soft tissue a ppears within normal limits. The C1-C2 articulation is within normal limits on the coronal images. Moderate to severe disc space narrowing at C5-C6 and moderate disc space narrowing at C6-C7 level is present. Axial images show multilevel uncovertebral facet degenerative changes bilaterally. Thyroid g land is somewhat small in size. Upper lungs show some emphysematous change without pneumothorax. IMPRESSION: 1. There is no acute fracture or dislocation evident in the cervical spine. 2. No acute intracranial hemorrhage or midline shift is seen. [facility], , 02/15/2024 12:38 PM
[2024-02-15 13:24] LABS: Basophils % (A) 0 %; Eosinophils % (A) 0 %; HCT 41.4 % (39.0-53.0); HGB 13.8 gm/dL (13.0-17.5); Lymphocytes # (A) 0.4 k/uL (1.0-4.8); Lymphocytes % (A) 5 %; MCH 32.3 pg (25.0-35.0); MCHC 33.2 g/dL (31.0-37.0); MCV 97.2 fL (80.0-100.0); Mean Platelet Volume 7.4; Monocytes # (A) 0.6 k/uL (0-1.0); Monocytes % (A) 8 %; Neutrophils # (A) 6.9 k/uL (1.3-7.7); Neutrophils % (A) 86 %; Platelet Count 172 k/uL (150-450); RBC 4.26 m/uL (4.30-5.90); RDW 13.1 % (11.5-15.5); WBC 8.1 k/uL (3.8-10.6)
[2024-02-15 13:38] LABS: ALT 23 U/L (4-49); African American GFR (CKD) >90 (>60 ml/min/1.73 sqM); Anion Gap 9 mmol/L; Blood Urea Nitrogen 27 mg/dL (9-20); Calcium 7.9 mg/dL (8.4-10.2); Carbon Dioxide 22 mmol/L (22-30); Chloride 101 mmol/L (98-107); Creatine Kinase 736 U/L (55-170); Glucose 109 mg/dL (74-99); Magnesium 1.8 mg/dL (1.6-2.3); Non-African American GFR(CKD) 90 (>60 ml/min/1.73 sqM); Sodium 132 mmol/L (137-145)
[2024-02-15 13:39] LABS: AST 65 U/L (17-59); Albumin 3.1 g/dL (3.5-5.0); Alkaline Phosphatase 67 U/L (38-126); Potassium 4.2 mmol/L (3.5-5.1); Total Bilirubin 1.4 mg/dL (0.2-1.3); Total Protein 5.6 g/dL (6.3-8.2)
--- NOTE | 2024-02-15 14:44 | ED ---
Fall HPI - General Chief Complaint: Fall Stated Complaint: Fall on thinners Time Seen by Provider: 02/15/24 12:09 Source: patient, EMS, RN notes reviewed Mode of arrival: EMS Limitations: no limitations - History of Present Illness Initial Comments: 83-year-old male presents emerged part via EMS for complaint of a fall. Patient states he fell around 9 or 10 last night. Patient states he fell in the bathroom which she believes he slipped on something wet. Patient was wedged between the toilet states he could not get himself up. Patient is on Eliquis. He is unsure if he struck his head. Patient was found by family this morning. Patient denies any back pain and extremity symptoms. Patient was recently admitted and discharged for A-fib and pulmonary edema and had some medication changes per family. - Related Data Home Medications Medication Instructions Recorded Confirmed Apixaban [Eliquis] 5 mg PO BID 02/03/24 02/15/24 Atorvastatin [Lipitor] 40 mg PO HS 02/03/24 02/15/24 Furosemide [Lasix] 20 mg PO DAILY PRN 02/03/24 02/15/24 Tamsulosin [Flomax] 0.4 mg PO HS 02/03/24 02/15/24 predniSONE 20 mg PO DAILY 02/03/24 02/15/24 Cephalexin [Keflex] 500 mg PO DIRECTED 02/15/24 02/15/24 Dapagliflozin Propanediol [Farxiga] 10 mg PO DIRECTED 02/15/24 02/15/24 Metoprolol Succinate (ER) [Toprol 25 mg PO DIRECTED 02/15/24 02/15/24 XL] Previous Rx's Medication Instructions Recorded Losartan [Cozaar] 12.5 mg PO DAILY #30 tab 02/06/24 Spironolactone [Aldactone] 12.5 mg PO DAILY #30 tab 02/06/24 Allergies Allergy/AdvReac Type Severity Reaction Status Date / Time itraconazole [From Sporanox] Allergy Rash/Hives Verified 02/15/24 12:50 Review of Systems ROS Statement: Those systems with pertinent positive or pertinent negative responses have been documented in the HPI. ROS Other: All systems not noted in ROS Statement are negative. Past Medical History Past Medical History: Atrial Fibrillation History of Any Multi-Drug Resistant Organisms: None Reported Past Surgical History: Heart Catheterization With Stent Additional Past Surgical History / Comment(s): heart cath 2016 Past Anesthesia/Blood Transfusion Reactions: No Reported Reaction Date of Last Stent Placement:: 2016 Past Psychological History: No Psychological Hx Reported Smoking Status: Former smoker Past Alcohol Use History: None Reported Past Drug Use History: None Reported General Exam Limitations: no limitations General appearance: alert, in no apparent distress Head exam: Present: atraumatic, normocephalic, normal inspection Eye exam: Present: normal appearance, PERRL, EOMI. Absent: scleral icterus, conjunctival injection, periorbital swelling ENT exam: Present: normal exam, normal oropharynx, mucous membranes moist Neck exam: Present: normal inspection. Absent: tenderness, meningismus, full ROM (Patient in c-collar), lymphadenopathy Respiratory exam: Present: normal lung sounds bilaterally. Absent: respiratory distress, wheezes, rales, rhonchi, stridor Cardiovascular Exam: Present: regular rate, normal rhythm, normal heart sounds. Absent: systolic murmur, diastolic murmur, rubs, gallop, clicks GI/Abdominal exam: Present: soft, normal bowel sounds. Absent: distended, tenderness, guarding, rebound, rigid Neurological exam: Present: alert, oriented X3, CN II-XII intact, reflexes normal. Absent: motor sensory deficit Course Vital Signs 02/15/24 02/15/24 12:02 14:53 Pulse Rate 59 L 90 Respiratory 18 18 Rate Blood Pressure 110/68 108/67 O2 Sat by Pulse 93 L 94 L Oximetry Medical Decision Making - Medical Decision Making Was pt. sent in by a medical professional or institution (, PA, HAT MARKER, urgent care, hospital, or correction...) When possible be specific @ -No Did you speak to anyone other than the patient for history (EMS, parent, family, police, friend...)? What history was obtained from this source @ -No Did you review nursing and triage notes (agree or disagree)? Why? @ -I reviewed and agree with nursing and triage notes Were old charts reviewed (outside hosp., previous admission, EMS record, old EKG, old radiological studies, urgent care reports/EKG's, correction records)? Report findings @ -No old charts were reviewed Differential Diagnosis (chest pain, altered mental status, abdominal pain women, abdominal pain men, vaginal bleeding, weakness, fever, dyspnea, syncope, headache, dizziness, GI bleed, back pain, seizure, CVA, palpatations, mental health, musculoskeletal)? @ -Differential Weakness: Hypoglycemia, shock, sepsis, hyponatremia, anemia, infection, UT, ETOH, adverse medicine reaction, overdose, stroke, this is not meant to be an all-inclusive list. EKG interpreted by me (3pts min.). @ -As above X-rays interpreted by me (1pt min.). @ -None done CT interpreted by me (1pt min.). @ -None done U/S interpreted by me (1pt. min.). @ -None done What testing was considered but not performed or refused? (CT, X-rays, U/S, labs)? Why? @ -None What meds were considered but not given or refused? Why? @ -None Did you discuss the management of the patient with other professionals (professionals i.e. , PA, HAT MARKER, lab, RT, psych nurse, older adult social work specialist, cooperative education director, teacher, bank operations officer, rifle case repairer)? Give summary @ -Did discuss case with Elisabeth with cardiology who came and discussed with family regarding medication changes on his prior admission. Proposal Engineer did discuss with family regarding home life alert. Was smoking cessation discussed for >3mins.? @ -No Was critical care preformed (if so, how long)? @ -No Were there social determinants of health that impacted care today? How? (Homelessness, low income, unemployed, alcoholism, drug addiction, field sportation, low edu. Level, literacy, decrease access to med. care, prison, rehab)? @ -No Was there de-escalation of care discussed even if they declined (Discuss DNR or withdrawal of care, Hospice)? DNR status @ -No What co-morbidities impacted this encounter? (DM, HTN, Smoking, COPD, CAD, Cancer, CVA, ARF, Chemo, Hep., AIDS, mental health diagnosis, sleep apnea, morbid obesity)? @ -None Was patient admitted / discharged? Hospital course, mention meds given and route, prescriptions, significant lab abnormalities, going to OR and other pertinent info. @ -Discharge patient presented after a fall. Patient believes he had a slip and fall patient did have laboratory studies because he had a prolonged period on the ground minimal creatinine kinase elevation. Had a long discussion with family after evaluation discussed with cardiology and supervisor case loading they do feel that he wants to go home and feel comfortable with this we did offer admission return precautions discussed. Undiagnosed new problem with uncertain prognosis? @ -No Drug Therapy requiring intensive monitoring for toxicity (Heparin, Nitro, Insulin, Cardizem)? @ -No Were any procedures done? @ -No Diagnosis/symptom? @ -Fall Acute, or Chronic, or Acute on Chronic? @Acute Uncomplicated (without systemic symptoms) or Complicated (systemic symptoms)? @ -Uncomplicated Side effects of treatment? @ -No Exacerbation, Progression, or Severe Exacerbation? @ -No Poses a threat to life or bodily function? How? (Chest pain, USA, UT, pneumonia, PE, COPD, DKA, ARF, appy, cholecystitis, CVA, Diverticulitis, Homicidal, Suicidal, threat to staff... and all critical care pts) @ -No - Lab Data Result diagrams: 02/15/24 13:08 02/15/24 13:08 Lab Results 02/15/24 02/15/24 Range/Units 13:08 13:08 WBC 8.1 (3.8-10.6) k/uL RBC 4.26 L (4.30-5.90) m/uL Hgb 13.8 (13.0-17.5) gm/dL Hct 41.4 (39.0-53.0) % MCV 97.2 (80.0-100.0) fL MCH 32.3 (25.0-35.0) pg MCHC 33.2 (31.0-37.0) g/dL RDW 13.1 (11.5-15.5) % Plt Count 172 (150-450) k/uL MPV 7.4 Neutrophils % 86 % Lymphocytes % 5 % Monocytes % 8 % Eosinophils % 0 % Basophils % 0 % Neutrophils # 6.9 (1.3-7.7) k/uL Lymphocytes # 0.4 L (1.0-4.8) k/uL Monocytes # 0.6 (0-1.0) k/uL Eosinophils # 0.0 (0-0.7) k/uL Basophils # 0.0 (0-0.2) k/uL Sodium 132 L (137-145) mmol/L Potassium 4.2 (3.5-5.1) mmol/L Chloride 101 (98-107) mmol/L Carbon Dioxide 22 (22-30) mmol/L Anion Gap 9 mmol/L BUN 27 H (9-20) mg/dL Creatinine 0.64 L (0.66-1.25) mg/dL Est GFR (CKD-EPI)AfAm >90 (>60 ml/min/1.73 sqM) Est GFR (CKD-EPI)NonAf 90 (>60 ml/min/1.73 sqM) Glucose 109 H (74-99) mg/dL Calcium 7.9 L (8.4-10.2) mg/dL Magnesium 1.8 (1.6-2.3) mg/dL Total Bilirubin 1.4 H (0.2-1.3) mg/dL AST 65 H (17-59) U/L ALT 23 (4-49) U/L Alkaline Phosphatase 67 (38-126) U/L Creatine Kinase 736 H (55-170) U/L Total Protein 5.6 L (6.3-8.2) g/dL Albumin 3.1 L (3.5-5.0) g/dL Disposition Clinical Impression: Fall Disposition: HOME SELF-CARE Condition: Stable Instructions (If sedation given, give patient instructions): Fall Prevention for Older Adults (ED) Additional Instructions: Please return to the Emergency Department if symptoms worsen or any other concerns. Is patient prescribed a controlled substance at d/c from ED?: No Referrals: [facility], [NON-STAFF] - 1-2 days Savana Galicia DO [Primary Care Provider] - 1-2 days Time of Disposition: 14:48
[2024-02-15 14:54] VITALS: BP 108/67; PULSE 90
== END 2024-02-15 15:08 | disposition home or self-care (01) ==
LOC: EC 11:59
DX: Z04.3 Encounter for examination and observation following other accident (principal); Z87.891 Personal history of nicotine dependence; Z88.8 Allergy status to other drugs, medicaments and biological substances; W01.0XXA Fall on same level from slipping, tripping and stumbling without subsequent striking against object, initial encounter; Y92.002 Bathroom of unspecified non-institutional (private) residence as the place of occurrence of the external cause
CPT/HCPCS: 36415; 70450; 72125; 80053; 82550; 83735; 85025; 99284

== ENCOUNTER 2024-02-15 19:03 | Observation (INO) | payer MEDICARE, BC ==
--- NOTE | 2024-02-15 19:39 | ED ---
Weakness HPI - General Chief complaint: Weakness Stated complaint: weakness Time Seen by Provider: 02/15/24 19:10 Source: EMS, RN notes reviewed, old records reviewed Mode of arrival: EMS Limitations: no limitations - History of Present Illness Initial comments: This is a 83-year-old male to the ER for evaluation this patient presents today for evaluation of weakness patient was in the ER earlier found to have coronavirus and presents today with fever and weakness inability to walk MD Complaint: generalized weakness, lack of energy, difficulty walking -: hour(s) Location: generalized Severity: moderate Severity scale (1-10): 6 Consistency: constant Improves with: none Context: recent illness Associated Symptoms: fever/chills - Related Data Home Medications Medication Instructions Recorded Confirmed Apixaban [Eliquis] 5 mg PO BID 02/03/24 02/15/24 Atorvastatin [Lipitor] 40 mg PO HS 02/03/24 02/15/24 Furosemide [Lasix] 20 mg PO DAILY PRN 02/03/24 02/15/24 Tamsulosin [Flomax] 0.4 mg PO HS 02/03/24 02/15/24 predniSONE 20 mg PO DAILY 02/03/24 02/15/24 Cephalexin [Keflex] 500 mg PO DIRECTED 02/15/24 02/15/24 Dapagliflozin Propanediol [Farxiga] 10 mg PO DIRECTED 02/15/24 02/15/24 Metoprolol Succinate (ER) [Toprol 25 mg PO DIRECTED 02/15/24 02/15/24 XL] Previous Rx's Medication Instructions Recorded Spironolactone [Aldactone] 12.5 mg PO DAILY #30 tab 02/06/24 Allergies Allergy/AdvReac Type Severity Reaction Status Date / Time itraconazole [From Sporanox] Allergy Rash/Hives Verified 02/15/24 12:50 Review of Systems ROS Statement: Those systems with pertinent positive or pertinent negative responses have been documented in the HPI. ROS Other: All systems not noted in ROS Statement are negative. Past Medical History Past Medical History: Atrial Fibrillation History of Any Multi-Drug Resistant Organisms: None Reported Past Surgical History: Heart Catheterization With Stent Additional Past Surgical History / Comment(s): heart cath 2016 Past Anesthesia/Blood Transfusion Reactions: No Reported Reaction Date of Last Stent Placement:: 2016 Past Psychological History: No Psychological Hx Reported Smoking Status: Former smoker Past Alcohol Use History: None Reported Past Drug Use History: None Reported General Exam Limitations: no limitations General appearance: alert, in no apparent distress Head exam: Present: atraumatic, normocephalic, normal inspection Eye exam: Present: normal appearance, PERRL, EOMI. Absent: scleral icterus, conjunctival injection, periorbital swelling ENT exam: Present: normal exam, mucous membranes moist Neck exam: Present: normal inspection. Absent: tenderness, meningismus, lymphadenopathy Respiratory exam: Present: normal lung sounds bilaterally. Absent: respiratory distress, wheezes, rales, rhonchi, stridor Cardiovascular Exam: Present: regular rate, normal rhythm, normal heart sounds. Absent: systolic murmur, diastolic murmur, rubs, gallop, clicks GI/Abdominal exam: Present: soft, normal bowel sounds. Absent: distended, tenderness, guarding, rebound, rigid Extremities exam: Present: normal inspection, full ROM, normal capillary refill. Absent: tenderness, pedal edema, joint swelling, calf tenderness Back exam: Present: normal inspection Neurological exam: Present: alert, oriented X3, CN II-XII intact Psychiatric exam: Present: normal affect, normal mood Skin exam: Present: warm, dry, intact, normal color. Absent: rash Course Vital Signs 02/15/24 02/15/24 02/15/24 19:05 20:00 20:30 Temperature 100.8 F H Pulse Rate 69 106 H 130 H Respiratory 20 19 18 Rate Blood Pressure 90/70 100/52 97/61 O2 Sat by Pulse 97 95 95 Oximetry 02/15/24 02/15/24 02/15/24 20:54 22:14 23:00 Temperature 100.3 F H 98.1 F 98.1 F Pulse Rate 90 97 98 Respiratory 18 20 19 Rate Blood Pressure 94/52 104/60 94/61 O2 Sat by Pulse 96 96 96 Oximetry - Reevaluation(s) Reevaluation #1: 02/15/24 20:26 Medical records reviewed Reevaluation #2: 02/15/24 20:26 Patient symptoms unchanged Reevaluation #3: 02/15/24 20:26 Patient informed of results and questions answered Reevaluation #4: Was pt. sent in by a medical professional or institution (, PA, BICYCLE REPAIRMAN, urgent care, hospital, or group home...) When possible be specific @ -no Did you speak to anyone other than the patient for history (EMS, parent, family, police, friend...)? What history was obtained from this source @ -no Did you review nursing and triage notes (agree or disagree)? Why? @ -agree Are old charts reviewed (outside hosp., previous admission, EMS record, old EKG, old radiological studies, urgent care reports/EKG's, group home records)? Report findings @ -yes Differential Diagnosis (chest pain, altered mental status, abdominal pain women, abdominal pain men, vaginal bleeding, weakness, fever, dyspnea, syncope, headache, dizziness, GI bleed, back pain, seizure, CVA, palpatations, mental health, musculoskeletal)? @ -prior EKG interpreted by me (3pts min.). @ -yes X-rays interpreted by me (1pt min.). @ -yes negative for acute disease CT interpreted by me (1pt min.). @ -no U/S interpreted by me (1pt. min.). @ -no What testing was considered but not performed or refused? (CT, X-rays, U/S, labs)? Why? @ -none What meds were considered but not given or refused? Why? @ -none Did you discuss the management of the patient with other professionals (professionals i.e. , PA, BICYCLE REPAIRMAN, lab, RT, psych nurse, social psychologist, color worker, teacher, surveillance sensor officer, piano case maker)? Give summary @ -no Was smoking cessation discussed for >3mins.? @ -no Was critical care preformed (if so, how long)? @ -no Were there social determinants of health that impacted care today? How? (Homelessness, low income, unemployed, alcoholism, drug addiction, tr ansportation, low edu. Level, literacy, decrease access to med. care, penitentiary, rehab)? @ -none Was there de-escalation of care discussed even if they declined (Discuss DNR or withdrawal of care, Hospice)? DNR status @ -no What co-morbidities impacted this encounter? (DM, HTN, Smoking, COPD, CAD, Canc er, CVA, ARF, Chemo, Hep., AIDS, mental health diagnosis, sleep apnea, morbid obesity)? @ -none Was patient admitted / discharged? Hospital course, mention meds given and route, prescriptions, significant lab abnormalities, going to OR and other pertinent info. @ - 83 male to the ER for evaluation patient presents today for evaluation of fever weakness positive coronavirus need to be admitted for PT OT disease with increasing debility and weakness at home. Admitted coronavirus and weakness extremes of age Undiagnosed new problem with uncertain prognosis? @ -no Drug Therapy requiring intensive monitoring for toxicity (Heparin, Nitro, Insulin, Cardizem)? @ -no Were any procedures done? @ -no Diagnosis/symptom? @ - Acute, or Chronic, or Acute on Chronic? @ -Acute Uncomplicated (without systemic symptoms) or Complicated (systemic symptoms)? @ -Complicated Side effects of treatment? @ -no Exacerbation, Progression, or Severe Exacerbation? @ -exacerbation Poses a threat to life or bodily function? How? (Chest pain, [place], [place], pneumonia, PE, COPD, DKA, ARF, appy, cholecystitis, CVA, Diverticulitis, Homicidal, Suicidal, threat to staff... and all critical care pts) @ -yes extremes of age Reevaluation #5: Differential Fever: Pneumonia, viral URI, endocarditis, myocarditis, pericarditis, otitis, sinusitis, peritonsillar Abscess, retropharyngeal Abscess, epiglottitis, peritonitis, appendicitis, Mariah cystitis, diverticulitis, hepatitis, colitis, UTI, PID, TOA, pyelonephritis, prostatitis, epididymitis, meningitis, encephalitis, pulmonary embolism, CVA, thyroid storm, pancreatitis, adrenal crisis, cavernous sinus thrombosis, this is not meant to be an all-inclusive list. Differential Weakness: Hypoglycemia, shock, sepsis, hyponatremia, anemia, infection, FL, ETOH, adverse medicine reaction, overdose, stroke, this is not meant to be an all-inclusive list. - Consultations Consultation #1: Spoke with [facility] who agrees to admit this patient EKG Findings - EKG Comments: EKG Findings:: EKG is A-fib with RVR 108 QRS 94 QTc 408 - EKG Results: EKG: interpreted by SKYLAD Medical Decision Making - Medical Decision Making 83 male to the ER for evaluation patient presents today for evaluation of fever weakness positive coronavirus need to be admitted for PT OT disease with increasing debility and weakness at home. - Lab Data Result diagrams: 02/17/24 09:04 02/17/24 09:04 Lab Results 02/15/24 02/15/24 02/15/24 Range/Units 19:21 19:21 19:21 WBC 7.0 (3.8-10.6) k/uL RBC 4.22 L (4.30-5.90) m/uL Hgb 13.6 (13.0-17.5) gm/dL Hct 41.4 (39.0-53.0) % MCV 98.1 (80.0-100.0) fL MCH 32.1 (25.0-35.0) pg MCHC 32.7 (31.0-37.0) g/dL RDW 13.2 (11.5-15.5) % Plt Count 172 (150-450) k/uL MPV 8.2 Neutrophils % 81 % Lymphocytes % 10 % Monocytes % 7 % Eosinophils % 0 % Basophils % 0 % Neutrophils # 5.7 (1.3-7.7) k/uL Lymphocytes # 0.7 L (1.0-4.8) k/uL Monocytes # 0.5 (0-1.0) k/uL Eosinophils # 0.0 (0-0.7) k/uL Basophils # 0.0 (0-0.2) k/uL PT 12.0 (10.0-12.5) sec INR 1.1 (<1.2) APTT 22.4 (22.0-30.0) sec Sodium 134 L (137-145) mmol/L Potassium 4.3 (3.5-5.1) mmol/L Chloride 100 (98-107) mmol/L Carbon Dioxide 27 (22-30) mmol/L Anion Gap 7 mmol/L BUN 29 H (9-20) mg/dL Creatinine 0.81 (0.66-1.25) mg/dL Est GFR (CKD-EPI)AfAm >90 (>60 ml/min/1.73 sqM) Est GFR (CKD-EPI)NonAf 82 (>60 ml/min/1.73 sqM) Glucose 112 H (74-99) mg/dL Plasma Lactic Acid Emeka (0.7-2.0) mmol/L Calcium 8.4 (8.4-10.2) mg/dL Phosphorus 2.2 L (2.5-4.5) mg/dL Magnesium 1.9 (1.6-2.3) mg/dL Total Bilirubin 1.3 (0.2-1.3) mg/dL AST 70 H (17-59) U/L ALT 27 (4-49) U/L Alkaline Phosphatase 77 (38-126) U/L Troponin I (0.000-0.034) ng/mL NT-Pro-B Natriuret Pep 3300 pg/mL Total Protein 5.5 L (6.3-8.2) g/dL Albumin 3.1 L (3.5-5.0) g/dL TSH 3.040 (0.465-4.680) mIU/L 02/15/24 02/15/24 Range/Units 19:21 19:21 WBC (3.8-10.6) k/uL RBC (4.30-5.90) m/uL Hgb (13.0-17.5) gm/dL Hct (39.0-53.0) % MCV (80.0-100.0) fL MCH (25.0-35.0) pg MCHC (31.0-37.0) g/dL RDW (11.5-15.5) % Plt Count (150-450) k/uL MPV Neutrophils % % Lymphocytes % % Monocytes % % Eosinophils % % Basophils % % Neutrophils # (1.3-7.7) k/uL Lymphocytes # (1.0-4.8) k/uL Monocytes # (0-1.0) k/uL Eosinophils # (0-0.7) k/uL Basophils # (0-0.2) k/uL PT (10.0-12.5) sec INR (<1.2) APTT (22.0-30.0) sec Sodium (137-145) mmol/L Potassium (3.5-5.1) mmol/L Chloride (98-107) mmol/L Carbon Dioxide (22-30) mmol/L Anion Gap mmol/L BUN (9-20) mg/dL Creatinine (0.66-1.25) mg/dL Est GFR (CKD-EPI)AfAm (>60 ml/min/1.73 sqM) Est GFR (CKD-EPI)NonAf (>60 ml/min/1.73 sqM) Glucose (74-99) mg/dL Plasma Lactic Acid Emeka 3.2 H* (0.7-2.0) mmol/L Calcium (8.4-10.2) mg/dL Phosphorus (2.5-4.5) mg/dL Magnesium (1.6-2.3) mg/dL Total Bilirubin (0.2-1.3) mg/dL AST (17-59) U/L ALT (4-49) U/L Alkaline Phosphatase (38-126) U/L Troponin I 0.043 H* (0.000-0.034) ng/mL NT-Pro-B Natriuret Pep pg/mL Total Protein (6.3-8.2) g/dL Albumin (3.5-5.0) g/dL TSH (0.465-4.680) mIU/L - EKG Data -: EKG Interpreted by Me - Radiology Data Radiology results: report reviewed (Chest x-ray is negative for acute disease), image reviewed Disposition Clinical Impression: Nausea & vomiting, Dehydration, Fever, Weakness, COVID-19 Disposition: ADMITTED IP TO THIS [facility] Condition: Stable Is patient prescribed a controlled substance at d/c from ED?: No Time of Disposition: 20:20
[2024-02-15] MEDS: KETOROLAC 15 MG/ML 1 ML VIAL IVP STA (20:03)
[2024-02-15] MEDS: ACETAMINOPHEN IV (For NPO) 1,000 MG in EMPTY BAG 1 BAG IVPB STA (20:03)
[2024-02-15] MEDS: SODIUM CHLORIDE 0.9% 1,000 ML IV STA (20:04)
--- NOTE | 2024-02-15 20:11 | XR ---
EXAMINATION TYPE: XR chest 2V DATE OF EXAM: 02/15/2024 7:58 PM CLINICAL INDICATION:Male, 83 years old with history of cough; [facility] COMPARISON: Chest radiographs from 02/11/2024. TECHNIQUE: XR chest 2V Frontal view of the chest. FINDINGS: Lungs/Pleura: Hazy bilateral lower lung airspace opacities left greater than right. No pneumothorax. Pulmonary vascularity: Unremarkable. Heart/mediastinum: Cardiomediastinal silhouette is enlarged but stable. Musculoskeletal: No acute osseous pathology. Other findings: None IMPRESSION: Stable mild cardiomegaly with bilateral developing airspace disease. [facility], , 02/15/2024 8:08 PM
[2024-02-15 20:12] LABS: Basophils % (A) 0 %; Eosinophils % (A) 0 %; HCT 41.4 % (39.0-53.0); HGB 13.6 gm/dL (13.0-17.5); Lymphocytes # (A) 0.7 k/uL (1.0-4.8); Lymphocytes % (A) 10 %; MCH 32.1 pg (25.0-35.0); MCHC 32.7 g/dL (31.0-37.0); MCV 98.1 fL (80.0-100.0); Mean Platelet Volume 8.2; Monocytes # (A) 0.5 k/uL (0-1.0); Monocytes % (A) 7 %; Neutrophils # (A) 5.7 k/uL (1.3-7.7); Neutrophils % (A) 81 %; Platelet Count 172 k/uL (150-450); RBC 4.22 m/uL (4.30-5.90); RDW 13.2 % (11.5-15.5)
[2024-02-15 20:22] LABS: ALT 27 U/L (4-49); AST 70 U/L (17-59); African American GFR (CKD) >90 (>60 ml/min/1.73 sqM); Albumin 3.1 g/dL (3.5-5.0); Alkaline Phosphatase 77 U/L (38-126); Anion Gap 7 mmol/L; Blood Urea Nitrogen 29 mg/dL (9-20); Calcium 8.4 mg/dL (8.4-10.2); Carbon Dioxide 27 mmol/L (22-30); Chloride 100 mmol/L (98-107); Glucose 112 mg/dL (74-99); INR 1.1 (<1.2); Magnesium 1.9 mg/dL (1.6-2.3); Non-African American GFR(CKD) 82 (>60 ml/min/1.73 sqM); Partial Thromboplastin Time 22.4 sec (22.0-30.0); Phosphorus 2.2 mg/dL (2.5-4.5); Potassium 4.3 mmol/L (3.5-5.1); Sodium 134 mmol/L (137-145); Total Bilirubin 1.3 mg/dL (0.2-1.3); Total Protein 5.5 g/dL (6.3-8.2)
[2024-02-15] MEDS ORDERED: NALOXONE 0.4 MG/ML 1 ML VIAL IV PRN (20:24)
[2024-02-15] MEDS ORDERED: ONDANSETRON 4 MG/2 ML VIAL IVP PRN (20:24)
[2024-02-15] MEDS ORDERED: MORPHINE SULFATE 4 MG/ML SYRINGE IV PRN (20:24)
[2024-02-15] MEDS ORDERED: ACETAMINOPHEN TAB 325 MG TAB PO PRN (20:24)
[2024-02-15 20:31] LABS: NT-Pro-B-Type Natriuretic Pept 3300 pg/mL
[2024-02-15] MEDS: SODIUM CHLORIDE 0.9% 1,000 ML IV SCH (20:52)
[2024-02-15 22:18] LABS: Appearance,Urine Clear (Clear); Bilirubin,Urine Negative (Negative); Blood,Urine Moderate (Negative); Budding Yeast,Urine Occasional /hpf; Color,Urine Yellow; Glucose,Urine (UA) 4+ (Negative); Ketones,Urine Negative (Negative); Leukocyte Esterase,Urine Negative (Negative); Mucus,Urine Occasional /hpf; Nitrite,Urine Negative (Negative); PH, Urine 6.5 (5.0-8.0); Protein,Urine 1+ (Negative); RBC,Urine 45 /hpf (0-5); Specific Gravity,Urine 1.021 (1.001-1.035); WBC,Urine 1 /hpf (0-5)
[2024-02-15] MEDS: METOPROLOL SUCCINATE (ER) 25 MG TAB.ER.24H PO SCH (23:32)
[2024-02-16 00:59] LABS: ALT 21 U/L (4-49); AST 58 U/L (17-59); African American GFR (CKD) >90 (>60 ml/min/1.73 sqM); Albumin 2.4 g/dL (3.5-5.0); Albumin/Globulin Ratio 1.1; Alkaline Phosphatase 65 U/L (38-126); Anion Gap 6 mmol/L; Blood Urea Nitrogen 26 mg/dL (9-20); Calcium 7.4 mg/dL (8.4-10.2); Carbon Dioxide 23 mmol/L (22-30); Chloride 104 mmol/L (98-107); Globulin 2.2 g/dL; Glucose 101 mg/dL (74-99); Magnesium 1.8 mg/dL (1.6-2.3); Non-African American GFR(CKD) 87 (>60 ml/min/1.73 sqM); Phosphorus 2.5 mg/dL (2.5-4.5); Potassium 3.4 mmol/L (3.5-5.1); Sodium 133 mmol/L (137-145); Total Bilirubin 1.1 mg/dL (0.2-1.3); Total Protein 4.6 g/dL (6.3-8.2)
[2024-02-16 01:10] LABS: Basophils % (A) 0 %; Eosinophils % (A) 0 %; HCT 37.8 % (39.0-53.0); HGB 12.1 gm/dL (13.0-17.5); Lymphocytes # (A) 0.6 k/uL (1.0-4.8); Lymphocytes % (A) 9 %; MCH 31.5 pg (25.0-35.0); MCHC 32.1 g/dL (31.0-37.0); MCV 98.1 fL (80.0-100.0); Mean Platelet Volume 7.7; Monocytes # (A) 0.5 k/uL (0-1.0); Monocytes % (A) 8 %; Neutrophils % (A) 81 %; Platelet Count 147 k/uL (150-450); RBC 3.85 m/uL (4.30-5.90); RDW 13.4 % (11.5-15.5); WBC 6.2 k/uL (3.8-10.6)
[2024-02-16] MEDS: METOPROLOL TARTRATE 5 MG/5 ML VIAL IVP STA (03:51)
[2024-02-16 06:04] LABS: Glucose,Whole Blood 88 mg/dL (70-110)
[2024-02-16 08:58] VITALS: RESP 18
[2024-02-16] MEDS: LOSARTAN 25 MG TAB PO SCH (09:05)
[2024-02-16] MEDS: APIXABAN 5 MG TAB PO SCH (09:05)
[2024-02-16] MEDS: SPIRONOLACTONE 25 MG TAB PO SCH (09:05)
[2024-02-16 11:03] LABS: Glucose,Whole Blood 95 mg/dL (70-110)
[2024-02-16] MEDS ORDERED: Potassium Replacement Protocol 1 EACH MISC MISCELLANE PRN (11:29)
[2024-02-16] MEDS ORDERED: FUROSEMIDE 20 MG TAB PO PRN (12:24)
[2024-02-16] MEDS: POTASSIUM CHLORIDE ER 20 MEQ TAB.ER PO SCH (12:25)
--- NOTE | 2024-02-16 12:35 | P.HPIM ---
History of Present Illness Patient pleasant 81-year-old male came in after a fall patient was laying on the floor all night. Patient was recently discharged from the hospital after he was treated for COVID 19 pneumonia although patient does have extensive other medical issues including congestive heart failure EF of around 30 to 35% COPD. Physical therapy Occupational Therapy will evaluate the patient we are asked to the patient for inpatient rehab. Patient respiratory status is at his baseline although he has some slight wheezing on exam sodium is low at 133 potassium 3.4 patient only takes as needed Lasix for pedal edema as needed. But does take a scheduled Aldactone patient blood pressure is low normal I do not have any BNP available but troponin is mildly elevated at 0.043 EMR obtaining repeat troponin level EKG did not show any acute ST-T wave changes. REVIEW OF SYSTEMS: All other systems are negative except those mentioned in the HPI PHYSICAL EXAMINATION: GENERAL: The patient is alert and oriented x3, not in any acute distress. Well developed, well nourished. Obese HEENT: Pupils are round and equally reacting to light. EOMI. No scleral icterus. No conjunctival pallor. Normocephalic, atraumatic. No pharyngeal erythema. No th yromegaly. CARDIOVASCULAR: S1 and S2 present. No murmurs, rubs, or gallops. PULMONARY: Mild expiratory wheezing on exam ABDOMEN: Soft, nontender, nondistended, normoactive bowel sounds. No palpable organomegaly. MUSCULOSKELETAL: No joint swelling or deformity. EXTREMITIES: No cyanosis, clubbing, or pedal edema. NEUROLOGICAL: Gross neurological examination did not reveal any focal deficits. Significant generalized weakness. SKIN: No rashes. Assessment and plan -Generalized weakness secondary to his recent illness age-related muscle atrophy and chronic medical conditions. PT and OT will evaluate the patient patient will be evaluated for inpatient rehab in subacute rehab. -Hyponatremia probably mild hypervolemia patient's IV fluids will be discontinued patient will be started on his oral Lasix Aldactone. Continue Jardiance and other heart failure medications -Hypokalemia potassium will be replaced -Mild elevation of troponin type II LA secondary to congestive heart failure -COPD with mild acute exacerbation continue with the oral steroids -Current heart failure chronic systolic function with mild acute exacerbation patient has EF of around 35% -Permanent atrial fibrillation for which patient is on anticoagulation with Eliquis which will be continued -Chronic venous stasis of bilateral lower extremities without any evidence of cellulitis at this time patient was recently treated for cellulitis and will complete the course of cefazolin. -Hypotension secondary to chronic CHF and low ejection fraction DVT prophylaxis: On anticoagulation Past Medical History Past Medical History: Atrial Fibrillation History of Any Multi-Drug Resistant Organisms: None Reported Past Surgical History: Heart Catheterization With Stent Additional Past Surgical History / Comment(s): heart cath 2016 Past Anesthesia/Blood Transfusion Reactions: No Reported Reaction Date of Last Stent Placement:: 2016 Past Psychological History: No Psychological Hx Reported Smoking Status: Former smoker Past Alcohol Use History: None Reported Past Drug Use History: None Reported Medications and Allergies Home Medications Medication Instructions Recorded Confirmed Type Apixaban [Eliquis] 5 mg PO BID 02/03/24 02/15/24 History Atorvastatin [Lipitor] 40 mg PO HS 02/03/24 02/15/24 History Furosemide [Lasix] 20 mg PO DAILY PRN 02/03/24 02/15/24 History Tamsulosin [Flomax] 0.4 mg PO HS 02/03/24 02/15/24 History predniSONE 20 mg PO DAILY 02/03/24 02/15/24 History Losartan [Cozaar] 12.5 mg PO DAILY #30 tab 02/06/24 02/15/24 Rx Spironolactone [Aldactone] 12.5 mg PO DAILY #30 tab 02/06/24 02/15/24 Rx Cephalexin [Keflex] 500 mg PO DIRECTED 02/15/24 02/15/24 History Dapagliflozin Propanediol [Farxiga] 10 mg PO DIRECTED 02/15/24 02/15/24 History Metoprolol Succinate (ER) [Toprol 25 mg PO DIRECTED 02/15/24 02/15/24 History XL] Allergies Allergy/AdvReac Type Severity Reaction Status Date / Time itraconazole [From Sporanox] Allergy Rash/Hives Verified 02/15/24 12:50 Physical Exam Vitals: Vital Signs Temp Pulse Pulse Resp BP BP Pulse Ox 02/16/24 11:24 103 H 18 90/62 91 L 02/16/24 08:57 97.5 F L 124 H 18 124/69 97 02/16/24 04:00 98.0 F 66 17 110/66 95 02/16/24 02:00 63 16 02/15/24 23:58 97.6 F 16 95/58 93 L 02/15/24 23:00 98.1 F 98 19 94/61 96 02/15/24 22:14 98.1 F 97 20 104/60 96 02/15/24 20:54 100.3 F H 90 18 94/52 96 02/15/24 20:30 130 H 18 97/61 95 02/15/24 20:00 106 H 19 100/52 95 02/15/24 19:05 100.8 F H 69 20 90/70 97 Intake and Output 02/15/24 02/16/24 02/16/24 22:59 06:59 14:59 Intake Total 122 Output Total 200 Balance -200 122 Intake: IV 10 Invasive Line 1 10 Oral 112 Output: Urine 200 Other: Voiding Method Urinal Urinal Weight 79.832 kg 69 kg Results CBC & Chem 7: 02/16/24 00:40 02/16/24 06:00 Labs: Abnormal Lab Results - Last 24 Hours (Table) 02/15/24 02/15/24 02/15/24 Range/Units 19:21 19:21 19:21 RBC 4.22 L (4.30-5.90) m/uL Hgb (13.0-17.5) gm/dL Hct (39.0-53.0) % Plt Count (150-450) k/uL Lymphocytes # 0.7 L (1.0-4.8) k/uL Sodium 134 L (137-145) mmol/L Potassium (3.5-5.1) mmol/L BUN 29 H (9-20) mg/dL Glucose 112 H (74-99) mg/dL Plasma Lactic Acid Emeka 3.2 H* (0.7-2.0) mmol/L Calcium (8.4-10.2) mg/dL Phosphorus 2.2 L (2.5-4.5) mg/dL AST 70 H (17-59) U/L Troponin I (0.000-0.034) ng/mL Total Protein 5.5 L (6.3-8.2) g/dL Albumin 3.1 L (3.5-5.0) g/dL Urine Protein (Negative) Urine Glucose (UA) (Negative) Urine Blood (Negative) Urine RBC (0-5) /hpf Urine Mucus (None) /hpf Urine Yeast (Budding) (None) /hpf 02/15/24 02/15/24 02/16/24 Range/Units 19:21 20:58 00:40 RBC 3.85 L (4.30-5.90) m/uL Hgb 12.1 L (13.0-17.5) gm/dL Hct 37.8 L (39.0-53.0) % Plt Count 147 L (150-450) k/uL Lymphocytes # 0.6 L (1.0-4.8) k/uL Sodium (137-145) mmol/L Potassium (3.5-5.1) mmol/L BUN (9-20) mg/dL Glucose (74-99) mg/dL Plasma Lactic Acid Emeka (0.7-2.0) mmol/L Calcium (8.4-10.2) mg/dL Phosphorus (2.5-4.5) mg/dL AST (17-59) U/L Troponin I 0.043 H* (0.000-0.034) ng/mL Total Protein (6.3-8.2) g/dL Albumin (3.5-5.0) g/dL Urine Protein 1+ H (Negative) Urine Glucose (UA) 4+ H (Negative) Urine Blood Moderate H (Negative) Urine RBC 45 H (0-5) /hpf Urine Mucus Occasional H (None) /hpf Urine Yeast (Budding) Occasional H (None) /hpf 02/16/24 Range/Units 06:00 RBC (4.30-5.90) m/uL Hgb (13.0-17.5) gm/dL Hct (39.0-53.0) % Plt Count (150-450) k/uL Lymphocytes # (1.0-4.8) k/uL Sodium 133 L (137-145) mmol/L Potassium 3.4 L (3.5-5.1) mmol/L BUN 26 H (9-20) mg/dL Glucose 101 H (74-99) mg/dL Plasma Lactic Acid Emeka (0.7-2.0) mmol/L Calcium 7.4 L (8.4-10.2) mg/dL Phosphorus (2.5-4.5) mg/dL AST (17-59) U/L Troponin I (0.000-0.034) ng/mL Total Protein 4.6 L (6.3-8.2) g/dL Albumin 2.4 L (3.5-5.0) g/dL Urine Protein (Negative) Urine Glucose (UA) (Negative) Urine Blood (Negative) Urine RBC (0-5) /hpf Urine Mucus (None) /hpf Urine Yeast (Budding) (None) /hpf Thrombosis Risk Factor Assmnt - Choose All That Apply Each Factor Represents 1 point: Medical pt on bed rest Each Risk Factor Represents 3 Points: Age 75 years or older Thrombosis Risk Factor Assessment Total Risk Factor Score: 4 Thrombosis Risk Factor Assessment Level: Moderate Risk
[2024-02-16] MEDS: predniSONE 20 MG TAB PO SCH (14:47)
[2024-02-16] MEDS: DAPAGLIFLOZIN PROPANEDIOL 10 MG TABLET PO SCH (14:47)
[2024-02-16] MEDS: CEPHALEXIN 500 MG CAP PO SCH (14:47)
[2024-02-16 16:22] LABS: Glucose,Whole Blood 139 mg/dL (70-110)
--- NOTE | 2024-02-16 17:59 | P.CONS ---
History of Present Illness - Reason for Consult Consult date: 02/16/24 Rehab Recommendations - Chief Complaint Weakness/COVID - History of Present Illness Kameron Larson is a 83 year old who lives alone in a one story home, with 2 STFD. Prior to admission, pt was ambulating with a 4WW/rollator. Pt was independent for basic/advanced ADLs. Current driving: yes. Support system: daughter and son-in-law help as needed. Daughter reports she is a nurse at [employer]. Pt was admitted on 02/15/24, presented to the ED with complaints of generalized weakness, fever and was found to have COVID-19. Reports he is now unable to walk due to weakness. He states he had a fall while at home and was laying on the floor all night for approximately 12 hours. PM&R consulted for rehab recommendations. Therapy progress: therapy evaluations reviewed and patient is needing mod assist for bathing, min assist for UB dressing, max assist for LB dressing, max assist with toileting, mod A x2 for transfers, mod assist with bed mobility. 02/16/24: Patient reports he is feeling better. Denies any chest pain. Reports a productive cough, +phlegm. Had a headache last night, denies today. Denies abdominal pain, LBM yesterday. Reports he had a fall at home and hit the side of his head. He was down for approximately 12 hours at home. Chronic left shoulder pain due to old left rotator cuff injury, denies any other pain. Review of Systems As above in subjective. Past Medical History Past Medical History: Atrial Fibrillation History of Any Multi-Drug Resistant Organisms: None Reported Past Surgical History: Heart Catheterization With Stent Additional Past Surgical History / Comment(s): heart cath 2016 Past Anesthesia/Blood Transfusion Reactions: No Reported Reaction Date of Last Stent Placement:: 2016 Past Psychological History: No Psychological Hx Reported Smoking Status: Former smoker Past Alcohol Use History: None Reported Past Drug Use History: None Reported Medications and Allergies Home Medications Medication Instructions Recorded Confirmed Type Apixaban [Eliquis] 5 mg PO BID 02/03/24 02/15/24 History Atorvastatin [Lipitor] 40 mg PO HS 02/03/24 02/15/24 History Furosemide [Lasix] 20 mg PO DAILY PRN 02/03/24 02/15/24 History Tamsulosin [Flomax] 0.4 mg PO HS 02/03/24 02/15/24 History predniSONE 20 mg PO DAILY 02/03/24 02/15/24 History Losartan [Cozaar] 12.5 mg PO DAILY #30 tab 02/06/24 02/15/24 Rx Spironolactone [Aldactone] 12.5 mg PO DAILY #30 tab 02/06/24 02/15/24 Rx Cephalexin [Keflex] 500 mg PO DIRECTED 02/15/24 02/15/24 History Dapagliflozin Propanediol [Farxiga] 10 mg PO DIRECTED 02/15/24 02/15/24 History Metoprolol Succinate (ER) [Toprol 25 mg PO DIRECTED 02/15/24 02/15/24 History XL] Allergies Allergy/AdvReac Type Severity Reaction Status Date / Time itraconazole [From Sporanox] Allergy Rash/Hives Verified 02/15/24 12:50 Physical Exam Vitals: Vital Signs Temp Pulse Pulse Resp BP BP Pulse Ox 02/16/24 16:14 97.6 F 101 H 18 99/63 93 L 02/16/24 11:24 103 H 18 90/62 91 L 02/16/24 08:57 97.5 F L 124 H 18 124/69 97 02/16/24 04:00 98.0 F 66 17 110/66 95 02/16/24 02:00 63 16 02/15/24 23:58 97.6 F 16 95/58 93 L 02/15/24 23:00 98.1 F 98 19 94/61 96 02/15/24 22:14 98.1 F 97 20 104/60 96 02/15/24 20:54 100.3 F H 90 18 94/52 96 02/15/24 20:30 130 H 18 97/61 95 02/15/24 20:00 106 H 19 100/52 95 02/15/24 19:05 100.8 F H 69 20 90/70 97 Intake and Output 02/16/24 02/16/24 02/16/24 06:59 14:59 22:59 Intake Total 132 Balance 132 Intake: IV 20 Invasive Line 1 20 Oral 112 Other: Voiding Method Urinal Urinal Weight 69 kg General: Well-developed, well-nourished, male, in no acute distress HEENT: NC/AT, external ears intact, hearing intact to conversational speech Cardiovascular: manager monitoring in place, B/L calves are supple, nontender, no cords, B/L LE non-pitting edema L>R, B/L 3+ pedal edema Respiratory: chest rise symmetric, on RA, +2-3 word conversational dyspnea Abdomen: Soft, nontender, nondistended Genitourinary: not assessed Musculoskeletal: ROM WFL EXCEPT: +left shoulder pain d/t old rotator cuff injury, B/L DF weakness Neurological: Alert and oriented x 4. CN II-XII: Grossly intact. Speech is clear, fluent MMT: B/L HG/EF 5/5, B/L EE 4+/5, L SABD 4+/5, R SABD 5/5 B/L HF/KE 4-/5, B/L DF weakness/unable to move to antigravity Sensation: intact to light touch of B/L upper and lower extremities Skin: Skin intact where visible to head, neck, and bilateral upper and lower extremities EXCEPT: RUE IV, generalized bruising of B/L UEs Psychiatric: Mood calm, cooperative Results CBC & Chem 7: 02/16/24 00:40 02/16/24 06:00 Labs: Abnormal Lab Results - Last 24 Hours (Table) 02/15/24 02/15/24 02/15/24 Range/Units 19:21 19:21 19:21 RBC 4.22 L (4.30-5.90) m/uL Hgb (13.0-17.5) gm/dL Hct (39.0-53.0) % Plt Count (150-450) k/uL Lymphocytes # 0.7 L (1.0-4.8) k/uL Sodium 134 L (137-145) mmol/L Potassium (3.5-5.1) mmol/L BUN 29 H (9-20) mg/dL Glucose 112 H (74-99) mg/dL POC Glucose (mg/dL) (70-110) mg/dL Plasma Lactic Acid Emeka 3.2 H* (0.7-2.0) mmol/L Calcium (8.4-10.2) mg/dL Phosphorus 2.2 L (2.5-4.5) mg/dL AST 70 H (17-59) U/L Troponin I (0.000-0.034) ng/mL Total Protein 5.5 L (6.3-8.2) g/dL Albumin 3.1 L (3.5-5.0) g/dL Urine Protein (Negative) Urine Glucose (UA) (Negative) Urine Blood (Negative) Urine RBC (0-5) /hpf Urine Mucus (None) /hpf Urine Yeast (Budding) (None) /hpf 02/15/24 02/15/24 02/16/24 Range/Units 19:21 20:58 00:40 RBC 3.85 L (4.30-5.90) m/uL Hgb 12.1 L (13.0-17.5) gm/dL Hct 37.8 L (39.0-53.0) % Plt Count 147 L (150-450) k/uL Lymphocytes # 0.6 L (1.0-4.8) k/uL Sodium (137-145) mmol/L Potassium (3.5-5.1) mmol/L BUN (9-20) mg/dL Glucose (74-99) mg/dL POC Glucose (mg/dL) (70-110) mg/dL Plasma Lactic Acid Emeka (0.7-2.0) mmol/L Calcium (8.4-10.2) mg/dL Phosphorus (2.5-4.5) mg/dL AST (17-59) U/L Troponin I 0.043 H* (0.000-0.034) ng/mL Total Protein (6.3-8.2) g/dL Albumin (3.5-5.0) g/dL Urine Protein 1+ H (Negative) Urine Glucose (UA) 4+ H (Negative) Urine Blood Moderate H (Negative) Urine RBC 45 H (0-5) /hpf Urine Mucus Occasional H (None) /hpf Urine Yeast (Budding) Occasional H (None) /hpf 02/16/24 02/16/24 Range/Units 06:00 16:18 RBC (4.30-5.90) m/uL Hgb (13.0-17.5) gm/dL Hct (39.0-53.0) % Plt Count (150-450) k/uL Lymphocytes # (1.0-4.8) k/uL Sodium 133 L (137-145) mmol/L Potassium 3.4 L (3.5-5.1) mmol/L BUN 26 H (9-20) mg/dL Glucose 101 H (74-99) mg/dL POC Glucose (mg/dL) 139 H (70-110) mg/dL Plasma Lactic Acid Emeka (0.7-2.0) mmol/L Calcium 7.4 L (8.4-10.2) mg/dL Phosphorus (2.5-4.5) mg/dL AST (17-59) U/L Troponin I (0.000-0.034) ng/mL Total Protein 4.6 L (6.3-8.2) g/dL Albumin 2.4 L (3.5-5.0) g/dL Urine Protein (Negative) Urine Glucose (UA) (Negative) Urine Blood (Negative) Urine RBC (0-5) /hpf Urine Mucus (None) /hpf Urine Yeast (Budding) (None) /hpf Assessment and Plan Assessment: #Impaired gait and ADLS secondary to rhabdomyolysis secondary to fall with downtime of ~12 hours -Comprehensive therapies #COVID-19 #Generalized weakness #Hyponatremia -02/15: sodium 133 #Hypokalemia -02/15: potassium 3.4 #Elevated troponin #COPD with mild acute exacerbation -oral steroids per APR #Mild acute heart failure exacerbation -Per records, patient has EF of around 35% #Chronic venous stasis of bilateral lower extremities -Records indicate no current evidence of cellulitis but patient was recently treated for cellulitis and is planned to complete the remaining course of cefazolin per APR # Bowel/ Bladder: Nursing to monitor and report concerns if any. -02/15: LBM last night # Diet -Regular per EMR # Skin/wound: Skin/Wound care to follow as needed # Pain Management -Acetaminophen 650 mg q6h prn, morphine IV q4h prn -02/15: denies current complaints of pain # DVT Prophylaxis: -Eliquis 5mg BID # Comorbidities: atrial fibrillation # Your medical dx and mgt Goals: Modified Independent mobility and ADLS both basic and advanced; increased functional mobility/strength; increased balance, safety, endurance. Improvement in medical issues through your care. Barriers: endurance, fall risk, weakness Discharge recommendation: Patient is noted to be significantly below baseline function, would benefit from a structured inpatient rehab stay with 3 hours of therapy a day, 6-7 days a week with Physical Therapy, Occupational Therapy, and Speech Therapy. Patient has medical complexity requiring nursing services, close physician medical management, and interdisciplinary team approach for rehab. Patient is motivated, was previously independent with ADLs, and has good social support/supportive family. Discussed with case management, referrals have been sent to IPR program at [facility] per family request. If [facility] is unable to accept patient, family and patient are agreeable to IPR admission at [facility]. Patient seen and examined by Jen Zhu PA-C, note remotely prepped and scribed by July BENAVIDEZ Patient seen in coordination with Dr. Mc. Thank you for consulting us in the care of this patient.
[2024-02-16] MEDS ORDERED: IPRATROPIUM-ALBUTEROL 3 ML NEB INHALATION PRN (18:44)
[2024-02-16] MEDS ORDERED: TIOTROPIUM 2.5 MCG INHALER INHALATION PRN (19:58)
[2024-02-16 20:01] LABS: Glucose,Whole Blood 190 mg/dL (70-110)
[2024-02-16] MEDS: ATORVASTATIN 40 MG TAB PO SCH (20:41)
[2024-02-16] MEDS: TAMSULOSIN 0.4 MG CAP.ER.24H PO SCH (20:41)
[2024-02-16] MEDS: ALBUTEROL HFA INHALER INHALATION PRN (21:30)
[2024-02-17 06:14] LABS: Glucose,Whole Blood 124 mg/dL (70-110)
[2024-02-17] MEDS: FUROSEMIDE 20 MG TAB PO SCH (08:26)
[2024-02-17 08:29] VITALS: BP 91/62; PULSE 62; TEMP 97.3
[2024-02-17 09:23] LABS: HCT 37.7 % (39.0-53.0); HGB 12.3 gm/dL (13.0-17.5); MCHC 32.6 g/dL (31.0-37.0); MCV 98.2 fL (80.0-100.0); Mean Platelet Volume 8.2; Platelet Count 159 k/uL (150-450); RBC 3.84 m/uL (4.30-5.90); RDW 13.7 % (11.5-15.5); WBC 7.4 k/uL (3.8-10.6)
[2024-02-17 09:40] LABS: African American GFR (CKD) >90 (>60 ml/min/1.73 sqM); Anion Gap 5 mmol/L; Blood Urea Nitrogen 19 mg/dL (9-20); Calcium 8.1 mg/dL (8.4-10.2); Carbon Dioxide 25 mmol/L (22-30); Chloride 107 mmol/L (98-107); Glucose 152 mg/dL (74-99); Non-African American GFR(CKD) >90 (>60 ml/min/1.73 sqM); Potassium 4.1 mmol/L (3.5-5.1); Sodium 137 mmol/L (137-145)
--- NOTE | 2024-02-17 10:13 | P.DS ---
Providers Date of admission: 02/15/24 20:24 Expected date of discharge: 02/17/24 Attending physician: Viviane Smith Consults: 02/16/24 11:25 Consult Physician Routine Consulting Provider: Cooper Herrera Consult Reason/Comments: eval for IPR Do you want consulting provider notified?: Yes Primary care physician: Savana Galicia Hospital Course: Discharge diagnosis: Generalized weakness secondary to his recent illness age-related muscle atrophy and chronic medical conditions. PT and OT will evaluate the patient patient will be evaluated for inpatient rehab in subacute rehab. Hyponatremia probably mild hypervolemia patient's IV fluids will be discontinued patient will be started on his oral Lasix Aldactone. Continue Jardiance and other heart failure medications Hypokalemia potassium will be replaced Mild elevation of troponin type II ND secondary to congestive heart failure COPD with mild acute exacerbation continue with the oral steroids Current heart failure chronic systolic function with mild acute exacerbation patient has EF of around 35% Permanent atrial fibrillation for which patient is on anticoagulation with Eliquis which will be continued Chronic venous stasis of bilateral lower extremities without any evidence of cellulitis at this time patient was recently treated for cellulitis and will complete the course of cefazolin. Hypotension secondary to chronic CHF and low ejection fraction DVT prophylaxis: On anticoagulation Hospital Course: Patient pleasant 81-year-old male came in after a fall patient was laying on the floor all night. Patient was recently discharged from the hospital after he was treated for COVID 19 pneumonia although patient does have extensive other medical issues including congestive heart failure EF of around 30 to 35% COPD. Physical therapy Occupational Therapy will evaluate the patient we are asked to the patient for inpatient rehab. Patient respiratory status is at his baseline although he has some slight wheezing on exam sodium is low at 133 potassium 3.4 patient only takes as needed Lasix for pedal edema as needed. But does take a scheduled Aldactone patient blood pressure is low normal I do not have any BNP available but troponin is mildly elevated at 0.043 EMR obtaining repeat troponin level EKG did not show any acute ST-T wave changes. 02/17/24:Patient examined today. He denies any new complaints. Patient seen at bedside today and is feeling good and excited about discharge. Patient will be discharged today to [facility] inpatient rehab. Patient is advised to be compliant with medications. Patient is advised to follow-up with PCP in 1-2 days. Vital signs are reviewed and stable GENERAL: The patient is alert and oriented x3, not in any acute distress. Well developed, well nourished. Obese HEENT: Pupils are round and equally reacting to light. EOMI. No scleral icterus. No conjunctival pallor. Normocephalic, atraumatic. No pharyngeal erythema. No thyromegaly. CARDIOVASCULAR: S1 and S2 present. No murmurs, rubs, or gallops. PULMONARY: Mild expiratory wheezing on exam ABDOMEN: Soft, nontender, nondistended, normoactive bowel sounds. No palpable organomegaly. MUSCULOSKELETAL: No joint swelling or deformity. EXTREMITIES: No cyanosis, clubbing, or pedal edema. NEUROLOGICAL: Gross neurological examination did not reveal any focal deficits. Significant generalized weakness. SKIN: No rashes. A total of 30 minutes of time were spent preparing this complex discharge summary. Patient was discharged on 02/17/24 at 1000. Patient Condition at Discharge: Stable Plan - Discharge Summary Discharge Rx Participant: No New Discharge Prescriptions: Continue predniSONE 20 mg PO DAILY Tamsulosin [Flomax] 0.4 mg PO HS Atorvastatin [Lipitor] 40 mg PO HS Spironolactone [Aldactone] 12.5 mg PO DAILY #30 tab Losartan [Cozaar] 12.5 mg PO DAILY #30 tab Cephalexin [Keflex] 500 mg PO DIRECTED Furosemide [Lasix] 20 mg PO DAILY PRN PRN Reason: Edema Apixaban [Eliquis] 5 mg PO BID Dapagliflozin Propanediol [Farxiga] 10 mg PO DIRECTED Metoprolol Succinate (ER) [Toprol XL] 25 mg PO DIRECTED Discharge Medication List Apixaban [Eliquis] 5 mg PO BID 02/03/24 [History] Atorvastatin [Lipitor] 40 mg PO HS 02/03/24 [History] Furosemide [Lasix] 20 mg PO DAILY PRN 02/03/24 [History] Tamsulosin [Flomax] 0.4 mg PO HS 02/03/24 [History] predniSONE 20 mg PO DAILY 02/03/24 [History] Losartan [Cozaar] 12.5 mg PO DAILY #30 tab 02/06/24 [Rx] Spironolactone [Aldactone] 12.5 mg PO DAILY #30 tab 02/06/24 [Rx] Cephalexin [Keflex] 500 mg PO DIRECTED 02/15/24 [History] Dapagliflozin Propanediol [Farxiga] 10 mg PO DIRECTED 02/15/24 [History] Metoprolol Succinate (ER) [Toprol XL] 25 mg PO DIRECTED 02/15/24 [History] Follow up Appointment(s)/Referral(s): Savana Galicia DO [Primary Care Provider] - 1-2 days Activity/Diet/Wound Care/Special Instructions: Activity: As tolerated Diet: Regular diet Discharge Disposition: TRANSFER TO SNF/ECF
== END 2024-02-17 10:58 ==
LOC: EC 19:03 → 6NMEDSUR 20:24 → 3SCARD 23:17
PROVIDERS: ADMIT Hospitalist; ATTEND Hospitalist
DX: R53.1 Weakness (principal); M62.82 Rhabdomyolysis; E87.1 Hypo-osmolality and hyponatremia; E87.6 Hypokalemia; I21.A1 Myocardial infarction type 2; I50.22 Chronic systolic (congestive) heart failure; I48.21 Permanent atrial fibrillation; I87.8 Other specified disorders of veins; I95.89 Other hypotension; G89.29 Other chronic pain; M25.512 Pain in left shoulder; J44.1 Chronic obstructive pulmonary disease with (acute) exacerbation; W19.XXXA Unspecified fall, initial encounter; Z88.8 Allergy status to other drugs, medicaments and biological substances; Z79.01 Long term (current) use of anticoagulants; Z79.899 Other long term (current) drug therapy; Z86.16 Personal history of COVID-19; Z87.01 Personal history of pneumonia (recurrent); Z87.891 Personal history of nicotine dependence
CPT/HCPCS: 96361 ×2; 96365; 96375; 99285; 36415; 94640; 94760; 93005; 97162; 97166; 83880; 80053 ×2; 80048; 83605 ×2; 83735 ×2; 84100 ×2; 84443; 84484 ×2; 85025 ×2; 85027; 85610; 85730; 81001; 71046; G0378 ×4; J0131; J1885; J7512 ×2

== ENCOUNTER 2024-04-28 16:29 | Emergency (ER) | payer MEDICARE, BC ==
[2024-04-28 16:46] VITALS: RESP 18
--- NOTE | 2024-04-28 16:58 | ED ---
Male Urogenital HPI - General Chief complaint: Urogenital Stated complaint: Urogenital Time Seen by Provider: 04/28/24 16:55 Source: patient, family, RN notes reviewed, old records reviewed Mode of arrival: ambulatory Limitations: no limitations - History of Present Illness Initial comments: This is an 83-year-old male to the ER today. He presents today for evaluation regards to unable to retract his foreskin. History of being uncircumcised. No prior history of same issue in the past MD Complaint: other (Foreskin issue) -: hour(s) Location: penis Quality: aching Consistency: constant Improves with: none Worsens with: none Reports: denies other symptoms - Related Data Home Medications Medication Instructions Recorded Confirmed Apixaban [Eliquis] 5 mg PO BID 02/03/24 02/15/24 Atorvastatin [Lipitor] 40 mg PO HS 02/03/24 02/15/24 Furosemide [Lasix] 20 mg PO DAILY PRN 02/03/24 02/15/24 Tamsulosin [Flomax] 0.4 mg PO HS 02/03/24 02/15/24 predniSONE 20 mg PO DAILY 02/03/24 02/15/24 Cephalexin [Keflex] 500 mg PO DIRECTED 02/15/24 02/15/24 Dapagliflozin Propanediol [Farxiga] 10 mg PO DIRECTED 02/15/24 02/15/24 Metoprolol Succinate (ER) [Toprol 25 mg PO DIRECTED 02/15/24 02/15/24 XL] Previous Rx's Medication Instructions Recorded Spironolactone [Aldactone] 12.5 mg PO DAILY #30 tab 02/06/24 Allergies Allergy/AdvReac Type Severity Reaction Status Date / Time itraconazole [From Sporanox] Allergy Rash/Hives Verified 04/28/24 16:46 Review of Systems ROS Statement: Those systems with pertinent positive or pertinent negative responses have been documented in the HPI. ROS Other: All systems not noted in ROS Statement are negative. Past Medical History Past Medical History: Atrial Fibrillation History of Any Multi-Drug Resistant Organisms: None Reported Past Surgical History: Heart Catheterization With Stent Additional Past Surgical History / Comment(s): heart cath 2016 Past Anesthesia/Blood Transfusion Reactions: No Reported Reaction Date of Last Stent Placement:: 2016 Past Psychological History: No Psychological Hx Reported Smoking Status: Former smoker Past Alcohol Use History: None Reported Past Drug Use History: None Reported General Exam Limitations: no limitations General appearance: alert, in no apparent distress Head exam: Present: atraumatic, normocephalic, normal inspection Eye exam: Present: normal appearance, PERRL, EOMI. Absent: scleral icterus, conjunctival injection, periorbital swelling ENT exam: Present: normal exam, mucous membranes moist Neck exam: Present: normal inspection. Absent: tenderness, meningismus, lymphadenopathy Respiratory exam: Present: normal lung sounds bilaterally. Absent: respiratory distress, wheezes, rales, rhonchi, stridor Cardiovascular Exam: Present: regular rate, normal rhythm, normal heart sounds. Absent: systolic murmur, diastolic murmur, rubs, gallop, clicks GI/Abdominal exam: Present: soft, normal bowel sounds. Absent: distended, tenderness, guarding, rebound, rigid Extremities exam: Present: normal inspection, full ROM, normal capillary refill. Absent: tenderness, pedal edema, joint swelling, calf tenderness Back exam: Present: normal inspection Neurological exam: Present: alert, oriented X3, CN II-XII intact Psychiatric exam: Present: normal affect, normal mood Skin exam: Present: warm, dry, intact, normal color. Absent: rash Course Vital Signs 04/28/24 16:41 Temperature 97.4 F L Pulse Rate 94 Respiratory 18 Rate Blood Pressure 134/82 O2 Sat by Pulse 97 Oximetry - Reevaluation(s) Reevaluation #1: 04/28/24 18:59 Medical records reviewed Reevaluation #2: 04/28/24 18:59 Patient symptoms unchanged Reevaluation #3: 04/28/24 18:59 Patient informed of results and questions answered Reevaluation #4: Was pt. sent in by a medical professional or institution (, PA, CODE MACHINE OPERATOR, urgent care, hospital, or alf...) When possible be specific @ -no Did you speak to anyone other than the patient for history (EMS, parent, family, police, friend...)? What history was obtained from this source @ -no Did you review nursing and triage notes (agree or disagree)? Why? @ -agree Are old charts reviewed (outside hosp., previous admission, EMS record, old EKG, old radiological studies, urgent care reports/EKG's, alf records)? Report findings @ -yes Differential Diagnosis (chest pain, altered mental status, abdominal pain women, abdominal pain men, vaginal bleeding, weakness, fever, dyspnea, syncope, headache, dizziness, GI bleed, back pain, seizure, CVA, palpatations, mental health, musculoskeletal)? @ -prior EKG interpreted by me (3pts min.). @ -yes X-rays interpreted by me (1pt min.). @ -yes negative for acute disease CT interpreted by me (1pt min.). @ -no U/S interpreted by me (1pt. min.). @ -no What testing was considered but not performed or refused? (CT, X-rays, U/S, labs)? Why? @ -none What meds were considered but not given or refused? Why? @ -none Did you discuss the management of the patient with other professionals ( professionals i.e. , PA, CODE MACHINE OPERATOR, lab, RT, psych nurse, social media marketing manager, building mover, teacher, officer lieutenant, case aide)? Give summary @ -no Was smoking cessation discussed for >3mins.? @ -no Was critical care preformed (if so, how long)? @ -no Were there social determinants of health that impacted care today? How? (Homelessness, low income, unemployed, alcoholism, drug addiction, transportation, low edu. Level, literacy, decrease access to med. care, half-way, rehab)? @ -none Was there de-escalation of care discussed even if they declined (Discuss DNR or withdrawal of care, Hospice)? DNR status @ -no What co-morbidities impacted this encounter? (DM, HTN, Smoking, COPD, CAD, Cancer, CVA, ARF, Chemo, Hep., AIDS, mental health diagnosis, sleep apnea, morbid obesity)? @ -none Was patient admitted / discharged? Hospital course, mention meds given and route, prescriptions, significant lab abnormalities, going to OR and other pertinent info. @ - Undiagnosed new problem with uncertain prognosis? @ -no Drug Therapy requiring intensive monitoring for toxicity (Heparin, Nitro, Insulin, Cardizem)? @ -no Were any procedures done? @ -no Diagnosis/symptom? @ - Acute, or Chronic, or Acute on Chronic? @ -Acute Uncomplicated (without systemic symptoms) or Complicated (systemic symptoms)? @ -Complicated Side effects of treatment? @ -no Exacerbation, Progression, or Severe Exacerbation? @ -exacerbation Poses a threat to life or bodily function? How? (Chest pain, [place], [place], pneumonia, PE, COPD, DKA, ARF, appy, cholecystitis, CVA, Diverticulitis, Homicidal, Suicidal, threat to staff... and all critical care pts) @ -yes Medical Decision Making - Medical Decision Making 83 male to ER for evaluation of difficulty to retract foreskin and able to retract foreskin here in the ER, area is clean patient is given candidal treatment and can be discharged home, there is no phimosis present on exam or paraphimosis - Lab Data Lab Results 04/28/24 Range/Units 18:14 Urine Color Yellow Urine Appearance Clear (Clear) Urine pH 6.0 (5.0-8.0) Ur Specific [employer] 1.022 (1.001-1.035) Urine Protein Trace H (Negative) Urine Glucose (UA) Negative (Negative) Urine Ketones Negative (Negative) Urine Blood Moderate H (Negative) Urine Nitrite Negative (Negative) Urine Bilirubin Negative (Negative) Urine Urobilinogen 2.0 (<2.0) mg/dL Ur Leukocyte Esterase Negative (Negative) Urine RBC 26 H (0-5) /hpf Urine WBC 1 (0-5) /hpf Ur Squamous Epith Cells <1 (0-4) /hpf Urine Mucus Moderate H (None) /hpf Disposition Clinical Impression: Balanitis, Balanoposthitis, Phimosis Disposition: HOME SELF-CARE Condition: Good Instructions (If sedation given, give patient instructions): Phimosis (ED), B alanitis (ED) Is patient prescribed a controlled substance at d/c from ED?: No Referrals: Mukul Mariee MD [STAFF PHYSICIAN] - 1-2 days Time of Disposition: 18:00
[2024-04-28] MEDS: MUPIROCIN 2% OINT 22 GM TUBE TOPICAL STA (18:18)
[2024-04-28] MEDS: CLOTRIMAZOLE 1% CREAM 30 GM TUBE TOPICAL STA (18:18)
[2024-04-28 18:28] LABS: Appearance,Urine Clear (Clear); Bilirubin,Urine Negative (Negative); Blood,Urine Moderate (Negative); Color,Urine Yellow; Glucose,Urine (UA) Negative (Negative); Ketones,Urine Negative (Negative); Leukocyte Esterase,Urine Negative (Negative); Mucus,Urine Moderate /hpf; Nitrite,Urine Negative (Negative); Protein,Urine Trace (Negative); RBC,Urine 26 /hpf (0-5); Specific Gravity,Urine 1.022 (1.001-1.035); Squamous Epithelial Cell,Urine <1 /hpf (0-4); WBC,Urine 1 /hpf (0-5)
[2024-04-28 19:01] VITALS: BP 116/77; PULSE 75; TEMP 97.9
== END 2024-04-28 19:00 | disposition home or self-care (01) ==
LOC: EC 16:29
DX: N48.1 Balanitis (principal); N47.1 Phimosis; Z87.891 Personal history of nicotine dependence; Z88.8 Allergy status to other drugs, medicaments and biological substances
CPT/HCPCS: 81001; 99283